=== PATIENT | male | born 1970 | race Caucasian/White ===

== ENCOUNTER → 2024-03-29 08:56 | Outpatient (BNVA) | payer OTHER, SELFPAY | PROVIDERS: Referring Provider Nurse Practitioner; Visit Provider Student in an Organized Health Care Education/Training Program | DX: K46.9 Unspecified abdominal hernia without obstruction or gangrene (principal) | CPT/HCPCS: 99204 ==

== ENCOUNTER → 2024-04-07 09:19 | Outpatient (BNVA) | payer OTHER, SELFPAY | PROVIDERS: Visit Provider Student in an Organized Health Care Education/Training Program | DX: K46.9 Unspecified abdominal hernia without obstruction or gangrene (principal) | CPT/HCPCS: 99214 ==

== ENCOUNTER → 2024-04-13 12:40 | Outpatient (BNVA) | payer OTHER, SELFPAY | PROVIDERS: Referring Provider Nurse Practitioner; Visit Provider Nurse Practitioner Family | DX: L57.0 Actinic keratosis (principal); L21.8 Other seborrheic dermatitis; L02.423 Furuncle of right upper limb; L02.424 Furuncle of left upper limb | CPT/HCPCS: 17000; 99204 ==

== ENCOUNTER 2024-04-19 06:50 | Day surgery (SDC) | payer OTHER, SELFPAY ==
[2024-04-19] VITALS (9 sets, daily range): BP systolic 115–164; BP diastolic 83–109; PULSE 55–119; RESP 18; TEMP 36.1–36.2; O2SAT 93–99; BMI 38.0
[2024-04-19] MEDS: sodium chloride 0.9% 1,000 ML 30 ML IV (08:20)
--- NOTE | 2024-04-19 08:45 | W.PM.OPSUD ---
Surgery/Procedure H&P Update DATE OF PROCEDURE: April 19, 2024 DATE H&P PERFORMED: 04/07/24 H&P UPDATE INFORMATION: I have reviewed H&P completed within last 30 days, I have examined patient prior to procedure and No changes to prior documentation PLANNED PROCEDURE: Operation Date: 04/19/24 08:25 Proposed Procedures p Umbilical Hernia Repair Open Umbilical Hernia Repair w/ Mesh [id number], k46.9(Not Applicable) - Pravin Herrera MD
[2024-04-19] MEDS: ceFAZolin 2,000 mg SDV 2000 MG IVP (09:00)
[2024-04-19] MEDS: lidocaine-epi 1% PF 1:200,000 30 mL SDV INJECTION (09:25)
--- NOTE | 2024-04-19 09:49 | W.PM.BPONFUL ---
Date of Procedure: 04/19/2024 Surgeon: Dr. Herrera Special Events Fundraiser(s): None Procedure(s) performed: Open umbilical hernia repair using dura mesh Findings of the procedure(s): 2 x 2 cm fascial defect. Hernia sac did not contain bowel. Estimated blood loss: 5 cc Specimen(s) removed: None Post-operative diagnosis: Umbilical hernia Pathology: None Implant(s): Duramesh #1 Anesthesia: General Anesthesia Complications: None Brief history/preop diagnosis: 53-year-old male who presented with an umbilical hernia. It was causing patient discomfort. Discussed risk and benefits of umbilical hernia repair and patient agreed to proceed. Full operative report: Consent was obtained for open umbilical hernia repair. Patient was taken to the operating room. He was placed supine. Preoperative Ancef was administered. SCDs were on and working. General anesthesia was induced. The abdomen was prepped and draped in the usual sterile fashion. A curvilinear incision at the umbilicus was carried out. Hernia sac was dissected bluntly and reduced into the abdomen abdomen. It did not contain bowel. Fascial edges were freshened. The fascial defect was 2 x 2 cm. Dura mesh #1 was used in an interrupted fashion to close the fascial defect. Adequate hemostasis was confirmed. A running 3-0 Vicryl was used in the deep dermal layer. Skin was closed using 4-0 Monocryl. Surgical glue was applied afterwards. Patient woke up from anesthesia without any complications and transferred to PACU. Condition: Stable Dispostion: Home
[2024-04-19] MEDS: fentaNYL 50 mcg/mL INJ 2mL IVP (10:00)
[2024-04-19] MEDS: metoprolol tartrate 1 mg/1 mL SDV 5 mL IVP (10:25)
--- NOTE | 2024-04-19 11:20 | ANE.PACU2 ---
Inpatient post-anesthesia follow up: Airway intact: Yes Vital signs: Temperature 97.2 F Pulse Rate 102 Respiratory Rate 18 Blood Pressure 133/91 Pulse Oximetry 93 Oxygen Delivery Me thod Room Air Oxygen Flow Rate 8 Fraction of Inspir ed Oxygen Hydration adequate: Yes Nausea and vomiting: No Pain level: 1 Mental status: Baseline
== END 2024-04-19 11:20 | disposition home or self-care (01) ==
PROVIDERS: Visit Provider Student in an Organized Health Care Education/Training Program
PROC: (CPT 49591; principal; 2024-04-19 08:15)
DX: K42.9 Umbilical hernia without obstruction or gangrene (principal); Z87.891 Personal history of nicotine dependence
CPT/HCPCS: 49591; C1713; J0690; J1100; J1170; J2250; J2405; J2704; J2710; J3010; J3490; J7030

== ENCOUNTER → 2024-05-02 08:58 | Outpatient (BNVA) | payer OTHER, SELFPAY | PROVIDERS: Visit Provider Student in an Organized Health Care Education/Training Program | DX: K46.9 Unspecified abdominal hernia without obstruction or gangrene (principal) | CPT/HCPCS: 99214 ==

== ENCOUNTER 2024-06-23 12:15 | Emergency (ER) | payer OTHER, SELFPAY ==
[2024-06-23 12:24] VITALS: BP 137/87; PULSE 77; RESP 16; TEMP 36.5; O2SAT 95; BMI 39.5
--- NOTE | 2024-06-23 13:46 | ECG_ITS ---
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 Measurements Intervals [place] Rate: 105 P: 70 DE: 134 QRS: 91 QRSD: 83 T: 60 QT: 324 QTc: 429 Interpretive Statements SINUS TACHYCARDIA BORDERLINE RIGHT AXIS DEVIATION [QRS AXIS > 90] POSSIBLE RIGHT VENTRICULAR CONDUCTION DELAY [RSR (QR) IN V1/V2] No previous ECG available for comparison Electronically Signed On 06-23-2024 21:55:59 PROP DRAWER by Markell Martin M.D. [id number]
[2024-06-23 15:31] LABS: Basophils % 0.4 %; Eosinophils % 0.2 %; Lymphocytes # 1.5 10^3/uL (0.8-4.8); Lymphocytes % 14.5 %; Mean Corpuscular HGB Conc 33.9 g/dL (30-55); Mean Corpuscular Hemoglobin 29.6 pg (27-33); Mean Corpuscular Volume 87.3 fl (82-101); Monocytes # 0.5 10^3/uL (0.2-0.9); Neutrophils # 8.14 10^3/uL (1.8-7.7); Neutrophils % 79.5 %; Nucleated Red Blood Cells % 0 %; Platelet Count 302 10^3/cmm (157-399); Red Blood Count 5.61 10^6/uL (3.85-5.65); Red Cell Distribution Width 11.9 % (12.1-15.1); White Blood Count 10.23 10^3/uL (3.29-11.43)
[2024-06-23 15:59] LABS: Alanine Aminotransferase 34 U/L (0-41); Albumin Level 4.8 g/dL (3.5-5.2); Alkaline Phosphatase 74 U/L (40-130); Anion Gap 20.4 (5-19); Aspartate Amino Transferase 34 U/L (0-40); Blood Urea Nitrogen 13 mg/dL (6-20); Calcium 10.2 mg/dL (8.5-10.5); Carbon Dioxide 22 mmol/L (22-29); Chloride 101 mmol/L (98-107); Creatinine Clr Calc Pharmacy 99.1289; Glomerular Filtration Rate 70.6 mL/min (90-130); Glucose 124 mg/dL (65-115); Lipase 35 U/L (13-60); Osmolality Calculated 290 mOsm/kg (285-295); Potassium 4.4 mmol/L (3.5-5.1); Sodium 139 mmol/L (136-145); Total Bilirubin 0.8 mg/dL (0.15-1.2); Total Protein 7.8 g/dL (6.6-8.7)
--- NOTE | 2024-06-23 18:35 | ED_ITS ---
HPI - Nausea/Vomiting/Diarrhea 2 General: Chief complaint: Nausea/Vomiting/Diarrhea Stated complaint: vomitting clear muscus Time Seen by Provider: 06/23/24 12:25 History of Present Illness: 53-year-old man who presents the emergen cy room with vomiting. He says about once a year he gets something like this. He says over the last week or so he has been having vomiting in the morning. He will have phlegm and throw up. Says though last day or so he has not been to keep anything down. He cannot keep down his antiemetic pills. No focal abdominal pain. No diarrhea. Related Data Home Medications Medication Instructions Recorded Confirmed aripiprazole 20 mg tablet (Abilify) 20 mg PO DAILY 03/29/24 05/02/24 atorvastatin 10 mg tablet 10 mg PO DAILY 03/29/24 05/02/24 baclofen 10 mg tablet 10 mg PO TID PRN Pain 03/29/24 05/02/24 gabapentin 600 mg tablet 600 mg PO BID 03/29/24 05/02/24 hydroxyzine HCl 50 mg tablet 50 mg PO TID PRN Anxiety 03/29/24 05/02/24 lisinopril 10 mg tablet 10 mg PO DAILY 03/29/24 05/02/24 melatonin 5 mg capsule 5 mg PO .1 HS 03/29/24 05/02/24 omeprazole 20 mg capsule,delayed 20 mg PO DAILY 03/29/24 05/02/24 release prazosin 5 mg capsule 5 mg PO DAILY 03/29/24 05/02/24 sildenafil 100 mg tablet 100 mg PO DAILY PRN Sexual Activity 03/29/24 05/02/24 tamsulosin 0.4 mg capsule 0.4 mg PO DAILY 03/29/24 05/02/24 Previous Rx's Medication Instructions Recorded ondansetron 8 mg disintegrating 8 mg PO Q6H #14 tabs 06/23/24 tablet promethazine 25 mg rectal 25 mg OR Q6H PRN nausea and 06/23/24 suppository vomiting #12 ea Allergies Allergy/AdvReac Type Severity Reaction Status Date / Time clonazepam Allergy ADR-Irritab Verified 06/23/24 12:33 le Opioids - Morphine Analogues Allergy ADR-Nausea Verified 06/23/24 12:33 Review of Systems 2 Narrative: Constitutional symptoms: Negative except as documented in HPI. Skin symptoms: Negative except as documented in HPI. Eye symptoms: Negative except as documented in HPI. ENMT symptoms: Negative except as documented in HPI. Respiratory symptoms: Negative except as documented in HPI. Cardiovascular symptoms: Negative except as documented in HPI. Gastrointestinal symptoms: Negative except as documented in HPI. Genitourinary symptoms: Negative except as documented in HPI. Musculoskeletal symptoms: Negative except as documented in HPI. Neurologic symptoms: Negative except as documented in HPI. Psychiatric symptoms: Negative except as documented in HPI. Endocrine symptoms: Negative except as documented in HPI. PFSH ED 2 PFSH: Surgical History (Updated 05/02/24 @ 10:32 by Pravin Herrera MD) History of hernia surgery 04/19/24 Open umbilical hernia repair using dura mesh- Dr Herrera Social History Smoking and tobacco/nicotine status: former use of tobacco/nicotine Alcohol intake: never Physical Exam 2 Narrative: EXAM NARRATIVE: General: Alert, no acute distress. Skin: Warm, dry. Head: Normocephalic, atraumatic. Neck: Supple, trachea midline. Eye: Extraocular movements are intact. Ears, nose, mouth and throat: mucosa moist. Cardiovascular: Regular, Normal peripheral perfusion. Respiratory: Lungs are clear to auscultation, respirations are non-labored, breath sounds are equal, Symmetrical chest wall expansion. Gastrointestinal: Soft, Nontender, Non distended Musculoskeletal: Normal ROM, no deformity. Neurological: Alert and oriented, No focal neurological deficit observed. Psychiatric: Cooperative, appropriate mood & affect. Course 2 Vital Signs: Vital signs: Vital Signs Temperature 97.7 F 06/23/24 12:24 Pulse Rate 94 06/23/24 19:15 Respiratory Rate 16 06/23/24 19:15 Blood Pressure 146/108 06/23/24 19:15 Pulse Oximetry 99 06/23/24 19:15 Oxygen Delivery Me thod Room Air 06/23/24 19:15 MDM - Nausea/Vomiting/Diarrhea Medical Decision Making Medical decision making: Differential diagnosis for this patient with nausea and vomiting including but not limited to and based on the above HPI, review of systems and physical exam: Urinary tract infection. Appendicitis. Cholecystis. colitis. small bowel obstruction. crohn's flare. pancreatitis. gastritis. peptic ulcer. cyclic vomiting. Viral illness. Influenza. COVID. - Workup - labwork and imaging ordered to evaluate, rule in and rule out above pathologies. Lab Review: Laboratory results were reviewed and interpreted by myself the emergency room physician. Lab work is unremarkable. No leukocytosis. No anemia. No renal failure. Lipase is normal. Liver enzymes are normal. I reviewed the patient's medical record. Reexamination: Patient is required 8 mg of Zofran and then required Compazine Benadryl and more Zofran. He is somewhat improved on discharge. Assessment and plan: Nausea and vomiting ?8 mg IV Zofran, some improvement. Then 10 mg Compazine, 50 mg Benadryl and another 8 mg of Zofran. - Discharged home - Discussed plan with patient. Answered any questions. - Evaluation and treatment of this problem were appropriate in the emergency setting. Lab Data 06/23/24 15:00 06/23/24 15:00 Laboratory Results WBC 10.23 10^3/uL (3.29-11.43) 06/23/24 15:00 RBC 5.61 10^6/uL (3.85-5.65) 06/23/24 15:00 Hgb 16.60 g/dL (11.27-16.99) 06/23/24 15:00 Hct 49.0 % (37-53) 06/23/24 15:00 MCV 87.3 fl (82-101) 06/23/24 15:00 MCH 29.6 pg (27-33) 06/23/24 15:00 MCHC 33.9 g/dL (30-55) 06/23/24 15:00 RDW 11.9 % (12.1-15.1) L 06/23/24 15:00 Plt Count 302 10^3/cmm (157-399) 06/23/24 15:00 MPV 11.0 fL (7.4-10.4) H 06/23/24 15:00 Neut % (Auto) 79.5 % 06/23/24 15:00 Lymph % (Auto) 14.5 % 06/23/24 15:00 [place] % (Auto) 5.0 % 06/23/24 15:00 Eos % (Auto) 0.2 % 06/23/24 15:00 Baso % (Auto) 0.4 % 06/23/24 15:00 Neut # (Auto) 8.14 10^3/uL (1.8-7.7) H 06/23/24 15:00 Lymph # (Auto) 1.5 10^3/uL (0.8-4.8) 06/23/24 15:00 [place] # (Auto) 0.5 10^3/uL (0.2-0.9) 06/23/24 15:00 Eos # (Auto) 0.0 10^3/uL (0.0-0.8) 06/23/24 15:00 Baso # (Auto) 0.0 10^3/uL (0.0-0.1) 06/23/24 15:00 Nucleated RBC % (auto) 0 % 06/23/24 15:00 Nucleated RBCs # 0.0 /100WBC 06/23/24 15:00 Sodium 139 mmol/L (136-145) 06/23/24 15:00 Potassium 4.4 mmol/L (3.5-5.1) 06/23/24 15:00 Chloride 101 mmol/L (98-107) 06/23/24 15:00 Carbon Dioxide 22 mmol/L (22-29) 06/23/24 15:00 Anion Gap 20.4 (5-19) H 06/23/24 15:00 BUN 13 mg/dL (6-20) 06/23/24 15:00 Creatinine 1.1 mg/dL (0.7-1.2) 06/23/24 15:00 GFR Calculation 70.6 mL/min (90-130) L 06/23/24 15:00 Glucose 124 mg/dL (65-115) H 06/23/24 15:00 Calculated Osmolality 290 mOsm/kg (285-295) 06/23/24 15:00 Calcium 10.2 mg/dL (8.5-10.5) 06/23/24 15:00 Total Bilirubin 0.8 mg/dL (0.15-1.2) 06/23/24 15:00 AST 34 U/L (0-40) 06/23/24 15:00 ALT 34 U/L (0-41) 06/23/24 15:00 Alkaline Phosphatase 74 U/L (40-130) 06/23/24 15:00 Total Protein 7.8 g/dL (6.6-8.7) 06/23/24 15:00 Albumin 4.8 g/dL (3.5-5.2) 06/23/24 15:00 Globulin 3.0 g/dL (1.3-4.6) 06/23/24 15:00 Lipase 35 U/L (13-60) 06/23/24 15:00 No radiology studies performed this visit Discharge Plan Discharge Patient Disposition: Home Clinical Impression: Gastroenteritis Condition: Stable Prescriptions: New promethazine 25 mg suppository 25 mg OR Q6H PRN (Reason: nausea and vomiting) Qty: 12 0RF ondansetron 8 mg tablet,disintegrating 8 mg PO Q6H Qty: 14 0RF Rx Instructions: Take 1/2-1 tab every 6 hours as needed for nausea and vomiting No Action aripiprazole [Abilify] 20 mg tablet 20 mg PO DAILY atorvastatin 10 mg tablet 10 mg PO DAILY gabapentin 600 mg tablet 600 mg PO BID baclofen 10 mg tablet 10 mg PO TID PRN (Reason: Pain) hydroxyzine HCl 50 mg tablet 50 mg PO TID PRN (Reason: Anxiety) lisinopril 10 mg tablet 10 mg PO DAILY melatonin 5 mg capsule 5 mg PO .1 HS omeprazole 20 mg capsule,delayed release(DR/EC) 20 mg PO DAILY prazosin 5 mg capsule 5 mg PO DAILY tamsulosin 0.4 mg capsule 0.4 mg PO DAILY sildenafil 100 mg tablet 100 mg PO DAILY PRN (Reason: Sexual Activity) Rx Instructions: administer 30 minutes to 4 hours before activity Discharge Orders: Discharge ED (Routine); Ordered 06/23/24 Ordered By: Deysi Stanley Discharge Diet: Advance as tolerated Discharge Activity: Increase activity as tolerated Patient Instructions: Acute Nausea and Vomiting (DC), Opioid Safety, Pain Management Activity Restrictions/Additional Instructions: Thank you for choosing [facility] for your healthcare needs today. Please realize this is an emergency room and that we are providing you with a medical screening exam and this may not be complete and all inclusive of all the testing and or work up that you may need to determine your ailment or severity of your illness. You have been screened and evaluated and felt safe for discharge. Health conditions do change or evolve sometimes and as such it is important that you follow up with your Primary Doctor to be re checked, 3-5 days is a general good time frame for follow up. You are always welcome to return to the ED for re assessment if your symptoms are worsening or you have new concerns Coding Level of Care Code ED Order Processing Manager for Leonid Alva
[2024-06-23] MEDS: ondansetron 2 mg/ML SDV 2 mL 8 MG IVP ×3 (19:08→20:53)
[2024-06-23 19:15] VITALS: BP 146/108; PULSE 94; RESP 16; O2SAT 99
[2024-06-23] MEDS: diphenhydrAMINE 50 mg/mL SDV 1mL IVP (20:13)
[2024-06-23 20:17] VITALS: BP 154/133; PULSE 92; RESP 16; O2SAT 97
[2024-06-23] MEDS: prochlorperazine 10 mg/2 mL Inj IVP (20:17)
[2024-06-23 20:54] VITALS: BP 199/136
[2024-06-23] MEDS: cloNIDine 0.1 mg Tablet PO (20:54)
--- NOTE | 2024-06-23 20:59 | PC.NURSE ---
Addendum entered by Jorgito Conn RN 06/23/24 21:09: PT DID VERBALIZE THAT HE WAS READY TO GO HOME AND DID NOT WANT TO STAY HERE. Original Note: PROVIDER MADE AWARE OF BP BEFORE PT LEFT. PT DID GET A CLONIDINE BEFORE D/C AND DID TAKE HOME ZOFRAN TO TAKE ORALLY PER DR BYRNES.
[2024-06-23 21:10] VITALS: BP 207/130; PULSE 82; RESP 22; O2SAT 97
== END 2024-06-23 21:11 | disposition home or self-care (01) ==
PROVIDERS: Emergency Medicine; Emergency Provider Emergency Medicine
DX: K52.9 Noninfective gastroenteritis and colitis, unspecified (principal); Z87.891 Personal history of nicotine dependence
CPT/HCPCS: 36415; 80053; 83690; 85025; 93005; 96374; 96375; 96376; 99284; J0780; J1200; J2405

== ENCOUNTER 2024-08-02 15:33 | Emergency (ER) | payer OTHER, SELFPAY ==
[2024-08-02] VITALS (7 sets, daily range): BP systolic 116–176; BP diastolic 70–97; PULSE 56–87; RESP 17–18; TEMP 36.8; O2SAT 93–100; BMI 21.2
--- NOTE | 2024-08-02 15:43 | XR_ITS ---
WS: [id number] Portable AP upright chest, 08/02/2024 Clinical Data: htn Comparison: None. Findings: No nodules, masses or effusions are seen. The heart is normal. The pulmonary vascularity is not increased. No pneumonia or pneumothorax is seen. XR/XR chest 1V portable [id number] Impression: Negative chest.
--- NOTE | 2024-08-02 15:44 | ECG_ITS ---
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 Measurements Intervals [place] Rate: 75 P: 59 [place]: 139 QRS: 65 QRSD: 86 T: 40 QT: 376 QTc: 420 Interpretive Statements SINUS RHYTHM WITH MARKED SINUS ARRHYTHMIA NONSPECIFIC T-WAVE ABNORMALITY Compared to ECG 06/23/2024 13:46:20 T-wave abnormality now present Sinus tachycardia no longer present Electronically Signed On 08-05-2024 23:13:10 BRINE MIXER OPERATOR by Markell Martin M.D. [id number]
--- NOTE | 2024-08-02 18:17 | ECG_ITS ---
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 Measurements Intervals [place] Rate: 73 P: 58 HI: 133 QRS: 64 QRSD: 86 T: 38 QT: 383 QTc: 422 Interpretive Statements SINUS RHYTHM WITH OCCASIONAL ECTOPIC PREMATURE COMPLEXES POSSIBLE INFERIOR MYOCARDIAL INFARCTION , PROBABLY OLD [30 ms Q WAVE IN II/aVF] Compared to ECG 08/02/2024 15:46:09 Myocardial infarct finding now present Sinus arrhythmia no longer present T-wave abnormality no longer present Electronically Signed On 08-05-2024 23:11:46 THROW OUT CLERK by Markell Martin M.D. [id number]
--- NOTE | 2024-08-02 18:21 | W.ED.CHESTPA ---
HPI - Chest Pain General: Chief Complaint: Chest Pain Stated Complaint: high BP/high heart rate Time Seen by Provider: 08/02/24 18:07 Source: patient Mode of arrival: ambulatory Limitations: no limitations History of Present Illness: 53-year-old male states he is recently diagnosed with A-fib a few weeks ago states has been on Cardizem he states he feels like he is having reaction to it he states that his heart rates felt irregular and he feels like his heart is beating hard he states been having some pain he tells me his pain currently is a 2 out of 10 is not severe is also had some right upper quadrant pain he had vomiting last night he denies any fevers or shortness of breath. Related Data Home Medications Medication Instructions Recorded Confirmed aripiprazole 20 mg tablet (Abilify) 20 mg PO DAILY 03/29/24 05/02/24 atorvastatin 10 mg tablet 10 mg PO DAILY 03/29/24 05/02/24 baclofen 10 mg tablet 10 mg PO TID PRN Pain 03/29/24 05/02/24 gabapentin 600 mg tablet 600 mg PO BID 03/29/24 05/02/24 hydroxyzine HCl 50 mg tablet 50 mg PO TID PRN Anxiety 03/29/24 05/02/24 lisinopril 10 mg tablet 10 mg PO DAILY 03/29/24 05/02/24 melatonin 5 mg capsule 5 mg PO .1 HS 03/29/24 05/02/24 omeprazole 20 mg capsule,delayed 20 mg PO DAILY 03/29/24 05/02/24 release prazosin 5 mg capsule 5 mg PO DAILY 03/29/24 05/02/24 sildenafil 100 mg tablet 100 mg PO DAILY PRN Sexual Activity 03/29/24 05/02/24 tamsulosin 0.4 mg capsule 0.4 mg PO DAILY 03/29/24 05/02/24 Previous Rx's Medication Instructions Recorded ondansetron 8 mg disintegrating 8 mg PO Q6H #14 tabs 06/23/24 tablet promethazine 25 mg rectal 25 mg MN Q6H PRN nausea and 06/23/24 suppository vomiting #12 ea Allergies Allergy/AdvReac Type Severity Reaction Status Date / Time clonazepam Allergy ADR-Irritab Verified 06/23/24 12:33 le Opioids - Morphine Analogues Allergy ADR-Nausea Verified 06/23/24 12:33 PFSH ED PFS: Surgical History (Updated 05/02/24 @ 10:32 by Pravin Herrera MD) History of hernia surgery 04/19/24 Open umbilical hernia repair using dura mesh- Dr Herrera Social History Smoking and tobacco/nicotine status: former use of tobacco/nicotine Alcohol intake: never Physical Exam Const: COMMON NORMALS: no acute distress, patient oriented x3 and healthy appearing HENMT: COMMON NORMALS: normocephalic and atraumatic HEAD & SCALP: normocephalic and atraumatic Neck/C-Spine: COMMON NORMALS: full ROM and supple Chest: COMMONS NORMALS: normal inspection of the chest and normal palpation of entire chest wall Resp: COMMON NORMALS: normal respiratory effort, No retractions, No use of accessory muscles and clear to auscultation bilaterally AUSCULTATION: clear to auscultation bilaterally Cardio: COMMON NORMALS: regular rate, regular rhythm and No murmurs present (Cardio) RATE: regular rate RHYTHM: regular rhythm GI: COMMON NORMALS: Normal to inspection, nondistended, normoactive bowel sounds present, Soft to palpation and no masses PALPATION: Yes Soft to palpation and Yes Tenderness to palpation present (GI) Details: RUQ Extremity: COMMON NORMALS: normal to inspection and full ROM Neuro: COMMON NORMALS: patient oriented x3, moves all extremities and no focal motor deficits Psych: COMMON NORMALS: mental status grossly normal, Normal thought process present and cooperative THOUGHT PROCESS: Normal thought process present Skin: COMMON NORMALS: no rashes or lesions noted and no wounds GENERAL SKIN EXAM: no rashes or lesions noted Course Vital Signs: Vital signs: Vital Signs Temperature 98.2 F 08/02/24 15:45 Pulse Rate 58 L 08/02/24 21:19 Respiratory Rate 18 08/02/24 20:51 Blood Pressure 125/84 08/02/24 21:19 Pulse Oximetry 99 08/02/24 21:19 Oxygen Delivery Me thod Room Air 08/02/24 20:51 MDM - Chest Pain Medical Decision Making Patient presents here with chest pain atypical in nature initial repeat troponins are negative he has no signs of ACS no signs of pulmonary embolism also having some abdominal pain which is improved as well no signs of acute surgical abdomen blood work is normal he is follow-up with PCP and return if worsening. Medical Records I reviewed the patient's medical records. Lab Data I reviewed the patient's lab results. 08/02/24 18:20 08/02/24 18:20 Radiology Impressions Chest X-Ray 08/02/24 15:43 Impression: Negative chest. Laboratory Results WBC 9.73 10^3/uL (3.29-11.43) 08/02/24 18:20 RBC 5.07 10^6/uL (3.85-5.65) 08/02/24 18:20 Hgb 15.20 g/dL (11.27-16.99) 08/02/24 18:20 Hct 44.6 % (37-53) 08/02/24 18:20 MCV 88.0 fl (82-101) 08/02/24 18:20 MCH 30.0 pg (27-33) 08/02/24 18:20 MCHC 34.1 g/dL (30-55) 08/02/24 18:20 RDW 13.1 % (12.1-15.1) 08/02/24 18:20 Plt Count 324 10^3/cmm (157-399) 08/02/24 18:20 MPV 11.3 fL (7.4-10.4) H 08/02/24 18:20 Neut % (Auto) 82.0 % 08/02/24 18:20 Lymph % (Auto) 12.7 % 08/02/24 18:20 [place] % (Auto) 4.7 % 08/02/24 18:20 Eos % (Auto) 0.0 % 08/02/24 18:20 Baso % (Auto) 0.3 % 08/02/24 18:20 Neut # (Auto) 7.97 10^3/uL (1.8-7.7) H 08/02/24 18:20 Lymph # (Auto) 1.2 10^3/uL (0.8-4.8) 08/02/24 18:20 [place] # (Auto) 0.5 10^3/uL (0.2-0.9) 08/02/24 18:20 Eos # (Auto) 0.0 10^3/uL (0.0-0.8) 08/02/24 18:20 Baso # (Auto) 0.0 10^3/uL (0.0-0.1) 08/02/24 18:20 Nucleated RBC % (auto) 0 % 08/02/24 18:20 Nucleated RBCs # 0.0 /100WBC 08/02/24 18:20 Sodium 140 mmol/L (136-145) 08/02/24 18:20 Potassium 4.1 mmol/L (3.5-5.1) 08/02/24 18:20 Chloride 103 mmol/L (98-107) 08/02/24 18:20 Carbon Dioxide 21 mmol/L (22-29) L 08/02/24 18:20 Anion Gap 20.1 (5-19) H 08/02/24 18:20 BUN 10 mg/dL (6-20) 08/02/24 18:20 Creatinine 0.9 mg/dL (0.7-1.2) 08/02/24 18:20 GFR Calculation 89.0 mL/min (90-130) L 08/02/24 18:20 Glucose 121 mg/dL (65-115) H 08/02/24 18:20 Calculated Osmolality 290 mOsm/kg (285-295) 08/02/24 18:20 Calcium 10.2 mg/dL (8.5-10.5) 08/02/24 18:20 Total Bilirubin 0.6 mg/dL (0.15-1.2) 08/02/24 18:20 AST 28 U/L (0-40) 08/02/24 18:20 ALT 30 U/L (0-41) 08/02/24 18:20 Alkaline Phosphatase 70 U/L (40-130) 08/02/24 18:20 Troponin T Baseline 23 ng/L (0-15) H 08/02/24 18:20 Troponin T 120 Minute 19.85 ng/L (0-15) H 08/02/24 20:24 Delta Troponin T -3.15 ABS# (0-10) L 08/02/24 20:24 Total Protein 7.8 g/dL (6.6-8.7) 08/02/24 18:20 Albumin 5.1 g/dL (3.5-5.2) 08/02/24 18:20 Globulin 2.7 g/dL (1.3-4.6) 08/02/24 18:20 Lipase 38 U/L (13-60) 08/02/24 18:20 No radiology studies performed this visit EKG Data EKG 1: I personally reviewed and interpreted this EKG as follows: EKG interpretation date: 08/02/24 EKG interpretation time: 18:17 Interpretation: nsr hr [address] elevation qrs 86 qtc 408 Discharge Plan Discharge Patient Disposition: Home Clinical Impression: Chest pain Condition: Stable Prescriptions: No Action aripiprazole [Abilify] 20 mg tablet 20 mg PO DAILY atorvastatin 10 mg tablet 10 mg PO DAILY gabapentin 600 mg tablet 600 mg PO BID baclofen 10 mg tablet 10 mg PO TID PRN (Reason: Pain) hydroxyzine HCl 50 mg tablet 50 mg PO TID PRN (Reason: Anxiety) lisinopril 10 mg tablet 10 mg PO DAILY melatonin 5 mg capsule 5 mg PO .1 HS omeprazole 20 mg capsule,delayed release(DR/EC) 20 mg PO DAILY prazosin 5 mg capsule 5 mg PO DAILY tamsulosin 0.4 mg capsule 0.4 mg PO DAILY sildenafil 100 mg tablet 100 mg PO DAILY PRN (Reason: Sexual Activity) Rx Instructions: administer 30 minutes to 4 hours before activity promethazine 25 mg suppository 25 mg MN Q6H PRN (Reason: nausea and vomiting) Qty: 12 0RF ondansetron 8 mg tablet,disintegrating 8 mg PO Q6H Qty: 14 0RF Rx Instructions: Take 1/2-1 tab every 6 hours as needed for nausea and vomiting Discharge Orders: Discharge ED (Routine); Ordered 08/02/24 Ordered By: Jemima Morin Discharge Diet: Advance as tolerated Discharge Activity: Resume usual activity Patient Instructions: Chest Pain (ED) Coding Level of Care Code ED Master Fire Control Technician for Leonid Alva
[2024-08-02 18:33] LABS: Basophils % 0.3 %; Hematocrit 44.6 % (37-53); Lymphocytes # 1.2 10^3/uL (0.8-4.8); Lymphocytes % 12.7 %; Mean Corpuscular HGB Conc 34.1 g/dL (30-55); Mean Platelet Volume 11.3 fL (7.4-10.4); Monocytes # 0.5 10^3/uL (0.2-0.9); Monocytes % 4.7 %; Neutrophils # 7.97 10^3/uL (1.8-7.7); Nucleated Red Blood Cells % 0 %; Platelet Count 324 10^3/cmm (157-399); Red Blood Count 5.07 10^6/uL (3.85-5.65); Red Cell Distribution Width 13.1 % (12.1-15.1); White Blood Count 9.73 10^3/uL (3.29-11.43)
[2024-08-02 18:50] LABS: Troponin(5th) Baseline 23 ng/L (0-15)
[2024-08-02] MEDS: ondansetron 2 mg/ML SDV 2 mL 4 MG IVP (18:53)
[2024-08-02] MEDS: morphine 4 mg/mL SDV 1 mL IVP (18:53)
[2024-08-02 19:20] LABS: Alanine Aminotransferase 30 U/L (0-41); Albumin Level 5.1 g/dL (3.5-5.2); Alkaline Phosphatase 70 U/L (40-130); Aspartate Amino Transferase 28 U/L (0-40); Blood Urea Nitrogen 10 mg/dL (6-20); Calcium 10.2 mg/dL (8.5-10.5); Carbon Dioxide 21 mmol/L (22-29); Chloride 103 mmol/L (98-107); Creatinine Clr Calc Pharmacy 91.2541; Globulin 2.7 g/dL (1.3-4.6); Glucose 121 mg/dL (65-115); Lipase 38 U/L (13-60); Osmolality Calculated 290 mOsm/kg (285-295); Sodium 140 mmol/L (136-145); Total Bilirubin 0.6 mg/dL (0.15-1.2); Total Protein 7.8 g/dL (6.6-8.7)
[2024-08-02 19:23] LABS: Anion Gap 20.1 (5-19); Potassium 4.1 mmol/L (3.5-5.1)
--- NOTE | 2024-08-02 20:09 | ECG_ITS ---
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 Measurements Intervals [place] Rate: 61 P: 46 RI: 128 QRS: 52 QRSD: 86 T: 36 QT: 403 QTc: 407 Interpretive Statements SINUS RHYTHM WITH MARKED SINUS ARRHYTHMIA Compared to ECG 08/02/2024 18:17:42 Myocardial infarct finding no longer present Electronically Signed On 08-05-2024 23:31:44 SCREENING TECHNICIAN by Markell Martin M.D. [id number]
[2024-08-02 20:59] LABS: Troponin 5 2HR 19.85 ng/L (0-15)
[2024-08-02 21:03] LABS: Troponin 5 2HR Delta -3.15 ABS# (0-10)
== END 2024-08-02 21:21 | disposition home or self-care (01) ==
PROVIDERS: Emergency Provider Emergency Medicine
DX: R07.9 Chest pain, unspecified (principal); Z87.891 Personal history of nicotine dependence
CPT/HCPCS: 36415; 71045; 80053; 83690; 84484; 85025; 93005; 96374; 96375; 99285; J2270; J2405

== ENCOUNTER 2024-08-05 07:27 | Inpatient (IN) | payer OTHER, SELFPAY ==
[2024-08-05 07:34] VITALS: BP 212/116; PULSE 92; RESP 17; TEMP 36.9; O2SAT 98; BMI 21.2
--- NOTE | 2024-08-05 07:36 | ECG_ITS ---
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 Measurements Intervals [place] Rate: 95 P: 111 MD: 132 QRS: 139 QRSD: 101 T: 111 QT: 357 QTc: 451 Interpretive Statements SINUS RHYTHM WITH OCCASIONAL ECTOPIC PREMATURE COMPLEXES ARM LEADS REVERSED [INVERTED P AND QRS IN I] Compared to ECG 08/02/2024 20:22:56 Sinus arrhythmia no longer present Electronically Signed On 08-05-2024 23:04:50 EPIC PRELUDE ANALYST by Markell Martin M.D. [id number]
[2024-08-05 07:50] LABS: Basophils # 0.1 10^3/uL (0.0-0.1); Basophils % 0.8 %; Eosinophils # 0.1 10^3/uL (0.0-0.8); Eosinophils % 0.6 %; Hematocrit 43.8 % (37-53); Lymphocytes # 1.7 10^3/uL (0.8-4.8); Lymphocytes % 20.9 %; Mean Corpuscular HGB Conc 34.2 g/dL (30-55); Mean Corpuscular Hemoglobin 29.9 pg (27-33); Mean Corpuscular Volume 87.3 fl (82-101); Mean Platelet Volume 11.2 fL (7.4-10.4); Monocytes # 0.7 10^3/uL (0.2-0.9); Monocytes % 8.8 %; Neutrophils # 5.46 10^3/uL (1.8-7.7); Neutrophils % 68.6 %; Nucleated Red Blood Cells % 0 %; Platelet Count 292 10^3/cmm (157-399); Red Blood Count 5.02 10^6/uL (3.85-5.65); Red Cell Distribution Width 12.4 % (12.1-15.1); White Blood Count 7.95 10^3/uL (3.29-11.43)
--- NOTE | 2024-08-05 07:50 | CTR_ITS ---
PROCEDURE INFORMATION: Exam: CT Head Without Contrast Exam date and time: 08/05/2024 8:11 AM Age: 53 years old Clinical indication: Other: Vomiting TECHNIQUE: Imaging protocol: Computed tomography of the head without contrast. Radiation optimization: All CT scans at this facility use at least one of these dose optimization techniques: automated exposure control; mA and/or kV adjustment per patient size (includes targeted exams where dose is matched to clinical indication); or iterative reconstruction. COMPARISON: No relevant prior studies available. RADIATION DOSE METRICS: Total DLP (mGy-cm): 1253.03 FINDINGS: Brain: Normal. No hemorrhage. Unremarkable white matter. No mass effect. Cerebral ventricles: No ventriculomegaly. Paranasal sinuses: Visualized sinuses are unremarkable. No fluid levels. Mastoid air cells: Visualized mastoid air cells are well aerated. Bones: Unremarkable. No acute fracture. Soft tissues: Unremarkable. Other findings: Intracranial atherosclerotic calcifications. CT/CT head wo con* [id number] IMPRESSION: No acute intracranial abnormality.
--- NOTE | 2024-08-05 07:50 | CTR_ITS ---
PROCEDURE INFORMATION: Exam: CT Abdomen Without Contrast Exam date and time: 08/05/2024 8:13 AM Age: 53 years old Clinical indication: Vomiting TECHNIQUE: Imaging protocol: Computed tomography of the abdomen without contrast. Radiation optimization: All CT scans at this facility use at least one of these dose optimization techniques: automated exposure control; mA and/or kV adjustment per patient size (includes targeted exams where dose is matched to clinical indication); or iterative reconstruction. COMPARISON: CT abdomen pelvis con [id number] 03/09/2024 11:27 AM RADIATION DOSE METRICS: Total DLP (mGy-cm): 696.03 FINDINGS: Heart: Mitral valve calcifications. Coronary arteries: Partially visualized coronary artery calcification of the RCA. Diaphragm: Hiatal hernia. Liver: Focal fatty infiltration at the falciform ligament. Gallbladder and biliary ducts: Normal. No calcified stones. No ductal dilation. Pancreas: Normal. No ductal dilation. Spleen: Normal. No splenomegaly. Adrenal glands: Thickening of the left adrenal gland. Kidneys: Bilateral perinephric fat stranding. Stomach and bowel: Colonic diverticulosis. Appendix: Normal appendix. Intraperitoneal space: Unremarkable. No free air. No significant fluid collection. Vasculature: Scattered atherosclerotic calcifications. No abdominal aortic aneurysm. Lymph nodes: Unremarkable. No enlarged lymph nodes. Bones/joints: Degenerative change. No acute fracture. No dislocation. Soft tissues: Unremarkable. CT/CT abdomen [facility] [id number] IMPRESSION: No acute abdominal abnormality.
--- NOTE | 2024-08-05 07:56 | W.ED.NAVMDI ---
Documented by User: Joann Escobar, [facility] 08/05/24 12:42 HPI - Nausea/Vomiting/Diarrhea General: Chief complaint: Nausea/Vomiting/Diarrhea Stated complaint: vomitting Time Seen by Provider: 08/05/24 07:32 History of Present Illness: Patient with past medical history of hypertension, hyperlipidemia, former tobacco use presenting today for 5 days of nausea and nonbloody vomiting and epigastric pain radiating to the right upper quadrant. He has not been able to take any of his medication for the last 3 days. His last known well was 5 days ago. Denies headache, blurry vision, gait issues, diarrhea. Associated nausea: Yes Associated symtoms: Reports chest pain, malaise and nausea; Denies change in vision, dizziness, headache(s) or palpitations Related Data Home Medications ?Medication ?Instructions ?Recorded ?Confirmed aripiprazole 20 mg tablet (Abilify) 20 mg PO DAILY 03/29/24 08/05/24 atorvastatin 10 mg tablet 10 mg PO DAILY 03/29/24 08/05/24 baclofen 10 mg tablet 10 mg PO TID PRN Pain 03/29/24 08/05/24 gabapentin 600 mg tablet 600 mg PO BID 03/29/24 08/05/24 hydroxyzine HCl 50 mg tablet 50 mg PO TID PRN Anxiety 03/29/24 08/05/24 lisinopril 10 mg tablet 10 mg PO DAILY 03/29/24 08/05/24 melatonin 5 mg capsule 5 mg PO BEDTIME PRN Sleep 03/29/24 08/05/24 prazosin 5 mg capsule 5 mg PO DAILY 03/29/24 08/05/24 sildenafil 100 mg tablet 100 mg PO DAILY PRN Sexual Activity 03/29/24 08/05/24 tamsulosin 0.4 mg capsule 0.4 mg PO DAILY 03/29/24 08/05/24 albuterol sulfate 90 mcg/actuation 2 puff inhalation Q4H PRN Wheezing 08/05/24 08/05/24 aerosol inhaler diltiazem HCl 180 mg 360 mg PO DAILY 08/05/24 08/05/24 capsule,extended release 24 hr omeprazole 40 mg capsule,delayed 40 mg PO QAM 08/05/24 08/05/24 release Previous Rx's ?Medication ?Instructions ?Recorded ondansetron 8 mg disintegrating 8 mg PO Q6H #14 tabs 06/23/24 tablet promethazine 25 mg rectal 25 mg [place] Q6H PRN nausea and 06/23/24 suppository vomiting #12 ea metoprolol succinate 25 mg 25 mg PO Q12H 30 days #60 tabs 08/10/24 tablet,extended release 24 hr Allergies Allergy/AdvReac Type Severity Reaction Status Date / Time clonazepam Allergy ADR-Irritab Verified 06/23/24 12:33 le Opioids - Morphine Analogues Allergy ADR-Nausea Verified 06/23/24 12:33 Review of Systems Const: Reports: malaise; Denies: fever(s) or chills Eyes: Denies: change in vision or blurry vision Card: Reports: chest pain and irregular heart rhythm; Denies: palpitations, dyspnea on exertion or orthopnea Resp: Denies: dyspnea GI: Reports: abdominal pain, nausea and vomiting; Denies: hematemesis Skin/Breast: Denies: rash Neuro: Denies: headache(s) or dizziness PFS ED PFSH: Medical History (Updated 08/16/24 @ 11:54 by Car Palma DO) Marijuana use Biliary dyskinesia GERD (gastroesophageal reflux disease) Hypertensive urgency A-fib BPH (benign prostatic hyperplasia) Hypertension Hyperlipidemia Surgical History (Updated 08/05/24 @ 17:21 by Jef Ngo MD) History of surgery on arm right arm -bicep Hx of colonoscopy 3 years ago- [place] History of hernia surgery 04/19/24 Open umbilical hernia repair using dura mesh- Dr Herrera Social History Smoking and tobacco/nicotine status: former use of tobacco/nicotine Alcohol intake: never Physical Exam Const: COMMON NORMALS: no acute distress and patient oriented x3 GENERAL APPEARANCE: cooperative and comfortable HENMT: COMMON NORMALS: normocephalic HEAD & SCALP: normocephalic Eye: COMMON NORMALS: EOMs intact bilaterally and conjunctivae normal CONJUNCTIVA: Yes conjunctivae normal Neck/C-Spine: COMMON NORMALS: no meningeal signs Resp: COMMON NORMALS: normal respiratory effort EFFORT & INSPECTION: Yes symmetric chest movement and No tachypneic Cardio: COMMON NORMALS: regular rate and No murmurs present (Cardio); negative for regular rhythm RATE: regular rate RHYTHM: abnormal rhythm GI: COMMON NORMALS: Soft to palpation PALPATION: Yes Soft to palpation and Yes Tenderness to palpation present (GI) (epigastric tenderness ) Extremity: COMMON NORMALS: normal to inspection Neuro: COMMON NORMALS: patient oriented x3 and CN's II-XII intact bilaterally MENINGEAL SIGNS: Yes no meningeal signs MOTOR EXAM: 5/5 motor strength present throughout and Pronator motor function not present Course Vital Signs: Vital signs: Vital Signs Temperature 98.2 F 08/10/24 13:32 Pulse Rate 71 08/10/24 13:32 Respiratory Rate 17 08/10/24 13:32 Blood Pressure 130/83 08/10/24 13:32 Pulse Oximetry 97 08/10/24 13:32 Oxygen Delivery Me thod Room Air 08/10/24 12:00 Oxygen Flow Rate 2 08/09/24 17:40 MDM - Nausea/Vomiting/Diarrhea Medical Decision Making Patient with past medical history of hypertension, hyperlipidemia, former tobacco use, and A-fib not on anticoagulation presenting today for 5 days of nonbloody vomiting and diffuse epigastric pain. Vitals significant for hypertension up to 212/116 (did not take home meds this morning), no tachycardia, otherwise unremarkable. Labs with no leukocytosis, no electrolyte abnormalities, LFTs and lipase were normal. Troponins mildly elevated but stable on 2-hour repeat, EKG unremarkable. Urinalysis unremarkable except for hyaline casts present, and ketones negative. He was given 1 L NS, Toradol 30 mg, pantoprazole 40 IV, Carafate, Haldol 5 mg x 2 doses, Ativan 2 mg x 2 doses, Zofran 8 mg. Given intractable vomiting patient discussed with on-call hospitalist for admission. Urine drug screen pending. Lab Data 08/10/24 04:53 08/10/24 04:[address] 08/05/24 07:50 IMPRESSION: No acute abdominal abnormality. Head CT 08/05/24 07:50 IMPRESSION: No acute intracranial abnormality. Head/Neck CTA 08/05/24 08:52 IMPRESSION: No large vessel stenosis or occlusion. IMPRESSION: No stenosis, dissection or occlusion. REFERENCES: NASCET CRITERIA. The degree of stenosis in the cervical segment of the internal carotid artery is based on NASCET criteria. Normal is no stenosis. Mild is less than 50% stenosis. Moderate is 50-69% stenosis. Severe is 70% to 99% stenosis. Total occlusion is no detectable patent lumen. Gallbladder Ultrasound 08/08/24 08:40 IMPRESSION: 1. No cholelithiasis or sonographic evidence of acute cholecystitis. Hepatobiliary Scan Nuclear Medicine 08/08/24 11:58 IMPRESSION: 1. Gallbladder fills normally with radionuclide but does not contract. 2. There is no gallbladder contraction. No significant amount of radionuclide identified in the small bowel at 60 minutes. Consider gallbladder dyskinesia and common bile duct stone. 3. No recent RIGHT upper quadrant ultrasound has been performed. Consider evaluation of the gallbladder and common bile duct by RIGHT upper quadrant ultrasound. Laboratory Results WBC 7.95 10^3/uL (3.29-11.43) 08/05/24 07:45 RBC 5.02 10^6/uL (3.85-5.65) 08/05/24 07:45 Hgb 15.00 g/dL (11.27-16.99) 08/05/24 07:45 Hct 43.8 % (37-53) 08/05/24 07:45 MCV 87.3 fl (82-101) 08/05/24 07:45 MCH 29.9 pg (27-33) 08/05/24 07:45 MCHC 34.2 g/dL (30-55) 08/05/24 07:45 RDW 12.4 % (12.1-15.1) 08/05/24 07:45 Plt Count 292 10^3/cmm (157-399) 08/05/24 07:45 MPV 11.2 fL (7.4-10.4) H 08/05/24 07:45 Neut % (Auto) 68.6 % 08/05/24 07:45 Lymph % (Auto) 20.9 % 08/05/24 07:45 [place] % (Auto) 8.8 % 08/05/24 07:45 Eos % (Auto) 0.6 % 08/05/24 07:45 Baso % (Auto) 0.8 % 08/05/24 07:45 Neut # (Auto) 5.46 10^3/uL (1.8-7.7) 08/05/24 07:45 Lymph # (Auto) 1.7 10^3/uL (0.8-4.8) 08/05/24 07:45 [place] # (Auto) 0.7 10^3/uL (0.2-0.9) 08/05/24 07:45 Eos # (Auto) 0.1 10^3/uL (0.0-0.8) 08/05/24 07:45 Baso # (Auto) 0.1 10^3/uL (0.0-0.1) 08/05/24 07:45 Nucleated RBC % (auto) 0 % 08/05/24 07:45 Nucleated RBCs # 0.0 /100WBC 08/05/24 07:45 D-Dimer 0.42 ug/mLFEU (0-0.59) 08/05/24 07:45 Sodium 139 mmol/L (136-145) 08/05/24 07:45 Potassium 3.5 mmol/L (3.5-5.1) 08/05/24 07:45 Chloride 101 mmol/L (98-107) 08/05/24 07:45 Carbon Dioxide 25 mmol/L (22-29) 08/05/24 07:45 Anion Gap 16.5 (5-19) 08/05/24 07:45 BUN 9 mg/dL (6-20) 08/05/24 07:45 Creatinine 1.1 mg/dL (0.7-1.2) 08/05/24 07:45 GFR Calculation 70.6 mL/min (90-130) L 08/05/24 07:45 Glucose 114 mg/dL (65-115) 08/05/24 07:45 POC Glucose 115 mg/dL (70-110) H 08/05/24 09:14 Estimat Average Glucose 114 08/05/24 07:45 Hemoglobin A1c 5.6 % (4.0-6.0) 08/05/24 07:45 Calculated Osmolality 288 mOsm/kg (285-295) 08/05/24 07:45 Lactic Acid 1.0 mmol/L (0.5-2.2) 08/05/24 14:05 Calcium 9.6 mg/dL (8.5-10.5) 08/05/24 07:45 Magnesium 2.0 mg/dL (1.7-2.3) 08/05/24 07:45 Iron 79 ug/dL (59-158) 08/05/24 09:41 TIBC 295 mcg/dl 08/05/24 09:41 % Saturation 26.7 % (20-50) 08/05/24 09:41 Unsat Iron Binding 216 ug/dL (112-347) 08/05/24 09:41 Total Bilirubin 0.8 mg/dL (0.15-1.2) 08/05/24 07:45 AST 29 U/L (0-40) 08/05/24 07:45 ALT 37 U/L (0-41) 08/05/24 07:45 Alkaline Phosphatase 65 U/L (40-130) 08/05/24 07:45 Troponin T Baseline 26 ng/L (0-15) H 08/05/24 07:45 Troponin T 120 Minute 22.69 ng/L (0-15) H 08/05/24 09:41 Delta Troponin T -3.31 ABS# (0-10) L 08/05/24 09:41 Troponin T Hi Sens 6Hr 20.43 ng/L (0-15) H 08/05/24 14:05 Troponin T Hi Sens 6Hr Delta -5.57 ng/L (0-12) L 08/05/24 14:05 Total Protein 7.3 g/dL (6.6-8.7) 08/05/24 07:45 Albumin 4.6 g/dL (3.5-5.2) 08/05/24 07:45 Globulin 2.7 g/dL (1.3-4.6) 08/05/24 07:45 Lipase 52 U/L (13-60) 08/05/24 07:45 Vitamin B12 1094 pg/mL (232-1245) 08/05/24 09:41 Procalcitonin 0.04 ng/mL (0-0.5) 08/05/24 09:41 TSH 1.10 uIU/mL (0.27-4.20) 08/05/24 09:41 Urine Color Yellow (Yellow) 08/05/24 12:18 Urine Appearance Clear (CLEAR) 08/05/24 12:18 Urine pH 8.5 (5-7) A 08/05/24 12:18 Ur Specific Carrier 1.067 (1.005-1.030) H 08/05/24 12:18 Urine Protein Trace (Negative) A 08/05/24 12:18 Urine Glucose (UA) Negative (Normal) 08/05/24 12:18 Urine Ketones Negative (Negative) 08/05/24 12:18 Urine Blood Negative (Negative) 08/05/24 12:18 Urine Nitrate Negative (Negative) 08/05/24 12:18 Urine Bilirubin Negative (Negative) 08/05/24 12:18 Urine Urobilinogen 1.0 mg/dL (Negative) 08/05/24 12:18 Ur Leukocyte Esterase Negative (Negative) 08/05/24 12:18 Urine RBC 0-2 /hpf (0-2) 08/05/24 12:18 Urine WBC 0-5 /hpf (0-5) 08/05/24 12:18 Ur Squamous Epith Cells 0-5 /hpf (0-5) 08/05/24 12:18 Amorphous Sediment Not Reportable 08/05/24 12:18 Urine Bacteria None seen /hpf (NONE) 08/05/24 12:18 Hyaline Casts 0-4 /lpf H 08/05/24 12:18 Urine Opiates Screen Negative ng/mL (Negative) 08/05/24 12:18 Ur Barbiturates Screen Negative ng/mL (Negative) 08/05/24 12:18 Ur Phencyclidine Scrn Negative ng/mL (Negative) 08/05/24 12:18 Ur Amphetamines Screen Negative ng/mL (Negative) 08/05/24 12:18 U Benzodiazepines Scrn Positive ng/mL (Negative) H 08/05/24 12:18 Urine Cocaine Screen Negative ng/mL (Negative) 08/05/24 12:18 U Marijuana (THC) Screen Positive ng/mL (Negative) H 08/05/24 12:18 Serum Ketones Negative (Negative) 08/05/24 07:45 Discharge Plan Discharge Patient Disposition: Admitted As Inpatient Admit Provider: Jef Ngo Clinical Impression: Gastroenteritis, Intractable nausea and vomiting, Abdominal pain, Chest pain Condition: Stable Discharge Diet: Advance as tolerated and GI Soft Discharge Activity: Resume usual activity and Increase activity as tolerated Coding Level of Care Code ED Cosmetic Surgeon for Chg Fwd Documented by User: Car Palma DO 08/16/24 11:54 HPI - Nausea/Vomiting/Diarrhea General: Chief complaint: Nausea/Vomiting/Diarrhea Stated complaint: vomitting Time Seen by Provider: 08/05/24 07:32 Related Data Home Medications ?Medication ?Instructions ?Recorded ?Confirmed aripiprazole 20 mg tablet (Abilify) 20 mg PO DAILY 03/29/24 08/05/24 atorvastatin 10 mg tablet 10 mg PO DAILY 03/29/24 08/05/24 baclofen 10 mg tablet 10 mg PO TID PRN Pain 03/29/24 08/05/24 gabapentin 600 mg tablet 600 mg PO BID 03/29/24 08/05/24 hydroxyzine HCl 50 mg tablet 50 mg PO TID PRN Anxiety 03/29/24 08/05/24 lisinopril 10 mg tablet 10 mg PO DAILY 03/29/24 08/05/24 melatonin 5 mg capsule 5 mg PO BEDTIME PRN Sleep 03/29/24 08/05/24 prazosin 5 mg capsule 5 mg PO DAILY 03/29/24 08/05/24 sildenafil 100 mg tablet 100 mg PO DAILY PRN Sexual Activity 03/29/24 08/05/24 tamsulosin 0.4 mg capsule 0.4 mg PO DAILY 03/29/24 08/05/24 albuterol sulfate 90 mcg/actuation 2 puff inhalation Q4H PRN Wheezing 08/05/24 08/05/24 aerosol inhaler diltiazem HCl 180 mg 360 mg PO DAILY 08/05/24 08/05/24 capsule,extended release 24 hr omeprazole 40 mg capsule,delayed 40 mg PO QAM 08/05/24 08/05/24 release Previous Rx's ?Medication ?Instructions ?Recorded ondansetron 8 mg disintegrating 8 mg PO Q6H #14 tabs 06/23/24 tablet promethazine 25 mg rectal 25 mg [place] Q6H PRN nausea and 06/23/24 suppository vomiting #12 ea metoprolol succinate 25 mg 25 mg PO Q12H 30 days #60 tabs 08/10/24 tablet,extended release 24 hr Allergies Allergy/AdvReac Type Severity Reaction Status Date / Time clonazepam Allergy ADR-Irritab Verified 06/23/24 12:33 le Opioids - Morphine Analogues Allergy ADR-Nausea Verified 06/23/24 12:33 [facility] ED PFSH: Medical History (Updated 08/16/24 @ 11:54 by Car Palma DO) Marijuana use Biliary dyskinesia GERD (gastroesophageal reflux disease) Hypertensive urgency A-fib BPH (benign prostatic hyperplasia) Hypertension Hyperlipidemia Surgical History (Updated 08/05/24 @ 17:21 by Jef Ngo MD) History of surgery on arm right arm -bicep Hx of colonoscopy 3 years ago- [place] History of hernia surgery 04/19/24 Open umbilical hernia repair using dura mesh- Dr Herrera Social History Smoking and tobacco/nicotine status: former use of tobacco/nicotine Alcohol intake: never Course Vital Signs: Vital signs: Vital Signs Temperature 98.2 F 08/10/24 13:32 Pulse Rate 71 08/10/24 13:32 Respiratory Rate 17 08/10/24 13:32 Blood Pressure 130/83 08/10/24 13:32 Pulse Oximetry 97 08/10/24 13:32 Oxygen Delivery Me thod Room Air 08/10/24 12:00 Oxygen Flow Rate 2 08/09/24 17:40 MDM - Nausea/Vomiting/Diarrhea Medical Decision Making Patient with past medical history of hypertension, hyperlipidemia, former tobacco use, and A-fib not on anticoagulation presenting today for 5 days of nonbloody vomiting and diffuse epigastric pain. Vitals significant for hypertension up to 212/116 (did not take home meds this morning), no tachycardia, otherwise unremarkable. Labs with no leukocytosis, no electrolyte abnormalities, LFTs and lipase were normal. Troponins mildly elevated but stable on 2-hour repeat, EKG unremarkable. Urinalysis unremarkable except for hyaline casts present, and ketones negative. He was given 1 L NS, Toradol 30 mg, pantoprazole 40 IV, Carafate, Haldol 5 mg x 2 doses, Ativan 2 mg x 2 doses, Zofran 8 mg. Given intractable vomiting patient discussed with on-call hospitalist for admission. Urine drug screen pending. Patient seen and evaluated in conjunction with Dr. Escobar. Agree with history assessment and plan. Medical Records I reviewed the patient's medical records. Lab Data I reviewed the patient's lab results. 08/10/24 04:53 08/10/24 04:[address] 08/05/24 07:50 IMPRESSION: No acute abdominal abnormality. Head CT 08/05/24 07:50 IMPRESSION: No acute intracranial abnormality. Head/Neck CTA 08/05/24 08:52 IMPRESSION: No large vessel stenosis or occlusion. IMPRESSION: No stenosis, dissection or occlusion. REFERENCES: NASCET CRITERIA. The degree of stenosis in the cervical segment of the internal carotid artery is based on NASCET criteria. Normal is no stenosis. Mild is less than 50% stenosis. Moderate is 50-69% stenosis. Severe is 70% to 99% stenosis. Total occlusion is no detectable patent lumen. Gallbladder Ultrasound 08/08/24 08:40 IMPRESSION: 1. No cholelithiasis or sonographic evidence of acute cholecystitis. Hepatobiliary Scan Nuclear Medicine 08/08/24 11:58 IMPRESSION: 1. Gallbladder fills normally with radionuclide but does not contract. 2. There is no gallbladder contraction. No significant amount of radionuclide identified in the small bowel at 60 minutes. Consider gallbladder dyskinesia and common bile duct stone. 3. No recent RIGHT upper quadrant ultrasound has been performed. Consider evaluation of the gallbladder and common bile duct by RIGHT upper quadrant ultrasound. Laboratory Results WBC 7.95 10^3/uL (3.29-11.43) 08/05/24 07:45 RBC 5.02 10^6/uL (3.85-5.65) 08/05/24 07:45 Hgb 15.00 g/dL (11.27-16.99) 08/05/24 07:45 Hct 43.8 % (37-53) 08/05/24 07:45 MCV 87.3 fl (82-101) 08/05/24 07:45 MCH 29.9 pg (27-33) 08/05/24 07:45 MCHC 34.2 g/dL (30-55) 08/05/24 07:45 RDW 12.4 % (12.1-15.1) 08/05/24 07:45 Plt Count 292 10^3/cmm (157-399) 08/05/24 07:45 MPV 11.2 fL (7.4-10.4) H 08/05/24 07:45 Neut % (Auto) 68.6 % 08/05/24 07:45 Lymph % (Auto) 20.9 % 08/05/24 07:45 [place] % (Auto) 8.8 % 08/05/24 07:45 Eos % (Auto) 0.6 % 08/05/24 07:45 Baso % (Auto) 0.8 % 08/05/24 07:45 Neut # (Auto) 5.46 10^3/uL (1.8-7.7) 08/05/24 07:45 Lymph # (Auto) 1.7 10^3/uL (0.8-4.8) 08/05/24 07:45 [place] # (Auto) 0.7 10^3/uL (0.2-0.9) 08/05/24 07:45 Eos # (Auto) 0.1 10^3/uL (0.0-0.8) 08/05/24 07:45 Baso # (Auto) 0.1 10^3/uL (0.0-0.1) 08/05/24 07:45 Nucleated RBC % (auto) 0 % 08/05/24 07:45 Nucleated RBCs # 0.0 /100WBC 08/05/24 07:45 D-Dimer 0.42 ug/mLFEU (0-0.59) 08/05/24 07:45 Sodium 139 mmol/L (136-145) 08/05/24 07:45 Potassium 3.5 mmol/L (3.5-5.1) 08/05/24 07:45 Chloride 101 mmol/L (98-107) 08/05/24 07:45 Carbon Dioxide 25 mmol/L (22-29) 08/05/24 07:45 Anion Gap 16.5 (5-19) 08/05/24 07:45 BUN 9 mg/dL (6-20) 08/05/24 07:45 Creatinine 1.1 mg/dL (0.7-1.2) 08/05/24 07:45 GFR Calculation 70.6 mL/min (90-130) L 08/05/24 07:45 Glucose 114 mg/dL (65-115) 08/05/24 07:45 POC Glucose 115 mg/dL (70-110) H 08/05/24 09:14 Estimat Average Glucose 114 08/05/24 07:45 Hemoglobin A1c 5.6 % (4.0-6.0) 08/05/24 07:45 Calculated Osmolality 288 mOsm/kg (285-295) 08/05/24 07:45 Lactic Acid 1.0 mmol/L (0.5-2.2) 08/05/24 14:05 Calcium 9.6 mg/dL (8.5-10.5) 08/05/24 07:45 Magnesium 2.0 mg/dL (1.7-2.3) 08/05/24 07:45 Iron 79 ug/dL (59-158) 08/05/24 09:41 TIBC 295 mcg/dl 08/05/24 09:41 % Saturation 26.7 % (20-50) 08/05/24 09:41 Unsat Iron Binding 216 ug/dL (112-347) 08/05/24 09:41 Total Bilirubin 0.8 mg/dL (0.15-1.2) 08/05/24 07:45 AST 29 U/L (0-40) 08/05/24 07:45 ALT 37 U/L (0-41) 08/05/24 07:45 Alkaline Phosphatase 65 U/L (40-130) 08/05/24 07:45 Troponin T Baseline 26 ng/L (0-15) H 08/05/24 07:45 Troponin T 120 Minute 22.69 ng/L (0-15) H 08/05/24 09:41 Delta Troponin T -3.31 ABS# (0-10) L 08/05/24 09:41 Troponin T Hi Sens 6Hr 20.43 ng/L (0-15) H 08/05/24 14:05 Troponin T Hi Sens 6Hr Delta -5.57 ng/L (0-12) L 08/05/24 14:05 Total Protein 7.3 g/dL (6.6-8.7) 08/05/24 07:45 Albumin 4.6 g/dL (3.5-5.2) 08/05/24 07:45 Globulin 2.7 g/dL (1.3-4.6) 08/05/24 07:45 Lipase 52 U/L (13-60) 08/05/24 07:45 Vitamin B12 1094 pg/mL (232-1245) 08/05/24 09:41 Procalcitonin 0.04 ng/mL (0-0.5) 08/05/24 09:41 TSH 1.10 uIU/mL (0.27-4.20) 08/05/24 09:41 Urine Color Yellow (Yellow) 08/05/24 12:18 Urine Appearance Clear (CLEAR) 08/05/24 12:18 Urine pH 8.5 (5-7) A 08/05/24 12:18 Ur Specific Carrier 1.067 (1.005-1.030) H 08/05/24 12:18 Urine Protein Trace (Negative) A 08/05/24 12:18 Urine Glucose (UA) Negative (Normal) 08/05/24 12:18 Urine Ketones Negative (Negative) 08/05/24 12:18 Urine Blood Negative (Negative) 08/05/24 12:18 Urine Nitrate Negative (Negative) 08/05/24 12:18 Urine Bilirubin Negative (Negative) 08/05/24 12:18 Urine Urobilinogen 1.0 mg/dL (Negative) 08/05/24 12:18 Ur Leukocyte Esterase Negative (Negative) 08/05/24 12:18 Urine RBC 0-2 /hpf (0-2) 08/05/24 12:18 Urine WBC 0-5 /hpf (0-5) 08/05/24 12:18 Ur Squamous Epith Cells 0-5 /hpf (0-5) 08/05/24 12:18 Amorphous Sediment Not Reportable 08/05/24 12:18 Urine Bacteria None seen /hpf (NONE) 08/05/24 12:18 Hyaline Casts 0-4 /lpf H 08/05/24 12:18 Urine Opiates Screen Negative ng/mL (Negative) 08/05/24 12:18 Ur Barbiturates Screen Negative ng/mL (Negative) 08/05/24 12:18 Ur Phencyclidine Scrn Negative ng/mL (Negative) 08/05/24 12:18 Ur Amphetamines Screen Negative ng/mL (Negative) 08/05/24 12:18 U Benzodiazepines Scrn Positive ng/mL (Negative) H 08/05/24 12:18 Urine Cocaine Screen Negative ng/mL (Negative) 08/05/24 12:18 U Marijuana (THC) Screen Positive ng/mL (Negative) H 08/05/24 12:18 Serum Ketones Negative (Negative) 08/05/24 07:45 All radiology interpretation(s) finalized by discharge Discharge Plan Discharge Patient Disposition: Admitted As Inpatient Admit Provider: Jef Ngo Clinical Impression: Gastroenteritis, Intractable nausea and vomiting, Abdominal pain, Chest pain Condition: Stable Discharge Diet: Advance as tolerated and GI Soft Discharge Activity: Resume usual activity and Increase activity as tolerated Coding Level of Care Code ED Cosmetic Surgeon for Leonid Alva
[2024-08-05] MEDS: hyDRALAzine 20 mg/mL INJ 1 mL 10 MG IVP (07:58)
[2024-08-05] MEDS: labetalol 5 mg/mL SDV 20mL 10 MG IVP (07:58)
[2024-08-05 08:09] LABS: Alanine Aminotransferase 37 U/L (0-41); Albumin Level 4.6 g/dL (3.5-5.2); Alkaline Phosphatase 65 U/L (40-130); Anion Gap 16.5 (5-19); Aspartate Amino Transferase 29 U/L (0-40); Blood Urea Nitrogen 9 mg/dL (6-20); Calcium 9.6 mg/dL (8.5-10.5); Carbon Dioxide 25 mmol/L (22-29); Chloride 101 mmol/L (98-107); Creatinine Clr Calc Pharmacy 74.6625; Globulin 2.7 g/dL (1.3-4.6); Glomerular Filtration Rate 70.6 mL/min (90-130); Glucose 114 mg/dL (65-115); Lipase 52 U/L (13-60); Osmolality Calculated 288 mOsm/kg (285-295); Potassium 3.5 mmol/L (3.5-5.1); Sodium 139 mmol/L (136-145); Total Bilirubin 0.8 mg/dL (0.15-1.2); Total Protein 7.3 g/dL (6.6-8.7)
[2024-08-05 08:14] LABS: Troponin(5th) Baseline 26 ng/L (0-15)
--- NOTE | 2024-08-05 08:52 | CTR_ITS ---
PROCEDURE INFORMATION: Exam: CTA Head With Contrast, Arteriography Exam date and time: 08/05/2024 9:52 AM Age: 53 years old Clinical indication: Other: Vomiting; Additional info: Severe vomiting, HX of afib not anticoag TECHNIQUE: Imaging protocol: Computed tomographic angiography of the head with contrast. Exam focused on the arteries. 3D rendering (Not supervised by radiologist): MIP and/or 3D reconstructed images were created by the technologist. Radiation optimization: All CT scans at this facility use at least one of these dose optimization techniques: automated exposure control; mA and/or kV adjustment per patient size (includes targeted exams where dose is matched to clinical indication); or iterative reconstruction. Contrast material: OMNIPAQUE 350; Contrast volume: 100 ml; Contrast route: INTRAVENOUS (IV); COMPARISON: CT head wo con* [id number] 08/05/2024 8:11 AM RADIATION DOSE METRICS: Total DLP (mGy-cm): 537.57 FINDINGS: ANTERIOR CIRCULATION: Right internal carotid artery: Intracranial segment is patent with no significant stenosis. No aneurysm. Right middle cerebral artery: No occlusion or significant stenosis. No aneurysm. Right anterior cerebral artery: No occlusion or significant stenosis. No aneurysm. Left internal carotid artery: Intracranial segment is patent with no significant stenosis. No aneurysm. Left middle cerebral artery: No occlusion or significant stenosis. No aneurysm. Left anterior cerebral artery: No occlusion or significant stenosis. No aneurysm. POSTERIOR CIRCULATION: Right vertebral artery: No occlusion or significant stenosis. No aneurysm. Left vertebral artery: No occlusion or significant stenosis. No aneurysm. Basilar artery: No occlusion or significant stenosis. No aneurysm. Right posterior cerebral artery: No occlusion or significant stenosis. No aneurysm. Left posterior cerebral artery: No occlusion or significant stenosis. No aneurysm. Left PCOM. Brain: No definite mass, mass effect, or midline shift. Cerebral ventricles: No ventriculomegaly. Paranasal sinuses: Left maxillary mucous retention cyst. Bones/joints: Unremarkable. No acute fracture. Soft tissues: Unremarkable. PROCEDURE INFORMATION: Exam: CTA Neck With Contrast Exam date and time: 08/05/2024 9:52 AM Age: 53 years old Clinical indication: Other: Vomiting; Additional info: Severe vomiting, HX of afib not anticoag TECHNIQUE: Imaging protocol: Computed tomographic angiography of the neck with contrast. Exam focused on the cervical segments of the vasculature. 3D rendering (Not supervised by radiologist): MIP and/or 3D reconstructed images were created by the technologist. Radiation optimization: All CT scans at this facility use at least one of these dose optimization techniques: automated exposure control; mA and/or kV adjustment per patient size (includes targeted exams where dose is matched to clinical indication); or iterative reconstruction. Contrast material: OMNIPAQUE 350; Contrast volume: 100 ml; Contrast route: INTRAVENOUS (IV); COMPARISON: CT head wo con* [id number] 08/05/2024 8:11 AM RADIATION DOSE METRICS: Total DLP (mGy-cm): 537.57 FINDINGS: Right common carotid artery: No stenosis. No dissection or occlusion. Right internal carotid artery: No stenosis of the extracranial segment. No dissection or occlusion. Right external carotid artery: No occlusion or stenosis of the origin. Left common carotid artery: No stenosis. No dissection or occlusion. Left internal carotid artery: No stenosis of the extracranial segment. No dissection or occlusion. Left external carotid artery: No occlusion or stenosis of the origin. Right vertebral artery: No stenosis. No dissection or occlusion. Left vertebral artery: No stenosis. No dissection or occlusion. Soft tissues: Normal. No significant soft tissue swelling. Bones/joints: No acute fracture. Lungs: Bilateral lung apices are grossly unremarkable. CT/CT angio headneck* [id number] IMPRESSION: No large vessel stenosis or occlusion. IMPRESSION: No stenosis, dissection or occlusion. REFERENCES: NASCET CRITERIA. The degree of stenosis in the cervical segment of the internal carotid artery is based on NASCET criteria. Normal is no stenosis. Mild is less than 50% stenosis. Moderate is 50-69% stenosis. Severe is 70% to 99% stenosis. Total occlusion is no detectable patent lumen.
[2024-08-05] MEDS: ondansetron 2 mg/ML SDV 2 mL 8 MG IVP (08:55)
[2024-08-05] MEDS: sucralfate 1 gm Tablet PO (09:06)
[2024-08-05] MEDS: pantoprazole 40 mg SDV IVP ×2 (09:06→17:01)
[2024-08-05 09:16] LABS: Glucose Point of Care 115 mg/dL (70-110)
[2024-08-05] MEDS: LORazepam 2 mg/mL INJ 1 mL IVP (09:41)
[2024-08-05] MEDS: haloperidol inj 5 mg/mL INJ 1 mL IVP ×2 (09:41→11:47)
[2024-08-05] MEDS: ketorolac 30 mg/mL INJ IVP (09:41)
[2024-08-05 09:45] VITALS: BP 161/89; PULSE 87; O2SAT 98
[2024-08-05] MEDS: iohexol 350 mg/mL 500 mL Btl (per mL) IV (09:58)
[2024-08-05 10:01] LABS: Troponin 5 2HR 22.69 ng/L (0-15)
[2024-08-05 10:02] LABS: Troponin 5 2HR Delta -3.31 ABS# (0-10)
--- NOTE | 2024-08-05 10:36 | PC.PHAR ---
Pt is [facility]. Pt does know his medications. Pt states is out of all of his nausea meds.
--- NOTE | 2024-08-05 10:49 | ECG_ITS ---
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 Measurements Intervals [place] Rate: 97 P: 63 AK: 133 QRS: 59 QRSD: 89 T: 72 QT: 357 QTc: 455 Interpretive Statements SINUS RHYTHM WITH FREQUENT SUPRAVENTRICULAR PREMATURE COMPLEXES POSSIBLE INFERIOR MYOCARDIAL INFARCTION , PROBABLY OLD [30 ms Q WAVE IN II/aVF] Compared to ECG 08/05/2024 07:46:23 Myocardial infarct finding now present Electronically Signed On 08-05-2024 23:22:40 MANAGER CLEANING by Markell Martin M.D. [id number]
[2024-08-05 11:15] LABS: Ketone (Acetest) Serum Negative (Negative)
[2024-08-05] MEDS: sodium chloride 0.9% 1,000 ML 999 ML IV (11:47)
[2024-08-05 12:09] VITALS: BP 161/91; PULSE 95; RESP 18; O2SAT 96
--- NOTE | 2024-08-05 12:21 | PC.NURSE ---
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
[2024-08-05 12:29] LABS: Bilirubin Urine Negative (Negative); Blood Urine Negative (Negative); Glucose Urine UA Negative (Normal); Ketones Urine Negative (Negative); Leukocyte Esterase Urine Negative (Negative); Nitrate Urine Negative (Negative); Protein Urine Trace (Negative); Urine Appearance Clear (CLEAR); Urine Color Yellow (Yellow); pH Urine 8.5 (5-7)
[2024-08-05 12:31] LABS: Add Urine Microscopic? YES; Bacteria Urine None Seen /hpf; Hyaline Casts Urine 0-4 /lpf; RBC Urine 0-2 /hpf (0-2); Squamous Epithelial Cell Urine 0-5 /hpf (0-5); WBC Urine 0-5 /hpf (0-5)
[2024-08-05 12:33] LABS: Specific Gravity, Urine 1.067 (1.005-1.030)
[2024-08-05 12:36] LABS: Amphetamines Screen Urine Negative (Negative); Barbiturates Screen Urine Negative (Negative); Benzodiazepines Screen Urine Positive (Negative); Cocaine Screen Urine Negative (Negative); Opiate Screen Urine Negative (Negative); PCP Screen Urine Negative (Negative); THC Screen Urine Positive (Negative)
--- NOTE | 2024-08-05 12:49 | PM.HP ---
Providers/Chief Complaint Chief Complaint: vomitting History of Present Illness Carlos Alberto Uriarte is a 53 year old male with past medical history of hypertension, recent history of atrial fibrillation, BPH presents to the ER today because of persistent nausea and vomiting since Wednesday. Today is Wednesday. Patient states he has been extremely poor and limited. He has not been able to take his oral medications for the last 48 hours. In the ER he has required multiple medications including Haldol and Ativan for nausea and vomiting. On examination patient looks mildly distressed because of nausea but no vomiting. States he has been having occasional epigastric pain. Denies any diarrhea, headache, dizziness. Review of Systems General: Reports: 10 or more systems reviewed and unremarkable except in HPI and below Const: Denies: fever(s), chills, body aches, change in appetite, change in weight, malaise, night sweats, diaphoresis, change in sleep pattern, daytime sleepiness or snoring Eyes: Denies: change in vision, blurry vision, photophobia, eye discomfort or eye discharge ENMT: Denies: throat pain, enlarged tonsils, hoarseness, mouth pain, oral sores, dry mouth, tinnitus, nasal congestion or post nasal drip Card: Denies: chest pain, palpitations, irregular heart rhythm, edema, swelling of feet/ankles, lightheadedness, syncope, pre-syncope, dyspnea on exertion, orthopnea, leg pain with exertion or acrocyanosis Resp: Denies: dyspnea, productive cough, non-productive cough, wheezing, stridor, pain on inspiration, change in phlegm color, hemoptysis or chest congestion GI: Denies: abdominal pain, nausea, vomiting, hematemesis, coffee ground emesis, dysphagia, heartburn, diarrhea, constipation, bloating, GI cramping, change in bowel habits, pain on defecation, hematochezia or melena : Denies: flank pain, difficulty urinating, dysuria, urinary frequency, urinary urgency, urinary hesitancy, urinary dribbling, difficulty starting urination, change in urine stream, nocturia or hematuria Musc: Denies: neck pain, back pain, extremity pain, joint pain, joint swelling, joint redness, joint stiffness or limited range of motion Neuro: Denies: headache(s), numbness in extremities, weakness in extremities, sensory changes, lack of coordination, difficulty walking, frequent falls, dizziness, vertigo, confusion, Slurred speech present, difficulty communicating thoughts or seizure-like activity Psych: Denies: anxiety, depression, mood swings, panic attacks, hopelessness or irritability Endo: Denies: polyuria, polydipsia, tired all the time, cold intolerance, excessive sweating, flushing or heat intolerance Kevin/Lymph: Denies: easy bruising or easy bleeding All/Imm: Denies: tongue swelling, facial swelling or acute wheezing Medications/Allergies Home Medications Medication Instructions Recorded Confirmed Last Taken Type aripiprazole 20 mg tablet (Abilify) 20 mg PO DAILY 03/29/24 08/05/24 08/02/24 History atorvastatin 10 mg tablet 10 mg PO DAILY 03/29/24 08/05/24 08/02/24 History baclofen 10 mg tablet 10 mg PO TID PRN Pain 03/29/24 08/05/24 Unknown History gabapentin 600 mg tablet 600 mg PO BID 03/29/24 08/05/24 08/02/24 History hydroxyzine HCl 50 mg tablet 50 mg PO TID PRN Anxiety 03/29/24 08/05/24 08/02/24 History lisinopril 10 mg tablet 10 mg PO DAILY 03/29/24 08/05/24 08/02/24 History melatonin 5 mg capsule 5 mg PO BEDTIME PRN Sleep 03/29/24 08/05/24 08/02/24 History prazosin 5 mg capsule 5 mg PO DAILY 03/29/24 08/05/24 08/02/24 History sildenafil 100 mg tablet 100 mg PO DAILY PRN Sexual Activity 03/29/24 08/05/24 04/18/24 10:00 History tamsulosin 0.4 mg capsule 0.4 mg PO DAILY 03/29/24 08/05/24 08/02/24 History ondansetron 8 mg disintegrating 8 mg PO Q6H #14 tabs 06/23/24 08/05/24 Unknown Rx tablet promethazine 25 mg rectal 25 mg [place] Q6H PRN nausea and 06/23/24 08/05/24 Unknown Rx suppository vomiting #12 ea albuterol sulfate 90 mcg/actuation 2 puff inhalation Q4H PRN Wheezing 08/05/24 08/05/24 Unknown History aerosol inhaler diltiazem HCl 180 mg 360 mg PO DAILY 08/05/24 08/05/24 08/02/24 History capsule,extended release 24 hr omeprazole 40 mg capsule,delayed 40 mg PO QAM 08/05/24 08/05/24 08/02/24 History release Allergies Allergy/AdvReac Type Severity Reaction Status Date / Time clonazepam Allergy ADR-Irritab Verified 06/23/24 12:33 le Opioids - Morphine Analogues Allergy ADR-Nausea Verified 06/23/24 12:33 PFSH Acute PFSH: Medical History (Updated 08/05/24 @ 17:21 by Jef Ngo MD) A-fib BPH (benign prostatic hyperplasia) Hypertension Hyperlipidemia Surgical History (Updated 08/05/24 @ 17:21 by Jef Ngo MD) History of surgery on arm right arm -bicep Hx of colonoscopy 3 years ago- [place] History of hernia surgery 04/19/24 Open umbilical hernia repair using dura mesh- Dr Herrera Social History Smoking and tobacco/nicotine status: former use of tobacco/nicotine Alcohol intake: never Vitals/I&O/Wt Last Vital Signs Temp 98.5 F 08/05/24 07:34 Pulse 95 08/05/24 12:09 Resp 18 08/05/24 12:09 BP 161/91 08/05/24 12:09 Pulse Ox 96 08/05/24 12:09 O2 Del Method Room Air 08/05/24 07:34 Weight last 48 hrs Weight 63.503 kg Data 08/05/24 07:45 08/05/24 07:45 A&P Assessment and plan (1) Nausea and vomiting: Unable to keep medications down. Poor oral intake. CT abdomen pelvis done in the ER Negative for acute pathology. No pancreatitis. No concerns for gallbladder stones. No concerns for small bowel obstruction. CTA head and neck done negative for acute abnormality. Start on IV fluids with D5 NS at 75 cc/h. Protonix twice daily, Zofran and promethazine as needed. Check stool studies. Clear liquid diet. Will encourage patient for multiple small meals if possible. (2) Hypertensive urgency: Most likely in setting of not to take his oral medications. Received hydralazine in ER. Restart oral lisinopril 10 mg daily as possible. Change Cardizem to 90 mg Q6 hourly. IV hydralazine 10 mg every 4 hours as needed for systolic blood pressure more than 160 mmHg as needed. Goal blood pressure less than 140/90 mmHg. (3) A-fib: Currently rate controlled. 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 (4) Hypertension: (5) Hyperlipidemia: Plan Full code Clear liquid diet Protonix OPD prophylaxis Low concerns for VTE. Attestations Medical Necessity Statement*: Admission under observation for management of extensive nausea and vomiting, poor oral intake, unable to take oral medications leading to hypertensive urgency Diagnoses Nausea and vomiting R11.2 Hypertensive urgency I16.0 A-fib I48.91 Hypertension I10 Hyperlipidemia E78.5
[2024-08-05 13:05] LABS: D Dimer 0.42 ug/mLFEU (0-0.59)
[2024-08-05 13:16] LABS: Procalcitonin 0.04 ng/mL (0-0.5)
--- NOTE | 2024-08-05 13:49 | ECG_ITS ---
[employer] 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 Measurements Intervals [place] Rate: 91 P: 70 CA: 132 QRS: 67 QRSD: 85 T: 62 QT: 366 QTc: 451 Interpretive Statements SINUS RHYTHM WITH OCCASIONAL ECTOPIC PREMATURE COMPLEXES NONSPECIFIC T-WAVE ABNORMALITY Compared to ECG 08/05/2024 10:49:42 T-wave abnormality now present Myocardial infarct finding no longer present Electronically Signed On 08-05-2024 23:21:37 CAN INTAKE WORKER by Markell Martin M.D. [id number]
[2024-08-05 14:34] LABS: Troponin 5 6HR 20.43 ng/L (0-15)
[2024-08-05 14:35] LABS: Troponin 5 6HR Delta -5.57 ng/L (0-12)
[2024-08-05 14:40] VITALS: BP 171/100; PULSE 82; RESP 27; O2SAT 97
[2024-08-05 16:05] VITALS: BP 152/90; PULSE 90; RESP 15; TEMP 36.9; O2SAT 97
[2024-08-05 16:38] LABS: Estmated Average Glucose 114; Hemoglobin A1C 5.6 % (4.0-6.0)
[2024-08-05 16:44] VITALS: BMI 36.5
[2024-08-05 16:46] LABS: Iron 79 ug/dL (59-158); Percent Saturation 26.7 % (20-50); Total Iron Binding Capacity 295 mcg/dl; Unsaturated Iron Binding 216 ug/dL (112-347); Vitamin B12 1094 pg/mL (232-1245)
[2024-08-05 16:56] LABS: Glucose Point of Care 103 mg/dL (70-110)
[2024-08-05] MEDS: dextrose 5%-sod chloride 0.9% 1,000 ML 75 ML IV (17:01)
[2024-08-05 19:56] VITALS: BP 122/80; PULSE 85; RESP 17; TEMP 37.2; O2SAT 96
[2024-08-05] MEDS: dilTIAZem 60 mg Tablet 90 MG PO (22:27)
[2024-08-06] VITALS (9 sets, daily range): BP systolic 105–173; BP diastolic 61–93; PULSE 50–84; RESP 16–19; TEMP 36.4–36.8; O2SAT 95–97
[2024-08-06] MEDS: pantoprazole 40 mg SDV IVP ×2 (04:16→18:26)
[2024-08-06] MEDS: dilTIAZem 60 mg Tablet 90 MG PO ×4 (04:16→23:13)
[2024-08-06 04:39] LABS: Basophils # 0.1 10^3/uL (0.0-0.1); Basophils % 0.7 %; Eosinophils # 0.1 10^3/uL (0.0-0.8); Eosinophils % 0.8 %; Hematocrit 41.8 % (37-53); Lymphocytes # 2.1 10^3/uL (0.8-4.8); Mean Corpuscular HGB Conc 32.8 g/dL (30-55); Mean Corpuscular Hemoglobin 29.8 pg (27-33); Mean Corpuscular Volume 90.9 fl (82-101); Mean Platelet Volume 11.8 fL (7.4-10.4); Monocytes # 0.8 10^3/uL (0.2-0.9); Monocytes % 9.2 %; Neutrophils # 5.69 10^3/uL (1.8-7.7); Neutrophils % 64.8 %; Nucleated Red Blood Cells % 0 %; Platelet Count 271 10^3/cmm (157-399); Red Cell Distribution Width 12.5 % (12.1-15.1); White Blood Count 8.78 10^3/uL (3.29-11.43)
[2024-08-06 05:15] LABS: Alanine Aminotransferase 27 U/L (0-41); Albumin Level 3.8 g/dL (3.5-5.2); Alkaline Phosphatase 53 U/L (40-130); Anion Gap 15.4 (5-19); Aspartate Amino Transferase 18 U/L (0-40); Blood Urea Nitrogen 9 mg/dL (6-20); Calcium 8.9 mg/dL (8.5-10.5); Carbon Dioxide 22 mmol/L (22-29); Chloride 106 mmol/L (98-107); Creatinine Clr Calc Pharmacy 114.7034; Globulin 2.3 g/dL (1.3-4.6); Glucose 97 mg/dL (65-115); Magnesium 2.3 mg/dL (1.7-2.3); Osmolality Calculated 289 mOsm/kg (285-295); Phosphorus 3.8 mg/dL (2.5-4.5); Potassium 3.4 mmol/L (3.5-5.1); Sodium 140 mmol/L (136-145); Total Bilirubin 0.7 mg/dL (0.15-1.2); Total Protein 6.1 g/dL (6.6-8.7)
[2024-08-06 05:16] LABS: Chol HDL Ratio 4.61 mg/dL (1.0-5.00); Cholesterol 166 mg/dL (0-200); HDL Cholesterol 36 mg/dL (60-100); LDL Cholesterol Calculated 103 mg/dL (50-129); LDL HDL Ratio 2.86 RATIO (0.00-3.22); Procalcitonin 0.05 ng/mL (0-0.5); Triglycerides 137 mg/dL (0-150)
[2024-08-06 05:24] LABS: Folate Level 9.4 ng/mL (4.5-32.2)
[2024-08-06] MEDS: dextrose 5%-sod chloride 0.9% 1,000 ML 75 ML IV ×2 (06:02→18:26)
[2024-08-06] MEDS: ondansetron 2 mg/ML SDV 2 mL 4 MG IVP ×3 (09:11→23:16)
[2024-08-06] MEDS: ketorolac 30 mg/mL INJ IVP (09:11)
[2024-08-06] MEDS: baclofen 10 mg Tablet PO ×2 (09:16→18:26)
[2024-08-06] MEDS: tamsulosin 0.4 mg Capsule PO (09:16)
[2024-08-06] MEDS: lisinopril 10 mg Tablet PO (09:16)
[2024-08-06] MEDS: gabapentin 300 mg Capsule 600 MG PO ×2 (09:17→18:26)
[2024-08-06] MEDS: prazosin 5 mg Capsule PO (09:17)
[2024-08-06] MEDS: promethazine 25 mg/mL SDV 1 mL 12.5 MG IM (12:05)
--- NOTE | 2024-08-06 14:25 | P.PN_ITS ---
Subjective 2 Subjective: No acute events overnight. Able to tolerate liquids now. Still not able to tolerate broth. Complaining of nausea. Complaining of epigastric pain. Denies any headache or dizziness. Blood pressure is better controlled. Vitals/I&O/Wt Last Vital Signs Temp 97.8 F 08/06/24 12:00 Pulse 72 08/06/24 12:00 Resp 17 08/06/24 12:00 BP 173/93 08/06/24 12:00 Pulse Ox 95 08/06/24 12:00 O2 Del Method Room Air 08/06/24 12:00 08/05/24 08/06/24 08/06/24 22:59 06:59 14:59 Intake Total 1000 / 1000 1096.25 / 2096.25 480 / 480 Balance 1000 / 1000 1096.25 / 2095. 480 / 480 Weight last 48 hrs Weight 106.186 kg Weight 108.998 kg Weight 63.503 kg Physical Exam 2 Narrative: General: No acute distress, AO x3 HEENT: PERRLA, pupils bilaterally equal and reactive Chest: Normal vesicular breath sounds, no added sounds, equal good air entry bilaterally CVS: S1-S2 regular, no murmurs, no tachycardia, no gallops, no rubs Abdomen: Soft, nontender, no organomegaly, bowel sounds present Neuro: No focal deficits, no facial deformity, AO x3, power 5/5 in all limbs Data 08/06/24 02:38 08/06/24 02:38 Micro: Microbiology 08/05/24 12:48 Bacterial Antigens - Final Urine Kidney A&P Assessment and plan (1) Nausea and vomiting: Doing slightly better today. Still having nausea and vomiting with broth. Able to take oral medications today. CT abdomen pelvis done in the ER Negative for acute pathology. No pancreatitis. No concerns for gallbladder stones. No concerns for small bowel obstruction. CTA head and neck done negative for acute abnormality. Urine drug screen positive for marijuana. High concerns for nausea and vomiting in setting of marijuana. Continue with IV fluids with D5 NS at 75 cc/h. Protonix twice daily, Zofran and promethazine as needed. Check stool studies. Clear liquid diet. Counseled and encouraged patient for multiple small meals if possible. (2) Hypertensive urgency: Most likely in setting of not to take his oral medications. Received hydralazine in ER. Continue with oral lisinopril 10 mg daily as possible, Cardizem to 90 mg Q6 hourly. Uptitrate as for goal blood pressures of less than 140/90 mmHg. IV hydralazine 10 mg every 4 hours as needed for systolic blood pressure more than 160 mmHg as needed. (3) A-fib: Currently rate controlled. 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 (4) Hypertension: (5) Hyperlipidemia: Plan Full code Clear liquid diet Protonix OPD prophylaxis Low concerns for VTE. Attestations 2 Medical Necessity Statement*: Requires further hospitalization for management of nausea and vomiting most likely in setting of marijuana, uncontrolled hypertension in a patient who is not able to keep his oral medications down. Diagnoses Nausea and vomiting R11.2 Hypertensive urgency I16.0 A-fib I48.91 Hypertension I10 Hyperlipidemia E78.5
[2024-08-06] MEDS: morphine 4 mg/mL SDV 1 mL 1 MG IVP ×2 (15:54→23:16)
[2024-08-06] MEDS: docusate sodium 100 mg Capsule PO (18:26)
[2024-08-07] VITALS (8 sets, daily range): BP systolic 114–180; BP diastolic 71–97; PULSE 58–86; RESP 17–18; TEMP 36.6–36.9; O2SAT 94–97
[2024-08-07] MEDS: promethazine 25 mg/mL SDV 1 mL 12.5 MG IM (02:38)
[2024-08-07] MEDS: hyDRALAzine 20 mg/mL INJ 1 mL 10 MG IVP (03:38)
[2024-08-07 03:56] LABS: Basophils # 0.1 10^3/uL (0.0-0.1); Basophils % 0.6 %; Eosinophils # 0.1 10^3/uL (0.0-0.8); Eosinophils % 1.4 %; Hematocrit 44.1 % (37-53); Lymphocytes # 1.3 10^3/uL (0.8-4.8); Lymphocytes % 14.8 %; Mean Corpuscular HGB Conc 33.6 g/dL (30-55); Mean Corpuscular Hemoglobin 29.8 pg (27-33); Mean Corpuscular Volume 88.9 fl (82-101); Mean Platelet Volume 11.8 fL (7.4-10.4); Monocytes # 0.7 10^3/uL (0.2-0.9); Monocytes % 8.3 %; Neutrophils # 6.35 10^3/uL (1.8-7.7); Neutrophils % 74.5 %; Nucleated Red Blood Cells % 0 %; Platelet Count 270 10^3/cmm (157-399); Red Blood Count 4.96 10^6/uL (3.85-5.65); Red Cell Distribution Width 12.4 % (12.1-15.1); White Blood Count 8.52 10^3/uL (3.29-11.43)
[2024-08-07 04:15] LABS: Alanine Aminotransferase 30 U/L (0-41); Albumin Level 4.1 g/dL (3.5-5.2); Alkaline Phosphatase 59 U/L (40-130); Anion Gap 15.2 (5-19); Aspartate Amino Transferase 20 U/L (0-40); Blood Urea Nitrogen 6 mg/dL (6-20); Calcium 8.8 mg/dL (8.5-10.5); Carbon Dioxide 24 mmol/L (22-29); Chloride 103 mmol/L (98-107); Creatinine Clr Calc Pharmacy 103.2331; Globulin 2.4 g/dL (1.3-4.6); Glomerular Filtration Rate 78.8 mL/min (90-130); Glucose 125 mg/dL (65-115); Magnesium 2.3 mg/dL (1.7-2.3); Osmolality Calculated 287 mOsm/kg (285-295); Phosphorus 2.8 mg/dL (2.5-4.5); Potassium 3.2 mmol/L (3.5-5.1); Sodium 139 mmol/L (136-145); Total Bilirubin 0.7 mg/dL (0.15-1.2); Total Protein 6.5 g/dL (6.6-8.7)
[2024-08-07] MEDS: pantoprazole 40 mg SDV IVP ×2 (05:22→17:41)
[2024-08-07] MEDS: ketorolac 30 mg/mL INJ IVP (05:25)
[2024-08-07] MEDS: prochlorperazine 10 mg/2 mL Inj IVP (05:56)
[2024-08-07] MEDS: lidocaine 1% 5 ML in potassium chloride premix 100 ML 26.25 ML IV ×2 (05:59→17:41)
--- NOTE | 2024-08-07 06:26 | PC.NURSE ---
While administering the pt Cardizem pt began vomiting and threw the cardizem back up. Physician notified w/NO received for compazine. Pt K+ was also low, and K-rider was ordered. Pt is now resting w/o further emesis.
[2024-08-07] MEDS: ondansetron 2 mg/ML SDV 2 mL 4 MG IVP ×2 (09:55→17:41)
[2024-08-07] MEDS: dextrose 5%-sod chloride 0.9% 1,000 ML 75 ML IV ×2 (09:58→23:54)
[2024-08-07] MEDS: gabapentin 300 mg Capsule 600 MG PO ×2 (11:34→17:41)
[2024-08-07] MEDS: lisinopril 10 mg Tablet PO (11:34)
[2024-08-07] MEDS: baclofen 10 mg Tablet PO (11:35)
[2024-08-07] MEDS: atorvastatin 40 mg Tablet 20 MG PO (11:35)
[2024-08-07] MEDS: dilTIAZem 60 mg Tablet 90 MG PO ×3 (11:35→23:54)
--- NOTE | 2024-08-07 12:30 | P.CONIM_ITS ---
Providers/Reason For Consult 2 Consulting Physician/Specialty*: General Surgery Reason for Consult*: Intractable nausea and vomiting Attending Physician: Jef Ngo MD History of Present Illness History of Present Illness Carlos Alberto Uriarte is a 53 year old male who was admitted to hospital with intractable nausea vomit, according to the patient he has had episodes like this in the past. Workup during this hospital admission was unremarkable normal white count, no changes in the LFTs CT abdomen pelvis showed no evidence of intra-abdominal pathology and a normal gallbladder with no stones. I was consulted for additional evaluation. At the moment of my evaluation patient has no abdominal pain reported Review of Systems 2 General: Reports: 10 or more systems reviewed and unremarkable except in HPI and below Medications/Allergies Home Medications Medication Instructions Recorded Confirmed Last Taken Type aripiprazole 20 mg tablet (Abilify) 20 mg PO DAILY 03/29/24 08/05/24 08/02/24 History atorvastatin 10 mg tablet 10 mg PO DAILY 03/29/24 08/05/24 08/02/24 History baclofen 10 mg tablet 10 mg PO TID PRN Pain 03/29/24 08/05/24 Unknown History gabapentin 600 mg tablet 600 mg PO BID 03/29/24 08/05/24 08/02/24 History hydroxyzine HCl 50 mg tablet 50 mg PO TID PRN Anxiety 03/29/24 08/05/24 08/02/24 History lisinopril 10 mg tablet 10 mg PO DAILY 03/29/24 08/05/24 08/02/24 History melatonin 5 mg capsule 5 mg PO BEDTIME PRN Sleep 03/29/24 08/05/24 08/02/24 History prazosin 5 mg capsule 5 mg PO DAILY 03/29/24 08/05/24 08/02/24 History sildenafil 100 mg tablet 100 mg PO DAILY PRN Sexual Activity 03/29/24 08/05/24 04/18/24 10:00 History tamsulosin 0.4 mg capsule 0.4 mg PO DAILY 03/29/24 08/05/24 08/02/24 History ondansetron 8 mg disintegrating 8 mg PO Q6H #14 tabs 06/23/24 08/05/24 Unknown Rx tablet promethazine 25 mg rectal 25 mg [place] Q6H PRN nausea and 06/23/24 08/05/24 Unknown Rx suppository vomiting #12 ea albuterol sulfate 90 mcg/actuation 2 puff inhalation Q4H PRN Wheezing 08/05/24 08/05/24 Unknown History aerosol inhaler diltiazem HCl 180 mg 360 mg PO DAILY 08/05/24 08/05/24 08/02/24 History capsule,extended release 24 hr omeprazole 40 mg capsule,delayed 40 mg PO QAM 08/05/24 08/05/24 08/02/24 History release Allergies Allergy/AdvReac Type Severity Reaction Status Date / Time clonazepam Allergy ADR-Irritab Verified 06/23/24 12:33 le Opioids - Morphine Analogues Allergy ADR-Nausea Verified 06/23/24 12:33 Current Medications Generic Name Dose Route Start Last Admin Trade Name Freq PRN Reason Stop Dose Admin Atorvastatin Calcium 20 mg 08/07/24 09:00 08/07/24 11:35 Atorvastatin 40 Mg Tablet PO 20 mg DAILY GABO Administration Baclofen 10 mg 08/05/24 16:05 08/07/24 11:35 Baclofen 10 Mg Tablet PO 10 mg TID PRN Administration Pain Diltiazem HCl 90 mg 08/05/24 16:05 08/07/24 11:35 Diltiazem 60 Mg Tablet PO 90 mg Q6H GABO Administration Gabapentin 600 mg 08/05/24 18:00 08/07/24 11:34 Gabapentin 300 Mg Capsule PO 600 mg BID GABO Administration Hydralazine HCl 10 mg 08/05/24 16:05 08/07/24 03:38 Hydralazine 20 Mg/Ml Inj 1 Ml IVP 10 mg Q4H PRN Administration SBP More than 160 mmhg Dextrose/Sodium Chloride 1,000 mls @ 75 mls/hr 08/05/24 16:05 08/07/24 09:58 Dextrose 5%-Sod Chloride 0.9% IV 75 mls/hr .[id number] GABO Administration Ketorolac Tromethamine 30 mg 08/05/24 12:49 08/07/24 05:25 Ketorolac 30 Mg/Ml Inj IVP 08/10/24 09:29 30 mg Q6H PRN Administration pain Lisinopril 10 mg 08/06/24 09:00 08/07/24 11:34 Lisinopril 10 Mg Tablet PO 10 mg DAILY GABO Administration Morphine Sulfate 1 mg 08/06/24 13:15 08/06/24 23:16 Morphine 4 Mg/Ml Sdv 1 Ml IVP 1 mg Q4H PRN Administration SEVERE PAIN Ondansetron HCl 4 mg 08/05/24 16:05 08/07/24 09:55 Ondansetron 2 Mg/Ml Sdv 2 Ml IVP 4 mg Q6H PRN Administration vomiting, or N/V if npo Pantoprazole Sodium 40 mg 08/05/24 16:05 08/07/24 05:22 Pantoprazole 40 Mg Sdv IVP 40 mg Q12H GABO Administration Prochlorperazine Edisylate 10 mg 08/07/24 05:32 08/07/24 05:56 Prochlorperazine 10 Mg/2 Ml Inj IVP 10 mg Q4H PRN Administration NAUSEA Promethazine HCl 12.5 mg 08/05/24 16:05 08/07/24 02:38 Promethazine 25 Mg/Ml Sdv 1 Ml IM 12.5 mg Q6H PRN Administration NAUSEA PFSH Acute 2 PFSH: Medical History (Updated 08/07/24 @ 12:33 by Parvez Quintanilla MD) A-fib BPH (benign prostatic hyperplasia) Hypertension Hyperlipidemia Surgical History (Updated 08/05/24 @ 17:21 by Jef Ngo MD) History of surgery on arm right arm -bicep Hx of colonoscopy 3 years ago- [place] History of hernia surgery 04/19/24 Open umbilical hernia repair using dura mesh- Dr Herrera Social History Smoking and tobacco/nicotine status: former use of tobacco/nicotine Alcohol intake: never Vitals/I&O/Wt Last Vital Signs Temp 97.8 F 08/07/24 11:14 Pulse 78 08/07/24 11:14 Resp 17 08/07/24 11:14 BP 139/97 08/07/24 11:14 Pulse Ox 94 08/07/24 11:14 O2 Del Method Room Air 08/07/24 11:14 08/06/24 08/07/24 08/07/24 22:59 06:59 14:59 Intake Total 1050 / 1530 1060 / 2590 1465 / 1465 Output Total 300 / 300 Balance 1050 / 1530 760 / 2290 1465 / 1465 Weight last 48 hrs Weight 240 lb 3.2 oz Weight 234 lb 1.6 oz Weight 240 lb 4.8 oz Physical Exam 2 GI: OTHER: Abdomen is soft nontender nondistended, there is a well-healed surgical incision at the level of the umbilicus from a hernia repair. Data 08/07/24 02:30 08/07/24 02:30 A&P Assessment and plan (1) Nausea and vomiting: (2) GERD (gastroesophageal reflux disease): Plan After complete history, physical examination and review of all available clinical data the following is my assessment. Additional workup will be needed to try to figure out the reason of the patient intractable nausea and vomit. Since he has a history of GERD esophagitis and Beckwith's esophagus I think the first step will be to obtain EGD with biopsy. I have discussed all recent benefits of the EGD including the risk of injury to soft tissue of the mouth and pharynx, risk of perforation of the esophagus stomach duodenum the risk of bleeding. Patient shows understanding wishes to proceed. We will book the EGD for tomorrow morning. His gallbladder is normal on CT scan but if symptoms remain persistent and there is no evidence of changes in the EGD next will be to obtain a HIDA scan to evaluate functionality of the gallbladder. Patient shows understanding agrees with the plan. At the moment of my evaluation he has been tolerating clear liquid diet but has not been able to advance to a GI soft. Coding Level of Care Code Acute Code for Chg Fwd Diagnoses Nausea and vomiting R11.2 GERD (gastroesophageal reflux disease) K21.9
--- NOTE | 2024-08-07 15:14 | P.PN_ITS ---
Subjective 2 Subjective: Patient still complaining of nausea and vomiting. Able to tolerate oral medications but no broth. Did have vomiting earlier today morning with medications though was able to take later in the day. Denies any abdominal pain today. Vitals/I&O/Wt Last Vital Signs Temp 97.8 F 08/07/24 11:14 Pulse 78 08/07/24 11:14 Resp 17 08/07/24 11:14 BP 139/97 08/07/24 11:14 Pulse Ox 94 08/07/24 11:14 O2 Del Method Room Air 08/07/24 11:14 08/07/24 08/07/24 08/07/24 06:59 14:59 22:59 Intake Total 1060 / 2590 1705 / 1705 Output Total 300 / 300 Balance 760 / 2290 1705 / 1705 Weight last 48 hrs Weight 108.953 kg Weight 106.186 kg Weight 108.998 kg Physical Exam 2 Narrative: General: No acute distress, AO x3 HEENT: PERRLA, pupils bilaterally equal and reactive Chest: Normal vesicular breath sounds, no added sounds, equal good air entry bilaterally CVS: S1-S2 regular, no murmurs, no tachycardia, no gallops, no rubs Abdomen: Soft, nontender, no organomegaly, bowel sounds present Neuro: No focal deficits, no facial deformity, AO x3, power 5/5 in all limbs Data 08/07/24 02:30 08/07/24 02:30 A&P Assessment and plan (1) Nausea and vomiting: Doing slightly better today. Still having nausea and vomiting with broth. Able to take oral medications today. CT abdomen pelvis done in the ER Negative for acute pathology. No pancreatitis. No concerns for gallbladder stones. No concerns for small bowel obstruction. CTA head and neck done negative for acute abnormality. Urine drug screen positive for marijuana. High concerns for nausea and vomiting in setting of marijuana. Continue with IV fluids with D5 NS at 75 cc/h. Protonix twice daily, Zofran and promethazine as needed. Check stool studies. Clear liquid diet. Counseled and encouraged patient for multiple small meals if possible. (2) Hypertensive urgency: Most likely in setting of not to take his oral medications. Received hydralazine in ER. Continue with oral lisinopril 10 mg daily as possible, Cardizem to 90 mg Q6 hourly. Uptitrate as for goal blood pressures of less than 140/90 mmHg. IV hydralazine 10 mg every 4 hours as needed for systolic blood pressure more than 160 mmHg as needed. (3) A-fib: Currently rate controlled. 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 monitoring coordinator. (4) Hypertension: (5) Hyperlipidemia: Plan Full code Clear liquid diet Protonix OPD prophylaxis Low concerns for VTE. Plan for the day: Given persistent nausea and vomiting and not able to tolerate any diet for now we will consult surgery. Possible need of endoscopy. Replace 40 mg of potassium. Continue Zofran and promethazine as needed. Plan for HIDA scan to rule out gallbladder dysmotility. Blood pressure well-controlled. For now continue with home dose of medications, Cardizem of 90 every 6 hours. Attestations 2 Medical Necessity Statement*: Requires further hospitalization for management of persistent nausea and vomiting as patient is not able to maintain oral hydration, possible need of endoscopy Diagnoses Nausea and vomiting R11.2 Hypertensive urgency I16.0 A-fib I48.91 Hypertension I10 Hyperlipidemia E78.5
[2024-08-07] MEDS: tamsulosin 0.4 mg Capsule PO (19:54)
[2024-08-07] MEDS: prazosin 5 mg Capsule PO (19:54)
[2024-08-08] VITALS (9 sets, daily range): BP systolic 111–164; BP diastolic 64–137; PULSE 52–174; RESP 16–18; TEMP 36.5–36.7; O2SAT 95–98
[2024-08-08] MEDS: ondansetron 2 mg/ML SDV 2 mL 4 MG IVP (03:50)
[2024-08-08 05:16] LABS: Basophils # 0.1 10^3/uL (0.0-0.1); Basophils % 0.8 %; Eosinophils # 0.2 10^3/uL (0.0-0.8); Eosinophils % 2.6 %; Hematocrit 42.2 % (37-53); Lymphocytes # 1.9 10^3/uL (0.8-4.8); Lymphocytes % 21.7 %; Mean Corpuscular HGB Conc 33.2 g/dL (30-55); Mean Corpuscular Hemoglobin 29.9 pg (27-33); Mean Corpuscular Volume 90.2 fl (82-101); Mean Platelet Volume 11.7 fL (7.4-10.4); Monocytes # 0.8 10^3/uL (0.2-0.9); Neutrophils # 5.69 10^3/uL (1.8-7.7); Neutrophils % 65.6 %; Nucleated Red Blood Cells % 0 %; Platelet Count 241 10^3/cmm (157-399); Red Blood Count 4.68 10^6/uL (3.85-5.65); Red Cell Distribution Width 12.8 % (12.1-15.1); White Blood Count 8.68 10^3/uL (3.29-11.43)
[2024-08-08 05:37] LABS: Alanine Aminotransferase 29 U/L (0-41); Albumin Level 3.7 g/dL (3.5-5.2); Alkaline Phosphatase 53 U/L (40-130); Anion Gap 16.8 (5-19); Aspartate Amino Transferase 18 U/L (0-40); Blood Urea Nitrogen 7 mg/dL (6-20); Calcium 8.5 mg/dL (8.5-10.5); Carbon Dioxide 21 mmol/L (22-29); Chloride 107 mmol/L (98-107); Creatinine Clr Calc Pharmacy 93.7871; Globulin 2.1 g/dL (1.3-4.6); Glomerular Filtration Rate 70.6 mL/min (90-130); Glucose 134 mg/dL (65-115); Magnesium 2.2 mg/dL (1.7-2.3); Osmolality Calculated 292 mOsm/kg (285-295); Potassium 3.8 mmol/L (3.5-5.1); Sodium 141 mmol/L (136-145); Total Bilirubin 0.4 mg/dL (0.15-1.2); Total Protein 5.8 g/dL (6.6-8.7)
[2024-08-08] MEDS: promethazine 25 mg/mL SDV 1 mL 12.5 MG IM ×2 (06:06→17:26)
[2024-08-08] MEDS: ketorolac 30 mg/mL INJ IVP (06:44)
[2024-08-08] MEDS: pantoprazole 40 mg SDV IVP ×2 (08:11→17:26)
--- NOTE | 2024-08-08 08:31 | ECG_ITS ---
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 Measurements Intervals Xenia Rate: 167 P: 0 WV: 0 QRS: 45 QRSD: 81 T: 42 QT: 266 QTc: 443 Interpretive Statements ATRIAL FLUTTER WITH RAPID VENTRICULAR RESPONSE POSSIBLE RIGHT VENTRICULAR CONDUCTION DELAY [RSR (QR) IN V1/V2] NONSPECIFIC ST & T-WAVE ABNORMALITY Compared to ECG 08/05/2024 13:49:54 Sinus rhythm no longer present T-wave abnormality still present Electronically Signed On 08-10-2024 11:24:45 LAWN TECHNICIAN by Markell Martin M.D. [id number]
--- NOTE | 2024-08-08 08:40 | USR_ITS ---
PROCEDURE INFORMATION: Exam: US Abdomen, Limited; Right Upper Quadrant Exam date and time: 08/08/2024 4:01 PM Age: 53 years old Clinical indication: Nausea and vomiting; Additional info: Ruq pain, nausea and vomit TECHNIQUE: Imaging protocol: Real time ultrasound of the abdomen with image documentation. Limited exam focused on the right upper quadrant. COMPARISON: CT abdomen wo con [id number] 08/05/2024 8:13 AM FINDINGS: Liver: Visualized hepatic parenchyma is echogenic. The liver contour is grossly smooth. Gallbladder: No evidence of cholelithiasis. There may be small biliary sludge. No significant wall thickening or edema to suggest cholecystitis.The cook syrup maker reports a negative sonographic Overton's sign. Biliary ducts: The CBD is nondilated, measuring 4 mm. No sonographic evidence of intraductal stone. Pancreas: The pancreas is mostly obscured bowel gas. Visualized portions are grossly unremarkable. Right kidney: The right kidney is normal in echotexture and measures 12.4 cm in length. No evidence of hydronephrosis. US/US gall bladder [id number] IMPRESSION: 1. No cholelithiasis or sonographic evidence of acute cholecystitis.
--- NOTE | 2024-08-08 08:45 | PC.NURSE ---
Patient arrived to the department and upon arrival we hook the patient up to the pulse ox and blood pressure cuff. At this time we noted patient had a heart rate of 174 and a blood pressure of 164/137. Patient also stated he had 8/10 chest pressure. EKG obtained and anesthesia reviewed the EKG and the patient was in A-fib with RVR and they will not proceed with the patients EGD. Med-surg charge nurse was notified of the incident and stated she would contact the hospitalist. Patient transported back to the floor. Staff notified patient was in the room. CHANDLER Bernstein and I spoke with the hospitalist before leaving med-surg.
[2024-08-08] MEDS: dilTIAZem 60 mg Tablet 90 MG PO (08:51)
[2024-08-08] MEDS: dilTIAZem 5 mg/mL SDV 5 mL 20 MG IVP (08:52)
[2024-08-08] MEDS: HYDROmorphone 1 mg/mL INJ 1 mL IVP ×3 (09:17→21:49)
[2024-08-08] MEDS: dilTIAZem ER (24HR) 180 mg Capsule 360 MG PO (09:25)
[2024-08-08] MEDS: metoprolol tartrate 1 mg/1 mL SDV 5 mL 5 MG IVP (09:26)
[2024-08-08 09:38] LABS: Lipase 62 U/L (13-60)
--- NOTE | 2024-08-08 11:02 | P.PN_ITS ---
Subjective 2 Subjective: 53-year-old male who is admitted to the hospital with intractable nausea and vomit. Continue to have nausea and vomit. He was plan for EGD today but unfortunately he was noted to be in A-fib with RVR when he was taken to the endoscopy. In addition he had a HIDA scan done today showing evidence of good filling of the gallbladder but no contraction after more than 60 minutes. Once he returned to his room he had large episode of vomiting which was bilious. Vitals/I&O/Wt Last Vital Signs Temp 98.1 F 08/08/24 08:24 Pulse 174 H 08/08/24 08:24 Resp 18 08/08/24 09:17 BP 164/137 08/08/24 08:24 Pulse Ox 96 08/08/24 08:24 O2 Del Method Room Air 08/08/24 08:24 08/07/24 08/08/24 08/08/24 22:59 06:59 14:59 Intake Total 1210.000 / 2915.000 246.25 / 3161.250 Balance 1210.000 / 2915.000 246.25 / 3161.250 Weight last 48 hrs Weight 233 lb 12.8 oz Weight 240 lb 3.2 oz Physical Exam 2 GI: OTHER: Abdomen is soft there are some tenderness in the right upper quadrant that is minimal. Data 08/08/24 04:12 08/08/24 04:12 A&P Assessment and plan (1) Nausea and vomiting: (2) GERD (gastroesophageal reflux disease): (3) Biliary dyskinesia: Plan Attending with the current clinical picture as well as new results from HIDA scan the most likely cause for this patient's symptoms is biliary dyskinesia. I will obtain an ultrasound of the gallbladder to rule out other obstructive pathology although is highly unlikely as all his laboratory workup is unremarkable. I do not think we need to proceed with EGD at this point, I will offer him a laparoscopic, possible open cholecystectomy. All the risk and benefits of the procedure were discussed with the patient including the risks of bleeding, infection, damage to surrounding structures including liver, duodenum, colon, risk of injuring bile ducts requiring extensive surgery at higher level of care facility, risk of retained stones, bile leak, bilioma, need for subtotal cholecystectomy, hernia and wound related complications, need to conversion to open procedure. Patient shows understanding and would like to proceed. Lap ariela will be booked for tomorrow. Medical team will work today with patient to achieve rate control Attestations 2 Medical Necessity Statement*: Per medical team Coding Level of Care Code 55792 Diagnoses Nausea and vomiting R11.2 GERD (gastroesophageal reflux disease) K21.9 Biliary dyskinesia K82.8
--- NOTE | 2024-08-08 11:48 | P.PN_ITS ---
Subjective 2 Subjective: Patient was taken to the GI lab this morning with plans for EGD. EGD was canceled as patient was found to be in atrial tachycardia with a backup ventricular rate with heart rates in the 180s beats per minute. Patient seen and evaluated. Telemetry reapplied revealing persistent atrial tachycardia with RVR. Does report chest discomfort with onset the same as the RVR. Endorses persistent nausea. Reports he threw up his pills this morning including his Cardizem dose. He has received multiple antiemetics but states not have shown any improvement. He denies fevers or chills. Discussed plan of care and patient stated agreement. Medications: Reviewed: Yes Vitals/I&O/Wt Last Vital Signs Temp 98.1 F 08/08/24 08:24 Pulse 174 H 08/08/24 08:24 Resp 18 08/08/24 09:17 BP 164/137 08/08/24 08:24 Pulse Ox 96 08/08/24 08:24 O2 Del Method Room Air 08/08/24 08:24 08/07/24 08/08/24 08/08/24 22:59 06:59 14:59 Intake Total 1210.000 / 2915.000 246.25 / 3161.250 Balance 1210.000 / 2915.000 246.25 / 3161.250 Weight last 48 hrs Weight 106.05 kg Weight 108.953 kg Physical Exam 2 Narrative: General: Patient is awake. Appears uncomfortable, in mild distress. Head: Normocephalic. Atraumatic. EOM intact. Neck: No JVD. Cardiovascular: No gallops. No murmurs. No peripheral edema. Irregularly irregular rhythm. Marked tachycardia. Lungs: Clear to auscultation, no use of accessory muscles, no crackles or wheezes. Skin: No jaundice. No rashes. Abdomen: Hypoactive bowel sounds, abdomen soft and slightly tender to deep palpation. Genito Urinary: Genital exam not performed since complaints not related. Rectal: Rectal exam not performed since no symptoms indicated blood loss. Extremities: No cyanosis or clubbing. Musculoskeletal: No swollen or erythematous joints. Neurological: Moves all 4 extremities. No myoclonus. Data 08/08/24 04:12 08/08/24 04:12 A&P Assessment and plan (1) A-fib: Atrial tachycardia with rapid ventricular rate Status post IV Cardizem push and IV metoprolol push Continue oral Cardizem, rotate to long-acting dose Continuous telemetry monitoring Patient may need transferred for IV drip if he fails to respond above interventions Monitor and correct electrolytes as needed Supportive care (2) Nausea and vomiting: Intractable nausea and vomiting of unclear etiology Patient discussed with general surgery, HIDA scan is abnormal which could be the culprit Plan for cholecystectomy tomorrow Follow-up gallbladder ultrasound from today Okay to return to clear liquid diet after ultrasound complete Continue antiemetics Continue IV fluids Patient is not responding to treatment as intended, he requires ongoing hospitalization (3) Abnormal biliary HIDA scan: Patient discussed with general surgery, appreciate recommendations N.p.o. after midnight for cholecystectomy (4) Hypertensive urgency: Blood pressure markedly elevated this morning although he is having nausea/vomiting as well as symptomatic A-fib with RVR Continue monitoring blood pressure Optimize heart rate Treat underlying nausea Continue antihypertensives as needed (5) Marijuana use: Patient would benefit from cessation (6) GERD (gastroesophageal reflux disease): Continue PPI Plan DVT prophylaxis: SCD Attestations 2 Medical Necessity Statement*: Patient remains with severe nausea/vomiting not tolerating oral intake or responding to treatment as intended, found to have abnormal HIDA scan requiring cholecystectomy, found to have cardiac arrhythmia requiring multiple doses of IV push medications, and elevated blood pressures requiring ongoing titration of blood pressure medications for which patient requires ongoing hospitalization. Coding Level of Care Code Acute Code for Chg Fwd Diagnoses A-fib I48.91 Nausea and vomiting R11.2 Abnormal biliary HIDA scan R94.8 Hypertensive urgency I16.0 Marijuana use F12.90 GERD (gastroesophageal reflux disease) K21.9
--- NOTE | 2024-08-08 11:58 | NM_ITS ---
WS: [id number] NUCLEAR MEDICINE HIDA SCAN WITH GALLBLADDER EJECTION FRACTION HISTORY: billiary dysfunction COMPARISON: CT 08/05/2024 TECHNIQUE: The patient was intravenously injected with 8.6 mCi of TC99m Mebrofenin. Immediate imaging over the right upper quadrant was followed by 5 minute image and additional images for a total of 60 minutes. Normal uptake of radiotracer throughout the liver. Activity identified in the gallbladder at 10 minutes and well distended by 60 minutes. No definite activity noted within the small bowel. Good washout of the radiotracer from the liver by 60 minutes. Radiotracer appears to be collecting within the gallbladder. The patient then drank 8 ounces of Ensure Plus. Gallbladder did not contract at 60 minutes. Post fatty meal symptoms: Patient continued with RIGHT upper pain and vomiting. Vomiting and pain wer e present before the HIDA scan. NM/NM hepatobiliary w phar* [id number] IMPRESSION: 1. Gallbladder fills normally with radionuclide but does not contract. 2. There is no gallbladder contraction. No significant amount of radionuclide identified in the small bowel at 60 minutes. Consider gallbladder dyskinesia an d common bile duct stone. 3. No recent RIGHT upper quadrant ultrasound has been performed. Consider eval uation of the gallbladder and common bile duct by RIGHT upper quadrant ultrasou nd.
[2024-08-08] MEDS: gabapentin 300 mg Capsule 600 MG PO (17:28)
[2024-08-08] MEDS: dextrose 5%-sod chloride 0.9% 1,000 ML 75 ML IV (17:29)
[2024-08-09] VITALS (21 sets, daily range): BP systolic 96–169; BP diastolic 62–92; PULSE 54–97; RESP 16–24; TEMP 36.1–36.9; O2SAT 92–99
[2024-08-09] MEDS: HYDROmorphone 1 mg/mL INJ 1 mL IVP ×3 (03:32→20:03)
[2024-08-09] MEDS: dextrose 5%-sod chloride 0.9% 1,000 ML 75 ML IV ×2 (05:25→23:21)
[2024-08-09] MEDS: pantoprazole 40 mg SDV IVP ×2 (05:25→17:44)
[2024-08-09 07:09] LABS: Alanine Aminotransferase 26 U/L (0-41); Alkaline Phosphatase 59 U/L (40-130); Anion Gap 18.1 (5-19); Aspartate Amino Transferase 19 U/L (0-40); Blood Urea Nitrogen 6 mg/dL (6-20); Carbon Dioxide 20 mmol/L (22-29); Chloride 104 mmol/L (98-107); Creatinine Clr Calc Pharmacy 103.9733; Globulin 1.6 g/dL (1.3-4.6); Glomerular Filtration Rate 78.8 mL/min (90-130); Glucose 107 mg/dL (65-115); Magnesium 2.2 mg/dL (1.7-2.3); Osmolality Calculated 284 mOsm/kg (285-295); Phosphorus 3.4 mg/dL (2.5-4.5); Potassium 4.1 mmol/L (3.5-5.1); Sodium 138 mmol/L (136-145); Total Bilirubin 0.5 mg/dL (0.15-1.2); Total Protein 5.6 g/dL (6.6-8.7)
--- NOTE | 2024-08-09 07:36 | W.PM.OPSFHP ---
Same Day Surgery H&P Indication for Procedure/HPI DATE OF PROCEDURE: August 09, 2024 CHIEF COMPLAINT/INDICATIONFOR SURGICAL PROCEDURE: Biliary diskynesia and intractable vomit PREOP DIAGNOSIS: biliary diskinesia PLANNED PROCEDURE: Operation Date: 08/08/24 12:00 Proposed Procedures p EGD(Not Applicable) - Parvez Quintanilla MD Operation Date: 08/09/24 14:00 Proposed Procedures p Laparoscopic Cholecystectomy(Not Applicable) - Parvez Quintanilla MD Medications/Allergies* Home Medications Medication Instructions Recorded Confirmed Type aripiprazole 20 mg tablet (Abilify) 20 mg PO DAILY 03/29/24 08/05/24 History atorvastatin 10 mg tablet 10 mg PO DAILY 03/29/24 08/05/24 History baclofen 10 mg tablet 10 mg PO TID PRN Pain 03/29/24 08/05/24 History gabapentin 600 mg tablet 600 mg PO BID 03/29/24 08/05/24 History hydroxyzine HCl 50 mg tablet 50 mg PO TID PRN Anxiety 03/29/24 08/05/24 History lisinopril 10 mg tablet 10 mg PO DAILY 03/29/24 08/05/24 History melatonin 5 mg capsule 5 mg PO BEDTIME PRN Sleep 03/29/24 08/05/24 History prazosin 5 mg capsule 5 mg PO DAILY 03/29/24 08/05/24 History sildenafil 100 mg tablet 100 mg PO DAILY PRN Sexual Activity 03/29/24 08/05/24 History tamsulosin 0.4 mg capsule 0.4 mg PO DAILY 03/29/24 08/05/24 History albuterol sulfate 90 mcg/actuation 2 puff inhalation Q4H PRN Wheezing 08/05/24 08/05/24 History aerosol inhaler diltiazem HCl 180 mg 360 mg PO DAILY 08/05/24 08/05/24 History capsule,extended release 24 hr omeprazole 40 mg capsule,delayed 40 mg PO QAM 08/05/24 08/05/24 History release Allergies/Adverse Reactions Allergy/AdvReac Type Severity Reaction Status Date / Time clonazepam Allergy ADR-Irritab Verified 06/23/24 12:33 le Opioids - Morphine Analogues Allergy ADR-Nausea Verified 06/23/24 12:33 Current Medications: Generic Name Dose Route Start Last Admin Trade Name Freq PRN Reason Stop Dose Admin Atorvastatin Calcium 20 mg 08/07/24 09:00 08/08/24 11:47 Atorvastatin 40 Mg Tablet PO Not Given DAILY GABO Baclofen 10 mg 08/05/24 16:05 08/07/24 11:35 Baclofen 10 Mg Tablet PO 10 mg TID PRN Administration Pain Diltiazem HCl 360 mg 08/08/24 09:00 08/08/24 09:25 Diltiazem Er (24hr) 180 Mg Capsule PO 360 mg DAILY GABO Administration Gabapentin 600 mg 08/05/24 18:00 08/08/24 17:28 Gabapentin 300 Mg Capsule PO 600 mg BID GABO Administration Hydralazine HCl 10 mg 08/05/24 16:05 08/07/24 03:38 Hydralazine 20 Mg/Ml Inj 1 Ml IVP 10 mg Q4H PRN Administration SBP More than 160 mmhg Hydromorphone HCl 1 mg 08/08/24 09:11 08/09/24 03:32 Hydromorphone 1 Mg/Ml Inj 1 Ml IVP 1 mg Q4H PRN Administration Pain Dextrose/Sodium Chloride 1,000 mls @ 75 mls/hr 08/05/24 16:05 08/09/24 05:25 Dextrose 5%-Sod Chloride 0.9% IV 75 mls/hr .[id number] GABO Administration Ketorolac Tromethamine 30 mg 08/05/24 12:49 08/08/24 06:44 Ketorolac 30 Mg/Ml Inj IVP 08/10/24 09:29 30 mg Q6H PRN Administration pain Lisinopril 10 mg 08/06/24 09:00 08/08/24 11:48 Lisinopril 10 Mg Tablet PO Not Given DAILY GABO Ondansetron HCl 4 mg 08/05/24 16:05 08/08/24 03:50 Ondansetron 2 Mg/Ml Sdv 2 Ml IVP 4 mg Q6H PRN Administration vomiting, or N/V if npo Pantoprazole Sodium 40 mg 08/05/24 16:05 08/09/24 05:25 Pantoprazole 40 Mg Sdv IVP 40 mg Q12H GABO Administration Prazosin HCl 5 mg 08/07/24 21:00 08/08/24 11:48 Prazosin 5 Mg Capsule PO Not Given DAILY GABO Prochlorperazine Edisylate 10 mg 08/07/24 05:32 08/07/24 05:56 Prochlorperazine 10 Mg/2 Ml Inj IVP 10 mg Q4H PRN Administration NAUSEA Promethazine HCl 12.5 mg 08/05/24 16:05 08/08/24 17:26 Promethazine 25 Mg/Ml Sdv 1 Ml IM 12.5 mg Q6H PRN Administration NAUSEA Tamsulosin HCl 0.4 mg 08/07/24 21:00 08/08/24 11:48 Tamsulosin 0.4 Mg Capsule PO Not Given DAILY GABO Pertinent History/Comorbid Conditions* Medical History (Updated 08/08/24 @ 11:51 by Chivo Olivares MD) A-fib BPH (benign prostatic hyperplasia) Hypertension Hyperlipidemia Surgical History (Updated 08/05/24 @ 17:21 by Jef Ngo MD) History of surgery on arm right arm -bicep Hx of colonoscopy 3 years ago- [place] History of hernia surgery 04/19/24 Open umbilical hernia repair using dura mesh- Dr Herrera Social History Smoking and tobacco/nicotine status: former use of tobacco/nicotine Alcohol intake: never Pertinent Exam Findings alert, oriented x 3 and clear to auscultation bilaterally Recommendations Surgery/Procedure today Coding Level of Care Code Acute Code for Chg Fwd
[2024-08-09] MEDS: atorvastatin 40 mg Tablet 20 MG PO (08:51)
[2024-08-09] MEDS: lisinopril 10 mg Tablet PO (08:51)
[2024-08-09] MEDS: dilTIAZem ER (24HR) 180 mg Capsule 360 MG PO (08:51)
[2024-08-09] MEDS: prazosin 5 mg Capsule PO (08:51)
[2024-08-09] MEDS: gabapentin 300 mg Capsule 600 MG PO ×2 (08:51→17:44)
[2024-08-09] MEDS: tamsulosin 0.4 mg Capsule PO (08:51)
--- NOTE | 2024-08-09 10:16 | P.PN_ITS ---
Subjective 2 Subjective: Patient reports he feels slightly better today. He notes that he has not had much intake so he is unsure about his abdominal symptoms. He is n.p.o. for cholecystectomy this afternoon. Reports he slept okay. Denies other new complaints. Medications: Reviewed: Yes Vitals/I&O/Wt Last Vital Signs Temp 97.7 F 08/09/24 07:52 Pulse 59 L 08/09/24 07:52 Resp 16 08/09/24 09:01 BP 124/82 08/09/24 07:52 Pulse Ox 97 08/09/24 07:52 O2 Del Method Room Air 08/09/24 07:52 08/08/24 08/09/24 08/09/24 22:59 06:59 14:59 Intake Total 2340 / 2820 895 / 3715 Balance 2340 / 2820 895 / 3715 Weight last 48 hrs Weight 107.683 kg Weight 106.05 kg Physical Exam 2 Narrative: General: Patient is awake. Lying in bed. No longer in any distress as compared to yesterday. Head: Normocephalic. Atraumatic. EOM intact. Neck: No JVD. Cardiovascular: No gallops. No murmurs. No peripheral edema. Regular rhythm. Bradycardic rate. Lungs: Clear to auscultation, no use of accessory muscles, no crackles or wheezes. Skin: No jaundice. No rashes. Abdomen: Hypoactive bowel sounds, abdomen soft and slight tenderness still present. Extremities: No cyanosis or clubbing. Musculoskeletal: No swollen or erythematous joints. Neurological: Moves all 4 extremities. No myoclonus. Data 08/08/24 04:12 08/09/24 06:17 A&P Assessment and plan (1) Abnormal biliary HIDA scan: Patient discussed with general surgery N.p.o. for cholecystectomy this afternoon (2) Nausea and vomiting: Currently n.p.o. for procedure Cholecystectomy as above Continue IV fluids Antiemetics as needed Analgesics as needed (3) A-fib: RVR is resolved, currently in sinus bradycardia, remains at risk for conversion to A-fib until he improves Continue long-acting Cardizem, if RVR recurs, may consider increasing dose versus initiation of beta-sergio Continuous telemetry monitoring Monitor and correct electrolytes as needed (4) Hypertensive urgency: Hypertensive urgency currently resolved with normal blood pressure Continue current medications and monitor (5) Marijuana use: Patient would benefit from cessation (6) GERD (gastroesophageal reflux disease): Continue PPI Plan DVT prophylaxis: SCD Attestations 2 Medical Necessity Statement*: Patient requires ongoing hospitalization for IV analgesics, IV antiemetics, surgery later today, monitoring of heart rate, and supportive care. Coding Level of Care Code Acute Code for Chg Fwd Diagnoses Abnormal biliary HIDA scan R94.8 Nausea and vomiting R11.2 A-fib I48.91 Hypertensive urgency I16.0 Marijuana use F12.90 GERD (gastroesophageal reflux disease) K21.9
[2024-08-09 11:44] LABS: Basophils # 0.1 10^3/uL (0.0-0.1); Basophils % 0.7 %; Eosinophils # 0.2 10^3/uL (0.0-0.8); Eosinophils % 3.2 %; Hematocrit 40.3 % (37-53); Lymphocytes # 1.4 10^3/uL (0.8-4.8); Lymphocytes % 19.5 %; Mean Corpuscular Hemoglobin 30.3 pg (27-33); Mean Corpuscular Volume 89.2 fl (82-101); Mean Platelet Volume 11.7 fL (7.4-10.4); Monocytes # 0.6 10^3/uL (0.2-0.9); Monocytes % 8.7 %; Neutrophils # 4.79 10^3/uL (1.8-7.7); Neutrophils % 67.6 %; Nucleated Red Blood Cells % 0 %; Platelet Count 230 10^3/cmm (157-399); Red Blood Count 4.52 10^6/uL (3.85-5.65); Red Cell Distribution Width 12.4 % (12.1-15.1); White Blood Count 7.09 10^3/uL (3.29-11.43)
--- NOTE | 2024-08-09 13:17 | PC.NURSE ---
patient left at 1300 for procedure.
--- NOTE | 2024-08-09 13:23 | P.ANESASSM_ITS ---
Pre-Anesthetic Assessment Height/Weight: Height 1.73 m Weight 107.683 kg Temp Pulse Resp BP Pulse Ox O2 Del Method 97.6 F 57 L 17 119/80 97 Room Air 08/09/24 11:34 08/09/24 11:34 08/09/24 11:34 08/09/24 11:34 08/09/24 11:34 08/09/24 11:34 Preop Diagnosis: biliary diskinesia Operation Date: 08/08/24 12:00 Proposed Procedures p EGD(Not Applicable) - Parvez Quintanilla MD Operation Date: 08/09/24 14:00 Proposed Procedures p Laparoscopic Cholecystectomy(Not Applicable) - Parvez Quintanilla MD Familial anesthetic complications: None Was Beta Bety taken within 24 hours: N/A Was Clonidine taken within 24 hours: N/A Last intake: > 8 hrs Social No alcohol and No tobacco Exam alert, oriented x 3, clear to auscultation bilaterally and regular rate & rhythm Airway Mallampati: Class II Dentition: chipped Comments: Comments: Chipped with crown up front, Missing molar CV/HEM Atrial Fibrillation and Hypertension GI Gastroesophageal Reflux Disease Metabolic Hyperlipidemia Anesthetic Plan ASA status: 3 Anesthesia: General Risk of > 500 ml blood loss (7ml/kg in children): No Medications/Allergies Home Medications Medication Instructions Recorded Confirmed Last Taken Type aripiprazole 20 mg tablet (Abilify) 20 mg PO DAILY 03/29/24 08/05/24 08/02/24 History atorvastatin 10 mg tablet 10 mg PO DAILY 03/29/24 08/05/24 08/02/24 History baclofen 10 mg tablet 10 mg PO TID PRN Pain 03/29/24 08/05/24 Unknown History gabapentin 600 mg tablet 600 mg PO BID 03/29/24 08/05/24 08/02/24 History hydroxyzine HCl 50 mg tablet 50 mg PO TID PRN Anxiety 03/29/24 08/05/24 08/02/24 History lisinopril 10 mg tablet 10 mg PO DAILY 03/29/24 08/05/24 08/02/24 History melatonin 5 mg capsule 5 mg PO BEDTIME PRN Sleep 03/29/24 08/05/24 08/02/24 History prazosin 5 mg capsule 5 mg PO DAILY 03/29/24 08/05/24 08/02/24 History sildenafil 100 mg tablet 100 mg PO DAILY PRN Sexual Activity 03/29/24 08/05/24 04/18/24 10:00 History tamsulosin 0.4 mg capsule 0.4 mg PO DAILY 03/29/24 08/05/24 08/02/24 History ondansetron 8 mg disintegrating 8 mg PO Q6H #14 tabs 06/23/24 08/05/24 Unknown Rx tablet promethazine 25 mg rectal 25 mg NC Q6H PRN nausea and 06/23/24 08/05/24 Unknown Rx suppository vomiting #12 ea albuterol sulfate 90 mcg/actuation 2 puff inhalation Q4H PRN Wheezing 08/05/24 08/05/24 Unknown History aerosol inhaler diltiazem HCl 180 mg 360 mg PO DAILY 08/05/24 08/05/24 08/02/24 History capsule,extended release 24 hr omeprazole 40 mg capsule,delayed 40 mg PO QAM 08/05/24 08/05/24 08/02/24 History release Allergies Allergy/AdvReac Type Severity Reaction Status Date / Time clonazepam Allergy ADR-Irritab Verified 06/23/24 12:33 le Opioids - Morphine Analogues Allergy ADR-Nausea Verified 06/23/24 12:33 Current Medications Generic Name Dose Route Start Last Admin Trade Name Payamq PRN Reason Stop Dose Admin Atorvastatin Calcium 20 mg 08/07/24 09:00 08/09/24 08:51 Atorvastatin 40 Mg Tablet PO 20 mg DAILY GABO Administration Baclofen 10 mg 08/05/24 16:05 08/07/24 11:35 Baclofen 10 Mg Tablet PO 10 mg TID PRN Administration Pain Diltiazem HCl 360 mg 08/08/24 09:00 08/09/24 08:51 Diltiazem Er (24hr) 180 Mg Capsule PO 360 mg DAILY GABO Administration Gabapentin 600 mg 08/05/24 18:00 08/09/24 08:51 Gabapentin 300 Mg Capsule PO 600 mg BID GABO Administration Hydralazine HCl 10 mg 08/05/24 16:05 08/07/24 03:38 Hydralazine 20 Mg/Ml Inj 1 Ml IVP 10 mg Q4H PRN Administration SBP More than 160 mmhg Hydromorphone HCl 1 mg 08/08/24 09:11 08/09/24 09:01 Hydromorphone 1 Mg/Ml Inj 1 Ml IVP 1 mg Q4H PRN Administration Pain Dextrose/Sodium Chloride 1,000 mls @ 75 mls/hr 08/05/24 16:05 08/09/24 05:25 Dextrose 5%-Sod Chloride 0.9% IV 75 mls/hr .[id number] GABO Administration Ketorolac Tromethamine 30 mg 08/05/24 12:49 08/08/24 06:44 Ketorolac 30 Mg/Ml Inj IVP 08/10/24 09:29 30 mg Q6H PRN Administration pain Lisinopril 10 mg 08/06/24 09:00 08/09/24 08:51 Lisinopril 10 Mg Tablet PO 10 mg DAILY GABO Administration Ondansetron HCl 4 mg 08/05/24 16:05 08/08/24 03:50 Ondansetron 2 Mg/Ml Sdv 2 Ml IVP 4 mg Q6H PRN Administration vomiting, or N/V if npo Pantoprazole Sodium 40 mg 08/05/24 16:05 08/09/24 05:25 Pantoprazole 40 Mg Sdv IVP 40 mg Q12H GABO Administration Prazosin HCl 5 mg 08/07/24 21:00 08/09/24 08:51 Prazosin 5 Mg Capsule PO 5 mg DAILY GABO Administration Prochlorperazine Edisylate 10 mg 08/07/24 05:32 08/07/24 05:56 Prochlorperazine 10 Mg/2 Ml Inj IVP 10 mg Q4H PRN Administration NAUSEA Promethazine HCl 12.5 mg 08/05/24 16:05 08/08/24 17:26 Promethazine 25 Mg/Ml Sdv 1 Ml IM 12.5 mg Q6H PRN Administration NAUSEA Tamsulosin HCl 0.4 mg 08/07/24 21:00 08/09/24 08:51 Tamsulosin 0.4 Mg Capsule PO 0.4 mg DAILY GABO Administration PFSH Anesthesia Medical History (Updated 08/08/24 @ 11:51 by Chivo Olivares MD) A-fib BPH (benign prostatic hyperplasia) Hypertension Hyperlipidemia Surgical History (Updated 08/05/24 @ 17:21 by Jef Ngo MD) History of surgery on arm right arm -bicep Hx of colonoscopy 3 years ago- [place] History of hernia surgery 10/9/24 Open umbilical hernia repair using dura mesh- Dr Herrera Social History Smoking and tobacco/nicotine status: former use of tobacco/nicotine Alcohol intake: never Data Anesthesia 08/09/24 10:56 08/09/24 06:17 Short CBC 08/08/24 08/09/24 08/09/24 Range/Units 04:12 06:17 10:56 WBC 8.68 Cancelled 7.09 (3.29-11.43) 10^3/uL Hgb 14.00 Cancelled 13.70 (11.27-16.99) g/dL Hct 42.2 Cancelled 40.3 (37-53) % MCV 90.2 Cancelled 89.2 (82-101) fl Plt Count 241 Cancelled 230 (157-399) 10^3/cmm Neut % (Auto) 65.6 Cancelled 67.6 % Neut # (Auto) 5.69 Cancelled 4.79 (1.8-7.7) 10^3/uL BMP 08/08/24 08/09/24 04:12 06:17 Sodium 141 138 Potassium 3.8 4.1 Chloride 107 104 Carbon Dioxide 21 L 20 L BUN 7 6 Creatinine 1.1 1.0 Glucose 134 H 107 Calcium 8.5 9.0 Liver Function 08/08/24 08/09/24 Range/Units 04:12 06:17 Total Bilirubin 0.4 0.5 (0.15-1.2) mg/dL AST 18 19 (0-40) U/L ALT 29 26 (0-41) U/L Alkaline Phosphatase 53 59 (40-130) U/L Albumin 3.7 4.0 (3.5-5.2) g/dL Cardiac Studies: 2 No Data to Display
[2024-08-09] MEDS: sodium chloride 0.9% 1,000 ML 30 ML IV (13:32)
[2024-08-09] MEDS: ceFAZolin 2,000 mg SDV 2000 MG IVP (14:18)
[2024-08-09] MEDS: lidocaine-epi 1% 20 mL INJ 10 ML INJECTION (15:24)
[2024-08-09] MEDS: BUPivacaine 0.25% INJ 10 mL INJECTION (15:25)
--- NOTE | 2024-08-09 15:33 | P.OP_ITS ---
Operative Report Date of procedure: August 09, 2024 Pre-op diagnosis: Biliary dyskinesia Post-op diagnosis: Same Post-op findings: Fat infiltration around the gallbladder, otherwise normal biliary anatomy Procedure done: Laparoscopic cholecystectomy Implants: None Specimens removed/disposition: Gallbladder Surgeon: Parvez Quintanilla MD Medical Office Professional Instructor: LILY OR STaff Estimated blood loss: 5 Complications: none Brief History: 53-year-old male admitted with intractable vomiting, all workup was negative except for HIDA scan that showed no evidence of contraction of the gallbladder at 60 minutes. We decided to proceed to the OR for laparoscopic possible cholecystectomy with a tentative diagnosis of biliary dyskinesia. All risk and benefits were discussed and documented in the chart Procedure: Patient was brought into the OR, he was placed in the supine position. General anesthesia was given. The abdomen was prepped and draped in the usual sterile fashion. Timeout was conducted. The abdomen was accessed via a 5 mm trocar in the left upper quadrant with Optiview technique. Initial pneumoperitoneum was obtained and no evidence of visceral injury during entry was noted. Millimeter trocar was placed under direct visualization in the supraumbilical region, additional 5 mm trocars were placed in direct visualization in the epigastrium right upper quadrant right flank. The patient was placed in the reverse Trendelenburg with the left side down. The gallbladder was grasped by the fundus and elevated I then grasped the infundibulum and retracted in the inferolateral direction. I then proceeded to open the peritoneum anterior to the hepatocystic triangle using electrocautery, I carried this opening into the medial and lateral direction to the edges of the liver and then on the sides of the gallbladder to allow for better visualization. There was significant fat infiltration around hepatocystic triangle, using blunt dissection I was able to identify the cystic artery and cystic duct. I was then able to encircle the cystic artery and duct and elevate the lower third of the gallbladder from the liver bed thus creating a critical view of safety. The nodule of [place]ot Appear inflamed. Before transecting any of the structures the gallbladder which was physiologically distended spontaneously decompressed, this is consistent with the possibility of biliary dyskinesia. I then proceeded to double clip proximally and single clipped distally the cystic artery and cystic duct. I then transected the cystic artery and cystic duct. I then remove the gallbladder from the liver bed using electrocautery. After removing the gallbladder no evidence of bile leak was noted no bleeding was noted in the liver.. The gallbladder was retrieved in a Endo Catch bag via the umbilical trocar site. The gallbladder fossa was irrigated and aspirated and once again no evidence of bile leakage or bleeding was noted. We then proceeded to closed umbilical trocar site using Best-Violeta suture passer under direct visualization. I used a #0 Vicryl for this. I then proceeded to remove the epigastrium right upper quadrant and right flank trocars and direct visualization. The left upper quadrant trocar was used to back to the pneumoperitoneum and subsequently removed. The wounds were then closed in layers using #3 Vicryl for subcutaneous tissue #4 Monocryl for the skin and Dermabond was applied. Before wound closure 20 cc of local anesthesia was infiltrated. At the end of the procedure all counts were correct, the patient tolerated well the procedure was transferred to PACU in stable condition.
[2024-08-09] MEDS: fentaNYL 50 mcg/mL INJ 2mL IVP (16:00)
[2024-08-09] MEDS: metoprolol succinate ER (24 HR) 25 mg Tablet PO (17:45)
[2024-08-09] MEDS: ketorolac 30 mg/mL INJ IVP (17:45)
[2024-08-09] MEDS: docusate sodium 100 mg Capsule PO (17:45)
[2024-08-09] MEDS: baclofen 10 mg Tablet PO (20:03)
[2024-08-10 03:29] VITALS: BP 135/82; PULSE 67; RESP 17; TEMP 36.8; O2SAT 95
[2024-08-10] MEDS: ketorolac 30 mg/mL INJ IVP (04:07)
[2024-08-10] MEDS: pantoprazole 40 mg SDV IVP (05:09)
[2024-08-10] MEDS: metoprolol succinate ER (24 HR) 25 mg Tablet PO (05:10)
[2024-08-10 05:32] LABS: Hematocrit 40.9 % (37-53); Lymphocytes # 0.6 10^3/uL (0.8-4.8); Lymphocytes % 5.2 %; Mean Corpuscular HGB Conc 33.7 g/dL (30-55); Mean Corpuscular Hemoglobin 29.7 pg (27-33); Mean Corpuscular Volume 88.1 fl (82-101); Monocytes # 0.4 10^3/uL (0.2-0.9); Monocytes % 3.3 %; Neutrophils # 10.55 10^3/uL (1.8-7.7); Neutrophils % 90.9 %; Nucleated Red Blood Cells % 0 %; Platelet Count 286 10^3/cmm (157-399); Red Blood Count 4.64 10^6/uL (3.85-5.65); Red Cell Distribution Width 12.4 % (12.1-15.1)
[2024-08-10 05:53] LABS: Alanine Aminotransferase 36 U/L (0-41); Albumin Level 4.3 g/dL (3.5-5.2); Alkaline Phosphatase 64 U/L (40-130); Anion Gap 19.4 (5-19); Aspartate Amino Transferase 21 U/L (0-40); Blood Urea Nitrogen 5 mg/dL (6-20); Calcium 9.7 mg/dL (8.5-10.5); Carbon Dioxide 21 mmol/L (22-29); Chloride 100 mmol/L (98-107); Creatinine Clr Calc Pharmacy 105.7899; Glomerular Filtration Rate 78.8 mL/min (90-130); Glucose 133 mg/dL (65-115); Magnesium 2.2 mg/dL (1.7-2.3); Osmolality Calculated 281 mOsm/kg (285-295); Phosphorus 3.8 mg/dL (2.5-4.5); Potassium 4.4 mmol/L (3.5-5.1); Sodium 136 mmol/L (136-145); Total Bilirubin 0.4 mg/dL (0.15-1.2); Total Protein 6.3 g/dL (6.6-8.7)
--- NOTE | 2024-08-10 06:46 | P.PN_ITS ---
Subjective 2 Subjective: Postoperative day 1 status post laparoscopic cholecystectomy for biliary dyskinesia. Patient doing very well only some tenderness in the surgical site which is expected but he is tolerating liquids no nausea or vomiting Vitals/I&O/Wt Last Vital Signs Temp 98.2 F 08/10/24 03:29 Pulse 67 08/10/24 03:29 Resp 17 08/10/24 03:29 BP 135/82 08/10/24 03:29 Pulse Ox 95 08/10/24 03:29 O2 Del Method Room Air 08/10/24 03:29 O2 Flow Rate 2 08/09/24 17:40 08/09/24 08/09/24 08/10/24 14:59 22:59 06:59 Intake Total 568.75 / 568.75 183.5 / 752.25 642.5 / 1394.75 Output Total 1200 / 1200 450 / 1650 Balance 568.75 / 568.75 -1016.5 / -447.75 192.5 / -255.25 Weight last 48 hrs Weight 245 lb 8 oz Weight 245 lb 8 oz Weight 237 lb 6.4 oz Physical Exam 2 GI: OTHER: Abdomen is soft, appropriately tender, surgical incisions healing well Data 08/10/24 04:53 08/10/24 04:53 A&P Assessment and plan (1) Abnormal biliary HIDA scan: Plan Excellent progression after lap ariela for biliary dyskinesia. Will be advance to GI soft diet today, if tolerating he can be discharged from the general surgery standpoint and follow-up in 2 weeks for postoperative care. Attestations 2 Medical Necessity Statement*: Per medical team Coding Level of Care Code Acute Code for Chg Fwd Diagnoses Abnormal biliary HIDA scan R94.8
[2024-08-10 07:15] VITALS: BP 137/84; PULSE 66; RESP 15; TEMP 36.6; O2SAT 98
[2024-08-10] MEDS: dilTIAZem ER (24HR) 180 mg Capsule 360 MG PO (08:52)
[2024-08-10] MEDS: lisinopril 10 mg Tablet PO (08:52)
[2024-08-10] MEDS: prazosin 5 mg Capsule PO (08:52)
[2024-08-10] MEDS: gabapentin 300 mg Capsule 600 MG PO (08:52)
[2024-08-10] MEDS: atorvastatin 40 mg Tablet 20 MG PO (08:52)
[2024-08-10] MEDS: tamsulosin 0.4 mg Capsule PO (08:52)
[2024-08-10 12:00] VITALS: BP 130/83; PULSE 71; RESP 17; TEMP 36.8; O2SAT 97
--- NOTE | 2024-08-10 12:05 | PM.DCS ---
Discharge Providers Date of Admission: 08/05/24 16:05 Date of Discharge: August 10, 2024 Attending Provider at Admission: Jef Ngo MD Attending Provider at Discharge: Chivo Olivares MD Consults: General Surgery Diagnoses at Discharge Discharge Diagnosis (1) Abnormal biliary HIDA scan: Status: Acute Reason for Visit Reason for Visit: vomitting Hospital Course Hospital Course Carlos Alberto Uriarte is a 53-year-old male hypertension, recent history of atrial fibrillation, BPH presents to the ER today because of persistent nausea and vomiting, found to have intractable nausea and vomiting. Patient was initially treated with supportive care, IV fluids, and antiemetics. He failed to respond to treatment initially. General surgery consulted and followed. Further workup was conducted including HIDA scan which was abnormal revealing biliary dyskinesia. He subsequently went laparoscopic cholecystectomy. His postprocedure course was uncomplicated. His nausea and vomiting resolved postoperatively. Patient tolerating GI soft diet prior to discharge. His hospital course was complicated by paroxysmal atrial fibrillation with rapid ventricular rate. He required multiple IV pushes of AV wanda blocking agents to control his rates in addition to titration of his home medications. Patient was already on Cardizem prior to admission. Metoprolol succinate twice daily was added for better control. [id number] score seems to be 1 just for hypertension. Patient has close follow-up to establish with cardiology clinic next week. 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 Patient was also found to have hypertensive urgency. Blood pressures improved after better analgesic control and initiation of beta-sergio. Otherwise he was continued on his home medications. Patient discharged home in stable condition. He is to follow-up with his PCP within one week for ongoing care. Physical Exam Narrative: General: Patient is awake and alert. Standing by bed eating breakfast. Pleasant. Head: Normocephalic. Atraumatic. EOM intact. Neck: No JVD. Cardiovascular: RRR. No gallops. No murmurs. Lungs: Clear to auscultation, no use of accessory muscles, no crackles or wheezes. Skin: No jaundice. No rashes. Abdomen: Abdomen is slightly distended. Very minor pain at trocar sites. Adequate bowel sounds. Extremities: No cyanosis or clubbing. Musculoskeletal: No erythematous joints. Neurological: Moves all 4 extremities. No myoclonus. Discharge Data Studies Completed and Pending Completed Studies During Hospitalization Category Date Time Status CT abdomen wo con [id number] Stat Cat Scan 08/05/24 07:[address] angio head neck [CT angio headneck* [id number]] Cat Scan 08/05/24 08:[address] head wo con* [id number] Stat Cat Scan 08/05/24 07:50 Completed NM hepatobiliary w phar* [id number] Routine Nuc Med 08/08/24 11:58 Completed US gall bladder [id number] Routine Ultrasound 08/08/24 08:40 Completed Pending at discharge Category Date Time Status Pathology: Surgical [PTH] Routine Pth 08/09/24 15:09 Received Radiology Impressions Abdomen CT 08/05/24 07:50 IMPRESSION: No acute abdominal abnormality. Head CT 08/05/24 07:50 IMPRESSION: No acute intracranial abnormality. Head/Neck CTA 08/05/24 08:52 IMPRESSION: No large vessel stenosis or occlusion. IMPRESSION: No stenosis, dissection or occlusion. REFERENCES: NASCET CRITERIA. The degree of stenosis in the cervical segment of the internal carotid artery is based on NASCET criteria. Normal is no stenosis. Mild is less than 50% stenosis. Moderate is 50-69% stenosis. Severe is 70% to 99% stenosis. Total occlusion is no detectable patent lumen. Gallbladder Ultrasound 08/08/24 08:40 IMPRESSION: 1. No cholelithiasis or sonographic evidence of acute cholecystitis. Hepatobiliary Scan Nuclear Medicine 08/08/24 11:58 IMPRESSION: 1. Gallbladder fills normally with radionuclide but does not contract. 2. There is no gallbladder contraction. No significant amount of radionuclide identified in the small bowel at 60 minutes. Consider gallbladder dyskinesia and common bile duct stone. 3. No recent RIGHT upper quadrant ultrasound has been performed. Consider evaluation of the gallbladder and common bile duct by RIGHT upper quadrant ultrasound. Laboratory Results WBC 11.60 10^3/uL (3.29-11.43) H 08/10/24 04:53 Corrected WBC Cancelled 08/09/24 06:17 RBC 4.64 10^6/uL (3.85-5.65) 08/10/24 04:53 Hgb 13.80 g/dL (11.27-16.99) 08/10/24 04:53 Hct 40.9 % (37-53) 08/10/24 04:53 MCV 88.1 fl (82-101) 08/10/24 04:53 MCH 29.7 pg (27-33) 08/10/24 04:53 MCHC 33.7 g/dL (30-55) 08/10/24 04:53 RDW 12.4 % (12.1-15.1) 08/10/24 04:53 Plt Count 286 10^3/cmm (157-399) 08/10/24 04:53 MPV 12.0 fL (7.4-10.4) H 08/10/24 04:53 Gran % Cancelled 08/09/24 06:17 Neut % (Auto) 90.9 % 08/10/24 04:53 Lymph % (Auto) 5.2 % 08/10/24 04:53 [place] % (Auto) 3.3 % 08/10/24 04:53 Eos % (Auto) 0.0 % 08/10/24 04:53 Baso % (Auto) 0.0 % 08/10/24 04:53 Neut # (Auto) 10.55 10^3/uL (1.8-7.7) H 08/10/24 04:53 Lymph # (Auto) 0.6 10^3/uL (0.8-4.8) L 08/10/24 04:53 [place] # (Auto) 0.4 10^3/uL (0.2-0.9) 08/10/24 04:53 Eos # (Auto) 0.0 10^3/uL (0.0-0.8) 08/10/24 04:53 Baso # (Auto) 0.0 10^3/uL (0.0-0.1) 08/10/24 04:53 Absolute Gran (auto) Cancelled 08/09/24 06:17 Nucleated RBC % (auto) 0 % 08/10/24 04:53 Nucleated RBCs # 0.0 /100WBC 08/10/24 04:53 D-Dimer 0.42 ug/mLFEU (0-0.59) 08/05/24 07:45 Sodium 136 mmol/L (136-145) 08/10/24 04:53 Potassium 4.4 mmol/L (3.5-5.1) 08/10/24 04:53 Chloride 100 mmol/L (98-107) 08/10/24 04:53 Carbon Dioxide 21 mmol/L (22-29) L 08/10/24 04:53 Anion Gap 19.4 (5-19) H 08/10/24 04:53 BUN 5 mg/dL (6-20) L 08/10/24 04:53 Creatinine 1.0 mg/dL (0.7-1.2) 08/10/24 04:53 GFR Calculation 78.8 mL/min (90-130) L 08/10/24 04:53 Glucose 133 mg/dL (65-115) H 08/10/24 04:53 POC Glucose 103 mg/dL (70-110) 08/05/24 16:28 Estimat Average Glucose 114 08/05/24 07:45 Hemoglobin A1c 5.6 % (4.0-6.0) 08/05/24 07:45 Calculated Osmolality 281 mOsm/kg (285-295) L 08/10/24 04:53 Lactic Acid 1.0 mmol/L (0.5-2.2) 08/05/24 14:05 Calcium 9.7 mg/dL (8.5-10.5) 08/10/24 04:53 Phosphorus 3.8 mg/dL (2.5-4.5) 08/10/24 04:53 Magnesium 2.2 mg/dL (1.7-2.3) 08/10/24 04:53 Iron 79 ug/dL (59-158) 08/05/24 09:41 TIBC 295 mcg/dl 08/05/24 09:41 % Saturation 26.7 % (20-50) 08/05/24 09:41 Unsat Iron Binding 216 ug/dL (112-347) 08/05/24 09:41 Total Bilirubin 0.4 mg/dL (0.15-1.2) 08/10/24 04:53 AST 21 U/L (0-40) 08/10/24 04:53 ALT 36 U/L (0-41) 08/10/24 04:53 Alkaline Phosphatase 64 U/L (40-130) 08/10/24 04:53 Troponin T Baseline 26 ng/L (0-15) H 08/05/24 07:45 Troponin T 120 Minute 22.69 ng/L (0-15) H 08/05/24 09:41 Delta Troponin T -3.31 ABS# (0-10) L 08/05/24 09:41 Troponin T Hi Sens 6Hr 20.43 ng/L (0-15) H 08/05/24 14:05 Troponin T Hi Sens 6Hr Delta -5.57 ng/L (0-12) L 08/05/24 14:05 Total Protein 6.3 g/dL (6.6-8.7) L 08/10/24 04:53 Albumin 4.3 g/dL (3.5-5.2) 08/10/24 04:53 Globulin 2.0 g/dL (1.3-4.6) 08/10/24 04:53 Triglycerides 137 mg/dL (0-150) 08/06/24 02:38 Cholesterol 166 mg/dL (0-200) 08/06/24 02:38 LDL Cholesterol, Calc 103 mg/dL (50-129) 08/06/24 02:38 HDL Cholesterol 36 mg/dL (60-100) L 08/06/24 02:38 LDL/HDL Ratio 2.86 RATIO (0.00-3.22) 08/06/24 02:38 Cholesterol/HDL Ratio 4.61 mg/dL (1.0-5.00) 08/06/24 02:38 Lipase 62 U/L (13-60) H 08/08/24 04:12 Vitamin B12 1094 pg/mL (232-1245) 08/05/24 09:41 Folate 9.4 ng/mL (4.5-32.2) 08/06/24 02:38 Procalcitonin 0.05 ng/mL (0-0.5) 08/06/24 02:38 TSH 1.10 uIU/mL (0.27-4.20) 08/05/24 09:41 Urine Color Yellow (Yellow) 08/05/24 12:18 Urine Appearance Clear (CLEAR) 08/05/24 12:18 Urine pH 8.5 (5-7) A 08/05/24 12:18 Ur Specific [place] 1.067 (1.005-1.030) H 08/05/24 12:18 Urine Protein Trace (Negative) A 08/05/24 12:18 Urine Glucose (UA) Negative (Normal) 08/05/24 12:18 Urine Ketones Negative (Negative) 08/05/24 12:18 Urine Blood Negative (Negative) 08/05/24 12:18 Urine Nitrate Negative (Negative) 08/05/24 12:18 Urine Bilirubin Negative (Negative) 08/05/24 12:18 Urine Urobilinogen 1.0 mg/dL (Negative) 08/05/24 12:18 Ur Leukocyte Esterase Negative (Negative) 08/05/24 12:18 Urine RBC 0-2 /hpf (0-2) 08/05/24 12:18 Urine WBC 0-5 /hpf (0-5) 08/05/24 12:18 Ur Squamous Epith Cells 0-5 /hpf (0-5) 08/05/24 12:18 Amorphous Sediment Not Reportable 08/05/24 12:18 Urine Bacteria None seen /hpf (NONE) 08/05/24 12:18 Hyaline Casts 0-4 /lpf H 08/05/24 12:18 Stool Rotavirus A PCR Cancelled 08/06/24 10:00 Stl Salmonella enterica PCR Cancelled 08/06/24 10:00 Stool Shigella PCR Cancelled 08/06/24 10:00 St Y.enterocolitica PCR Cancelled 08/06/24 10:00 Stl Vibrio cholerae PCR Cancelled 08/06/24 10:00 Stl Norovirus GI/GII PCR Cancelled 08/06/24 10:00 Urine Opiates Screen Negative ng/mL (Negative) 08/05/24 12:18 Ur Barbiturates Screen Negative ng/mL (Negative) 08/05/24 12:18 Ur Phencyclidine Scrn Negative ng/mL (Negative) 08/05/24 12:18 Ur Amphetamines Screen Negative ng/mL (Negative) 08/05/24 12:18 U Benzodiazepines Scrn Positive ng/mL (Negative) H 08/05/24 12:18 Urine Cocaine Screen Negative ng/mL (Negative) 08/05/24 12:18 U Marijuana (THC) Screen Positive ng/mL (Negative) H 08/05/24 12:18 Serum Ketones Negative (Negative) 08/05/24 07:45 Campylobacter (PCR) Cancelled 08/06/24 10:00 Shiga Toxin 1 Cancelled 08/06/24 10:00 Shiga Toxin 2 Cancelled 08/06/24 10:00 Ref Report Verification Cancelled 08/06/24 10:00 Procedures Performed Laparoscopic cholecystectomy Vitals Last Vital Signs Temp 97.8 F 08/10/24 07:15 Pulse 66 08/10/24 07:15 Resp 15 08/10/24 07:15 BP 137/84 08/10/24 07:15 Pulse Ox 98 08/10/24 07:15 O2 Del Method Room Air 08/10/24 07:15 O2 Flow Rate 2 08/09/24 17:40 Discharge Plan Discharge Patient Disposition: Home Condition: Stable Prescriptions: New metoprolol succinate 25 mg Tablet Extended Release 24 Hr 25 mg PO Q12H 30 Days Qty: 60 0RF hydromorphone 4 mg tablet 4 mg PO Q6H PRN (Reason: pain) 5 Days Qty: 15 0RF Rx Instructions: Do not exceed 4 tabs in 24 hours. Continued aripiprazole [Abilify] 20 mg tablet 20 mg PO DAILY atorvastatin 10 mg tablet 10 mg PO DAILY gabapentin 600 mg tablet 600 mg PO BID baclofen 10 mg tablet 10 mg PO TID PRN (Reason: Pain) hydroxyzine HCl 50 mg tablet 50 mg PO TID PRN (Reason: Anxiety) lisinopril 10 mg tablet 10 mg PO DAILY melatonin 5 mg capsule 5 mg PO BEDTIME PRN (Reason: Sleep) prazosin 5 mg capsule 5 mg PO DAILY tamsulosin 0.4 mg capsule 0.4 mg PO DAILY sildenafil 100 mg tablet 100 mg PO DAILY PRN (Reason: Sexual Activity) Rx Instructions: administer 30 minutes to 4 hours before activity promethazine 25 mg suppository 25 mg OR Q6H PRN (Reason: nausea and vomiting) Qty: 12 0RF ondansetron 8 mg tablet,disintegrating 8 mg PO Q6H Qty: 14 0RF Rx Instructions: Take 1/2-1 tab every 6 hours as needed for nausea and vomiting diltiazem HCl 180 mg capsule,extended release 24hr 360 mg PO DAILY omeprazole 40 mg capsule,delayed release(DR/EC) 40 mg PO QAM albuterol sulfate 90 mcg/actuation HFA aerosol inhaler 2 puff INHALATION Q4H PRN (Reason: Wheezing) Discharge Orders: Discharge Order (Routine); Ordered 01/30/25 Ordered By: Chivo Olivares Referrals: Parvez Quintanilla MD [Physician] - 08/22/24 8:15 am () Discharge Diet: Advance as tolerated and GI Soft Discharge Activity: Resume usual activity and Increase activity as tolerated Patient Instructions: Metoprolol (By mouth), Hydromorphone (By mouth), GERD (Gastroesophageal Reflux Disease) (DC), Acute Wound Care (DC), Laparoscopic Cholecystectomy (DC), GI Post Discharge Instructions w/ Anesthesia, Opioid Safety, Post Anesthesia Care Activity Restrictions/Additional Instructions: 1. Take medications as prescribed. 2. Advance diet as tolerated. 3. No driving operating machinery while on hydromorphone. 4. Keep scheduled clinic appointment with cardiology to establish care for atrial fibrillation. 5. Follow-up with PCP within 1 week. 6. Follow-up in general surgery clinic. Discharge Attestations Time Spent in Discharge Care*: greater than 30 min Quality Metrics Clinical Quality Measures [ No reported AMI, CVA or VTE this stay] Coding Level of Care Code Acute Code for Chg Fwd Diagnoses Abnormal biliary HIDA scan R94.8
--- NOTE | 2024-08-10 13:29 | PC.NURSE ---
Discharge Note Patient discharged to home via private vehicle accompanied by self. Discharge instructions reviewed with patient and/or service liaison representative. Mobile pharmacy medications and/or prescriptions provided. Belongings/home medications returned.
[2024-08-10 13:32] VITALS: BP 130/83; PULSE 71; RESP 17; TEMP 36.8; O2SAT 97
== END 2024-08-10 13:36 | disposition home or self-care (01) | DRG 419 ==
LOC: ER 13:10 → MEDSURG 20:01
PROVIDERS: Family Medicine; Surgery; Admitting Provider Student in an Organized Health Care Education/Training Program; Emergency Provider Physician Assistant Medical; Visit Provider Internal Medicine
PROC: 0FT44ZZ Resection of Gallbladder, Percutaneous Endoscopic Approach (ICD-10-PCS; CPT 47562; principal; 2024-08-09 14:00)
DX: K82.8 Other specified diseases of gallbladder (principal); I10 Essential (primary) hypertension; I48.0 Paroxysmal atrial fibrillation; N40.0 Benign prostatic hyperplasia without lower urinary tract symptoms; I16.0 Hypertensive urgency; E78.5 Hyperlipidemia, unspecified; K21.9 Gastro-esophageal reflux disease without esophagitis; Z87.891 Personal history of nicotine dependence
CPT/HCPCS: 36415; 36416; 70450; 70496; 70498; 74150; 76705; 78227; 80053; 80061; 80306; 81001; 82009; 82607; 82746; 82962; 83036; 83540; 83550; 83605; 83690; 83735; 84100; 84145; 84443; 84484; 85025; 85378; 86403; 87506; 88304; 93005; 94664; 96372; A4216; A9537; J0360; J0690; J0780; J1100; J1171; J1630; J1885; J2060; J2270; J2405; J2470; J2550; J2704; J3010; J3480; J3490; J7030; J7042

== ENCOUNTER → 2024-08-22 07:44 | Outpatient (BNVA) | payer OTHER, SELFPAY | PROVIDERS: PCP Nurse Practitioner; Visit Provider Surgery | DX: R10.9 Unspecified abdominal pain (principal); R11.2 Nausea with vomiting, unspecified; Z98.890 Other specified postprocedural states | CPT/HCPCS: 99024 ==

== ENCOUNTER → 2024-10-31 15:02 | Outpatient (BNVA) | payer OTHER, SELFPAY | PROVIDERS: PCP Nurse Practitioner; Visit Provider Orthopaedic Surgery | DX: M54.2 Cervicalgia (principal) | CPT/HCPCS: 99203 ==

== ENCOUNTER 2024-12-29 10:09 | Inpatient (IN) | payer OTHER, SELFPAY ==
[2024-12-29] VITALS (17 sets, daily range): BP systolic 107–164; BP diastolic 78–105; PULSE 94–157; RESP 14–18; TEMP 36.4–36.9; O2SAT 93–98; BMI 38.9
--- NOTE | 2024-12-29 10:18 | ECG_ITS ---
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 Measurements Intervals [place] Rate: 149 P: 0 MI: 0 QRS: 63 QRSD: 77 T: 57 QT: 270 QTc: 426 Interpretive Statements ATRIAL FIBRILLATION WITH RAPID VENTRICULAR RESPONSE POSSIBLE RIGHT VENTRICULAR CONDUCTION DELAY [RSR (QR) IN V1/V2] ABNORMAL RHYTHM ECG Compared to ECG 08/08/2024 08:31:58 T-wave abnormality no longer present Electronically Signed On 12-31-2024 19:39:59 CDT by Deepti Sadler M.D. [id number]
--- NOTE | 2024-12-29 10:31 | XR_ITS ---
WS: [id number] Portable AP upright chest, 12/29/2024 Clinical Data: dyspnea/cough Comparison: Portable chest, 08/02/2024 Findings: No nodules, masses or effusions are seen. The heart is normal. The pulmonary vascularity is not increased. No pneumonia or pneumothorax is seen. Monitor leads are on the chest wall. XR/XR chest 1V portable [id number] Impression: Negative chest.
--- NOTE | 2024-12-29 10:33 | W.ED.ARRPALP ---
HPI - Arrhythmia/Palpitations General: Chief Complaint: Arrhythmia/Palpitations Stated Complaint: [facility] Time Seen by Provider: 12/29/24 10:27 History of Present Illness: 54-year-old male presents emergency room with complaint of rapid heart rate. [facility] and noted to be tachycardic and sent to the emergency room. He denies any chest pain. He did not take his Cardizem this morning no recent medication changes he is not on any anticoagulation Related Data Home Medications ?Medication ?Instructions ?Recorded ?Confirmed aripiprazole 20 mg tablet (Abilify) 20 mg PO DAILY 03/29/24 10/31/24 atorvastatin 10 mg tablet 10 mg PO DAILY 03/29/24 10/31/24 baclofen 10 mg tablet 10 mg PO TID PRN Pain 03/29/24 10/31/24 gabapentin 600 mg tablet 600 mg PO BID 03/29/24 10/31/24 hydroxyzine HCl 50 mg tablet 50 mg PO TID PRN Anxiety 03/29/24 10/31/24 lisinopril 10 mg tablet 10 mg PO DAILY 03/29/24 10/31/24 melatonin 5 mg capsule 5 mg PO BEDTIME PRN Sleep 03/29/24 10/31/24 prazosin 5 mg capsule 5 mg PO DAILY 03/29/24 10/31/24 sildenafil 100 mg tablet 100 mg PO DAILY PRN Sexual Activity 03/29/24 10/31/24 tamsulosin 0.4 mg capsule 0.4 mg PO DAILY 03/29/24 10/31/24 albuterol sulfate 90 mcg/actuation 2 puff inhalation Q4H PRN Wheezing 08/05/24 10/31/24 aerosol inhaler diltiazem HCl 180 mg 360 mg PO DAILY 08/05/24 10/31/24 capsule,extended release 24 hr omeprazole 40 mg capsule,delayed 40 mg PO QAM 08/05/24 10/31/24 release Previous Rx's ?Medication ?Instructions ?Recorded ondansetron 8 mg disintegrating 8 mg PO Q6H #14 tabs 06/23/24 tablet promethazine 25 mg rectal 25 mg NE Q6H PRN nausea and 06/23/24 suppository vomiting #12 ea Allergies Allergy/AdvReac Type Severity Reaction Status Date / Time clonazepam Allergy ADR-Irritab Verified 10/31/24 16:03 le Opioids - Morphine Analogues Allergy ADR-Nausea Verified 10/31/24 16:03 Review of Systems Const: Denies: fever(s) or chills Card: Reports: palpitations and irregular heart rhythm; Denies: chest pain Resp: Denies: dyspnea GI: Denies: abdominal pain : Denies: dysuria, urinary frequency or urinary urgency Musc: Denies: neck pain or back pain Skin/Breast: Denies: rash PFSH ED PFSH: Medical History Marijuana use Biliary dyskinesia GERD (gastroesophageal reflux disease) Hypertensive urgency A-fib BPH (benign prostatic hyperplasia) Hypertension Hyperlipidemia Surgical History History of surgery on arm right arm -bicep Hx of colonoscopy 3 years ago- [place] History of hernia surgery 04/19/24 Open umbilical hernia repair using dura mesh- Dr Herrera Social History Smoking and tobacco/nicotine status: never used tobacco/nicotine Alcohol intake: never Physical Exam Const: COMMON NORMALS: no acute distress GENERAL APPEARANCE: cooperative and comfortable ORIENTATION/CONSCIOUSNESS: Yes awake, Yes oriented to person, Yes oriented to place and Yes oriented to time HENMT: COMMON NORMALS: normocephalic, atraumatic and hearing grossly normal bilaterally HEAD & SCALP: normocephalic and atraumatic Resp: COMMON NORMALS: normal respiratory effort, No retractions, No use of accessory muscles and clear to auscultation bilaterally AUSCULTATION: clear to auscultation bilaterally Cardio: COMMON NORMALS: No murmurs present (Cardio) RATE: tachycardic RHYTHM: abnormal rhythm irregularly irregular GI: COMMON NORMALS: Soft to palpation and No hepatosplenomegaly present AUSCULTATION: Yes normoactive bowel sounds PALPATION: Yes Soft to palpation, No Tenderness to palpation present (GI), No Guarding due to palpation present (GI) and Yes No hepatosplenomegaly present Extremity: COMMON NORMALS: normal to inspection, capillary refill normal, no clubbing, cyanosis or edema, no calf tenderness and no pedal edema Neuro: SENSORIUM/ORIENTATION: Yes oriented to person, Yes oriented to place and Yes oriented to time Skin: COMMON NORMALS: no rashes or lesions noted GENERAL SKIN EXAM: no rashes or lesions noted Course Vital Signs: Vital signs: Vital Signs Temperature 97.5 F L 12/29/24 10:15 Pulse Rate 94 12/29/24 11:45 Respiratory Rate 17 12/29/24 11:45 Blood Pressure 143/87 12/29/24 11:45 Pulse Oximetry 96 12/29/24 11:45 Oxygen Delivery Me thod Room Air 12/29/24 11:45 MDM - Arrhythmia/Palpitations Medical Decision Making Patient was given IV push Cardizem and started on a drip which was titrated up. He was also given his oral Cardizem despite this. To continue titrating up. His rate control improved slightly over time. Is also noted he has a mildly acute kidney injury and polycythemia. He is given IV fluids will place on observation discussed with Dr. Patino orders written Medical Records I reviewed the patient's medical records. Lab Data I reviewed the patient's lab results. 12/29/24 10:34 12/29/24 10:34 Radiology Impressions Chest X-Ray 12/29/24 10:31 Impression: Negative chest. Laboratory Results WBC 8.29 10^3/uL (3.29-11.43) 12/29/24 10:34 RBC 5.96 10^6/uL (3.85-5.65) H 12/29/24 10:34 Hgb 17.60 g/dL (11.27-16.99) H 12/29/24 10:34 Hct 50.7 % (37-53) 12/29/24 10:34 MCV 85.1 fl (82-101) 12/29/24 10:34 MCH 29.5 pg (27-33) 12/29/24 10:34 MCHC 34.7 g/dL (30-55) 12/29/24 10:34 RDW 12.4 % (12.1-15.1) 12/29/24 10:34 Plt Count 310 10^3/cmm (157-399) 12/29/24 10:34 MPV 11.3 fL (7.4-10.4) H 12/29/24 10:34 Neut % (Auto) 73.6 % 12/29/24 10:34 Lymph % (Auto) 17.1 % 12/29/24 10:34 Avery % (Auto) 7.4 % 12/29/24 10:34 Eos % (Auto) 0.7 % 12/29/24 10:34 Baso % (Auto) 1.0 % 12/29/24 10:34 Neut # (Auto) 6.10 10^3/uL (1.8-7.7) 12/29/24 10:34 Lymph # (Auto) 1.4 10^3/uL (0.8-4.8) 12/29/24 10:34 Avery # (Auto) 0.6 10^3/uL (0.2-0.9) 12/29/24 10:34 Eos # (Auto) 0.1 10^3/uL (0.0-0.8) 12/29/24 10:34 Baso # (Auto) 0.1 10^3/uL (0.0-0.1) 12/29/24 10:34 Nucleated RBC % (auto) 0 % 12/29/24 10:34 Nucleated RBCs # 0.0 /100WBC 12/29/24 10:34 Sodium 137 mmol/L (136-145) 12/29/24 10:34 Potassium 4.5 mmol/L (3.5-5.1) 12/29/24 10:34 Chloride 102 mmol/L (98-107) 12/29/24 10:34 Carbon Dioxide 21 mmol/L (22-29) L 12/29/24 10:34 Anion Gap 18.5 (5-19) 12/29/24 10:34 BUN 9 mg/dL (6-20) 12/29/24 10:34 Creatinine 1.5 mg/dL (0.7-1.2) H 12/29/24 10:34 GFR Calculation 49.1 mL/min (90-130) L 12/29/24 10:34 Glucose 104 mg/dL (65-115) 12/29/24 10:34 Calculated Osmolality 283 mOsm/kg (285-295) L 12/29/24 10:34 Calcium 9.6 mg/dL (8.5-10.5) 12/29/24 10:34 Total Bilirubin 0.9 mg/dL (0.15-1.2) 12/29/24 10:34 AST 32 U/L (0-40) 12/29/24 10:34 ALT 51 U/L (0-41) H 12/29/24 10:34 Alkaline Phosphatase 67 U/L (40-130) 12/29/24 10:34 Total Protein 8.0 g/dL (6.6-8.7) 12/29/24 10:34 Albumin 4.6 g/dL (3.5-5.2) 12/29/24 10:34 Globulin 3.4 g/dL (1.3-4.6) 12/29/24 10:34 All radiology interpretation(s) finalized by discharge Discharge Plan Discharge Patient Disposition: Placed in Observation Clinical Impression: Atrial fibrillation with rapid ventricular response, Acute kidney injury, Polycythemia Coding Level of Care Code ED Senior Formulation Scientist for Leonid Alva
[2024-12-29] MEDS: dilTIAZem 5 mg/mL SDV 5 mL 10 MG IVP (10:40)
[2024-12-29 10:41] LABS: Basophils # 0.1 10^3/uL (0.0-0.1); Eosinophils # 0.1 10^3/uL (0.0-0.8); Eosinophils % 0.7 %; Hematocrit 50.7 % (37-53); Lymphocytes # 1.4 10^3/uL (0.8-4.8); Lymphocytes % 17.1 %; Mean Corpuscular HGB Conc 34.7 g/dL (30-55); Mean Corpuscular Hemoglobin 29.5 pg (27-33); Mean Corpuscular Volume 85.1 fl (82-101); Mean Platelet Volume 11.3 fL (7.4-10.4); Monocytes # 0.6 10^3/uL (0.2-0.9); Monocytes % 7.4 %; Neutrophils % 73.6 %; Nucleated Red Blood Cells % 0 %; Platelet Count 310 10^3/cmm (157-399); Red Blood Count 5.96 10^6/uL (3.85-5.65); Red Cell Distribution Width 12.4 % (12.1-15.1); White Blood Count 8.29 10^3/uL (3.29-11.43)
[2024-12-29] MEDS: dilTIAZem 100 MG in sodium chloride 0.9% (add-van) 100 ML IV (10:41)
[2024-12-29 10:56] LABS: Alanine Aminotransferase 51 U/L (0-41); Albumin Level 4.6 g/dL (3.5-5.2); Alkaline Phosphatase 67 U/L (40-130); Anion Gap 18.5 (5-19); Aspartate Amino Transferase 32 U/L (0-40); Blood Urea Nitrogen 9 mg/dL (6-20); Calcium 9.6 mg/dL (8.5-10.5); Carbon Dioxide 21 mmol/L (22-29); Chloride 102 mmol/L (98-107); Creatinine Clr Calc Pharmacy 70.3993; Globulin 3.4 g/dL (1.3-4.6); Glomerular Filtration Rate 49.1 mL/min (90-130); Glucose 104 mg/dL (65-115); Osmolality Calculated 283 mOsm/kg (285-295); Potassium 4.5 mmol/L (3.5-5.1); Sodium 137 mmol/L (136-145); Total Bilirubin 0.9 mg/dL (0.15-1.2)
[2024-12-29] MEDS: dilTIAZem ER (24HR) 180 mg Capsule 360 MG PO (11:05)
[2024-12-29] MEDS: sodium chloride 0.9% 1,000 ML 999 ML IV (12:45)
--- NOTE | 2024-12-29 13:14 | PM.HP ---
Providers/Chief Complaint Primary Care Provider: MAGED Esparza Chief Complaint: Afib (Sent by ID) History of Present Illness Carlos Alberto Uriarte is a 54 year old male with atrial fibrillation, hypertension, history of cholecystectomy, who presents to [facility] due to feeling unwell, and tachycardia, A-fib with RVR. Currently patient alert oriented x 3, following all commands, heart rates in the 120s, A-fib with RVR on a Cardizem drip, he tells me that he has not been feeling well for the last day, no fevers, does report chills, no cough, no dysuria, no hematuria, no abdominal pain, no diarrhea, no chest pain but does report chest palpitations, does report increased lower extreme edema does report shortness of breath, he followed up with his ID physician today, was diagnosed with A-fib with RVR and sent to [facility] for further evaluation Review of Systems Const: Denies: fever(s) Card: Denies: chest pain Resp: Reports: dyspnea Medications/Allergies Home Medications ?Medication ?Instructions ?Recorded ?Confirmed ?Last Taken ?Type aripiprazole 20 mg tablet (Abilify) 20 mg PO DAILY 03/29/24 10/31/24 08/02/24 History atorvastatin 10 mg tablet 10 mg PO DAILY 03/29/24 10/31/24 08/02/24 History baclofen 10 mg tablet 10 mg PO TID PRN Pain 03/29/24 10/31/24 Unknown History gabapentin 600 mg tablet 600 mg PO BID 03/29/24 10/31/24 08/02/24 History hydroxyzine HCl 50 mg tablet 50 mg PO TID PRN Anxiety 03/29/24 10/31/24 08/02/24 History lisinopril 10 mg tablet 10 mg PO DAILY 03/29/24 10/31/24 08/02/24 History melatonin 5 mg capsule 5 mg PO BEDTIME PRN Sleep 03/29/24 10/31/24 08/02/24 History prazosin 5 mg capsule 5 mg PO DAILY 03/29/24 10/31/24 08/02/24 History sildenafil 100 mg tablet 100 mg PO DAILY PRN Sexual Activity 03/29/24 10/31/24 04/18/24 10:00 History tamsulosin 0.4 mg capsule 0.4 mg PO DAILY 03/29/24 10/31/24 08/02/24 History ondansetron 8 mg disintegrating 8 mg PO Q6H #14 tabs 06/23/24 10/31/24 Unknown Rx tablet promethazine 25 mg rectal 25 mg NC Q6H PRN nausea and 06/23/24 10/31/24 Unknown Rx suppository vomiting #12 ea albuterol sulfate 90 mcg/actuation 2 puff inhalation Q4H PRN Wheezing 08/05/24 10/31/24 Unknown History aerosol inhaler diltiazem HCl 180 mg 360 mg PO DAILY 08/05/24 10/31/24 08/02/24 History capsule,extended release 24 hr omeprazole 40 mg capsule,delayed 40 mg PO QAM 08/05/24 10/31/24 08/02/24 History release Allergies Allergy/AdvReac Type Severity Reaction Status Date / Time clonazepam Allergy ADR-Irritab Verified 10/31/24 16:03 le Opioids - Morphine Analogues Allergy ADR-Nausea Verified 10/31/24 16:03 PFSH Acute PFSH: Medical History Marijuana use Biliary dyskinesia GERD (gastroesophageal reflux disease) Hypertensive urgency A-fib BPH (benign prostatic hyperplasia) Hypertension Hyperlipidemia Surgical History History of surgery on arm right arm -bicep Hx of colonoscopy 3 years ago- [place] History of hernia surgery 04/19/24 Open umbilical hernia repair using dura mesh- Dr Herrera Social History Smoking and tobacco/nicotine status: never used tobacco/nicotine Alcohol intake: never Vitals/I&O/Wt Last Vital Signs Temp 97.5 F L 12/29/24 10:15 Pulse 109 H 12/29/24 13:00 Resp 17 12/29/24 11:45 BP 129/105 12/29/24 13:00 Pulse Ox 97 12/29/24 13:00 O2 Del Method Room Air 12/29/24 13:00 12/28/24 12/29/24 12/29/24 22:59 06:59 14:59 Intake Total 16.833 / 16.833 Balance 16.833 / 16.833 Weight last 48 hrs Weight 113.398 kg Physical Exam Const: COMMON NORMALS: no acute distress and patient oriented x3 Resp: COMMON NORMALS: normal respiratory effort, No retractions, No use of accessory muscles and clear to auscultation bilaterally AUSCULTATION: clear to auscultation bilaterally Cardio: COMMON NORMALS: no JVD, regular rate, regular rhythm, S1 normal heart sound present and S2 normal heart sound present RATE: tachycardic RHYTHM: abnormal rhythm irregularly irregular HEART SOUNDS: S1 normal heart sound present and S2 normal heart sound present GI: COMMON NORMALS: Normal to inspection, nondistended, normoactive bowel sounds present, Soft to palpation and non-tender Extremity: COMMON NORMALS: no calf tenderness NARRATIVE EXTREMITY EXAM: 1+ pedal edema Neuro: COMMON NORMALS: patient oriented x3, CN's II-XII intact bilaterally and moves all extremities Psych: COMMON NORMALS: mental status grossly normal Data 12/29/24 10:34 12/29/24 10:34 A&P Assessment and plan (1) Atrial fibrillation with rapid ventricular response: Plan - Cardizem drip - Will wean to p.o. Cardizem once heart rates are more under control - Cardiac echo - Lasix 40 IV for fluid overload - CHADS2 Vasc is 1 (2) CHF exacerbation: - 40 mg IV push Lasix PDMP PDMP Reviewed: Not Reviewed Attestations Medical Necessity Statement*: Patient requires hospitalization, inpatient, greater than 2 midnights for A-fib with RVR Diagnoses Atrial fibrillation with rapid ventricular response I48.91 CHF exacerbation I50.9
[2024-12-29 13:18] LABS: INR 0.94 (0.8-1.2)
[2024-12-29 13:32] LABS: Procalcitonin 0.07 ng/mL (0-0.5)
--- NOTE | 2024-12-29 13:36 | PC.NURSE ---
attempted report at 1308, was told no one was available to take report.
--- NOTE | 2024-12-29 14:19 | ECG_ITS ---
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 Measurements Intervals [place] Rate: 116 P: 0 FL: 0 QRS: 58 QRSD: 78 T: 49 QT: 289 QTc: 403 Interpretive Statements ATRIAL FIBRILLATION WITH RAPID VENTRICULAR RESPONSE POSSIBLE RIGHT VENTRICULAR CONDUCTION DELAY [RSR (QR) IN V1/V2] ABNORMAL RHYTHM ECG Compared to ECG 08/08/2024 08:31:58 T-wave abnormality no longer present Electronically Signed On 12-31-2024 19:29:46 CDT by Deepti Sadler M.D. [email or web address] [id number]
[2024-12-29] MEDS: FUROsemide 10 mg/mL SDV 4mL 40 MG IVP (14:21)
[2024-12-29] MEDS: enoxaparin 40 mg/0.4 mL Syringe SUBCUT (14:26)
[2024-12-29] MEDS: aspirin 81 mg EC Tablet PO (14:26)
[2024-12-29] MEDS: pantoprazole 40 mg SDV IVP (14:26)
[2024-12-29 14:31] LABS: Estmated Average Glucose 117; Hemoglobin A1C 5.7 % (4.0-6.0)
[2024-12-29 14:38] LABS: Thyroid Stimulating Hormone 3.11 uIU/mL (0.27-4.20)
--- NOTE | 2024-12-29 14:46 | PC.NURSE ---
received from er via stretcher at 1410.report received.pt is alert and oriented x 4.denies pain at present.afib on monitor at 90's - 110.on cardizem drip at 12.5 mg per hour.oriented to room environment.instructed to notify staff for any chest pain,sob,or for any concerns at all.pt verb understanding of instruction
--- OUTSIDE RECORDS SUMMARY | 2024-12-29 15:44 | XMS_ITS | Patient Health Record ---
Author Organization [facility] Address [address] [place] [address] Care Team Providers Care Inductor Tester Name Role Phone VeroAlice POWELL Primary Care Provid er Unavailable Donna Ace Unavailable [phone] Howard Gaspar Unavailable [phone] Leila Rosenbaum Unavailable Allergies Allergen (clinical drug ingredient) Drug/Non Drug Allergy documented on EMR Reaction Allergy Type Onset Date Status clonazepam clonazePAM Unknown Drug Allergy Activ e morphine Morphine Unknown Drug Allergy Active Results Component Value Reference Range Notes Fluoro Needle For Placement - Spine [id number] Reviewed date:09/05/2024 01:56:05 PM Interpretation: Performing Lab: Notes/Report: Echo with and without Contra st [id number] Reviewed date:09/27/2024 11:45:37 AM Interpretation: Performing Lab: Notes/Report: [id number] Schedule Confirmation (Not y et reviewed by provider) Interpretation: Performing Lab: Notes/Report: MRI Cervical Spine w/o Cont MRI Cervical Spine w/o Cont- [id number] Reviewed date:09/25/2024 10:56:48 AM Interpretation: Performing Lab: Notes/Report: [id number] Schedule Confirmation Reviewed date:10/09/2024 02:33:02 PM Interpretation: Performing Lab: Notes/Report: MRI Cervical Spine w/o Cont Schedule Confirmation Reviewed date:10/09/2024 02:32:55 PM Interpretation: Performing Lab: Notes/Report: MRI Cervical Spine w/o Cont Schedule Confirmation Reviewed date:10/25/2024 04:10:59 PM Interpretation: Performing Lab: Notes/Report: CT Cardiac Scoring Diagnostic RAD Schedule Confirmation Reviewed date:10/25/2024 04:10:59 PM Interpretation: Performing Lab: Notes/Report: CT Cardiac Scoring Diagnostic RAD Schedule Confirmation Reviewed date:10/25/2024 04:10:59 PM Interpretation: Performing Lab: Notes/Report: CT Cardiac Scoring Diagnostic RAD CT Cardiac Scoring Diagnosti [id number] Reviewed date:12/01/2024 12:18:49 PM Interpretation: Performing Lab: Notes/Report: See Below For Report CT Cardiac Scoring Diagnostic Diagnosis Description: Paroxysmal atrial fibrillation Read See Below For Report Schedule Confirmation Reviewed date:12/01/2024 12:18:49 PM Interpretation: Performing Lab: Notes/Report: CT Cardiac Scoring Diagnostic RAD zzzCT Cardiac Scoring Diagno stic RAD Reviewed date:12/01/2024 12:18:49 PM Interpretation: Performing Lab: Notes/Report: See Below For Report CT Cardiac Scoring Diagnostic RAD Read See Below For Report Schedule Confirmation Reviewed date:10/27/2024 08:43:32 AM Interpretation: Performing Lab: Notes/Report: CT Cardiac Scoring Diagnostic RAD zzzCT Cardiac Scoring Diagno stic RAD Reviewed date:12/01/2024 12:18:56 PM Interpretation: Performing Lab: Notes/Report: [id number] Schedule Confirmation Reviewed date:09/18/2024 08:41:55 AM Interpretation: Performing Lab: Notes/Report: CT Cardiac Scoring Diagnostic Schedule Confirmation Reviewed date:10/09/2024 02:33:11 PM Interpretation: Performing Lab: Notes/Report: MRI Cervical Spine w/o Cont- [id number] Reviewed date:09/25/2024 10:56:54 AM Interpretation: Performing Lab: Notes/Report: See Below For Report Technique: Sagittal T1, T2 and STIR and axial T1 and T2-weighted Read See Below For Report CT Cardiac Scoring Diagnosti [id number] Reviewed date:12/01/2024 12:18:56 PM Interpretation: Performing Lab: Notes/Report: [id number] Echo Complete [id number] Reviewed date:09/13/2024 12:13:07 PM Interpretation: Performing Lab: Notes/Report: Schedule Confirmation Reviewed date:11/15/2024 04:26:07 PM Interpretation: Performing Lab: Notes/Report: CT Cardiac Scoring Diagnostic RAD Reason For Referral Reason Cervical stenosis Diagnosis 1 Chronic pain syndrom e (G89.4) Referral Organization [facility] Referring Provider First Name Howard Referring Provider Last Name Chasity Referring Provider Speciality Intervcarlos onal Pain Medicine Referred Provider Fransico Shaikh Referred Provider Specialty Orthopedic S urgery Referral Priority Routine Reason APPT 08/23/24 CARDI OLOGY/ EVAL & TREAT/ 1 LHC Diagnosis 1 Other persistent atr ial fibrillation (I48.19) Referring Provider First Name [place] Stevan ff Referring Provider Last Name ND Referring Provider Speciality ND Affairs Referred Organization [facility] Referred Provider Donna Ace Referred Address [address] [place] [address],[facility],[place],[address], Referred Provider Specialty Cardiology Referral Priority Routine Reason Cervical stenosis Diagnosis 1 Cervical spondylosis with radiculopathy (M47.22) Referral Organization [facility] Referring Provider First Name Howard Referring Provider Last Name Chasity Referring Provider Speciality Bertha onal Pain Medicine Referred Provider Fransico Shaikh Referred Provider Specialty Orthopedic S urgery Referral Priority Routine Medications Medication SIG (Take, Route, Frequency, Duration) Notes Start Date End Date Status Sertraline HCl 100 MG 1 tablet Orally On a day Active Prazosin HCl 5 MG 2 capsule Orally Onc e a day 08/03/2024 Active Omeprazole 40 MG 1 capsule 1/2 to 1 h our before morning meal Orally Once a day Active Metoprolol Succinate 50 MG 1 capsule Orally Once a day Active Crestor 10 MG 1 tablet Orally Once a day for 90 days 12/05/2024 Active Lisinopril 10 MG 1 tablet Orally Once a day Active Aspirin 325 MG 1 tablet Orally Once a day for 90 days 09/13/2024 Active hydrOXYzine Pamoate 50 MG 1 capsule at bedtime as needed Orally Once a day As needed Active Gabapentin 600 MG 2 tablets orally onc e daily Active dilTIAZem HCl ER 180 MG 1 capsule Orally Once a day Active Albuterol Sulfate HFA 108 (90 Base) MCG/ACT INHALE 2 PUFFS BY MOUTH EVERY 4 HOURS NEEDED FOR WHEEZING Inhalation for 17 Days Not-Taking ARIPiprazole 20 MG 1 tablet Orally Once a day Active Tamsulosin HCl 0.4 MG 2 capsules orally once a day Active Social History Tobacco Use: Social History Observation Description Date Details (start date - stop date) Unknown Tobacco Control (Standard) Question Answer Notes Tobacco use: Uses tobacco in other forms Additional Findings: Tobacco user e-cigarette Section Notes: Patient is on disability Patient is on disability Admits tobacco products - vape daily (once an hr roughly) Admits marijuana use daily Denies alcohol Admits caffeine - 200mg daily Patient is on disability Admits tobacco products - vape daily (once an hr roughly) Admits marijuana use daily Denies alcohol Admits caffeine - 200mg daily Patient is on disability Admits tobacco products - vape daily (once an hr roughly) Admits marijuana use daily Denies alcohol Admits caffeine - 200mg daily Patient is on disability Problems Problem Type SNOMED Code ICD Code Onset Dates Problem Status W/U Status Risk Notes Problem Left ventricular outflow obstruction (Q24.8) Active confirmed Problem 14836421 Abnormality of gait and mobility (R26.9) Active confirmed Problem Tobacco use (032424034) Vapes nicotine containing substance (Z72.0) Active confirmed Problem Atrial fibrillation (09696993) Paroxysmal A-fib (I48.0) Active confirmed Problem 279788564 Cervical spondylosis with radiculopathy (M47.22) Active confirmed Problem Mitral regurgitation (84495010) Mitral regurgitation (I34.0) Active confirmed Problem 09042236 DDD (degenerativ e disc disease), cervical (M50.30) Active confirmed Problem 293102214 Lumbosacral spondylosis with radiculopathy (M47.27) Active confirmed Problem Dyspnea (705568639) SOB (shortness of breath) (R06.02) Active confirmed Problem 64674260 Cervical radiculopathy (M54.12) Active confirmed Problem Essential hypertension (22256384) Essential hypertension (I10) Active confirmed Problem Persistent atrial fibrillation (disorder) (533108597) Other persistent atrial fibrillation (I48.19) Active confirmed Problem Rheumatic mitral stenosis (20728052) Rheumatic mitral stenosis (I05.0) Active confirmed Problem 355139189 Chronic pain syndrome (G89.4) Active confirmed Vital Signs Heart Rate 64 /min 11/13/2024 Height-cm 172.72 cm 11/13/2024 Oximetry 98 % 11/13/2024 Blood pressure diastolic 82 mm Hg 11/13/2024 Weight-kg 119.02 kg 11/13/2024 Height 68 in 11/13/2024 Blood pressure systolic 134 mm Hg 11/13/2024 Weight 262.4 lbs 11/13/2024 BMI 39.89 kg/m2 11/13/2024 Encounters Encounter Location Date Provider Diagnosis [facility] [address] [place] [address], [place] [address] 08/03/2024 Donna Ace [facility] [address] [place] [address] 08/23/2024 Howard Lopezanjel [facility] [address] [place] [address], [place] [address] 09/26/2024 Donna Ace Rheumatic mitral stenosis I05.0 [facility] [address] [place] [address], [place] [address] 10/03/2024 Udayidumberto Ace [facility] [address] [place] [address] 10/17/2024 Howard Lopezanjel [facility] [address] [place] [address], [place] [address] 11/29/2024 Udayidumberto Harmonshi [facility] [place] [address] [place] [address] 09/27/2024 Howard Gaspar Chronic pain syndrom e G89.4 ; DDD (degenerative disc disease), cervical M50.30 ; Cervical spondylosis with radiculopathy M47.22 ; Degeneration of intervertebral disc of lumbar region with discogenic back pain and lower extremity pain M51.362 ; Lumbosacral spondylosis with radiculopathy M47.27 and Abnormality of gait and mobility R26.9 [facility] [place] [address] [place] [address] 07/26/2024 Howard Gaspar Chronic pain syndrom e G89.4 ; DDD (degenerative disc disease), cervical M50.30 ; Cervical spondylosis with radiculopathy M47.22 ; Degeneration of intervertebral disc of lumbar region with discogenic back pain and lower extremity pain M51.362 ; Lumbosacral spondylosis with radiculopathy M47.27 and Abnormality of gait and mobility R26.9 [facility] [address] [place] [address], [place] [address] 09/13/2024 Donna Ace Paroxysmal A-fib I48.0 ; Left ventricular outflow obstruction Q24.8 ; Essential hypertension I10 ; Rheumatic mitral stenosis I05.0 and Vapes nicotine containing substance Z72.[address] [place] [address] 11/13/2024 Akihiro Malka Paroxysmal A-fib I48.0 ; SOB (shortness of breath) R06.02 ; Essential hypertension I10 ; Left ventricular outflow obstruction Q24.8 ; Mitral regurgitation I34.0 and Vapes nicotine containing substance Z72.[address] [place] [address] 09/26/2024 [facility] [address] [place] [address] 09/05/2024 Howard Gaspar Cervical spondylosis with radiculopathy M47.22 [facility] [address] [place] [address] 09/28/2024 Leila vega Cervical radiculopathy M54.12 Assessments Encounter Date Diagnosis (ICD Code) Assessment Notes Treatment Notes Treatment Clinical Notes Section Notes 07/26/2024 Chronic pain syndrome (ICD-10 - G89.4) This is a pleasant gentleman I hadn't seen since March. We had referred him for a cervical MRI but it took him a while to get it here in [place]. It sounded like he had some issues with illnesses as well and he ended up in the hospital twice. We discussed the results of the MRI and he has multi-level degeneration with stenosis and we spoke about treatment options. He has done well with cervical rhizotomies in the past but this appears more radicular in nature at this point. For now, we discussed a cervical epidural and he is interested so we will get that scheduled in the near future and I will also get him in to see a surgeon. He stated he would like to see someone that operates here in [place] so we will get him in with Dr. Shaikh here locally. Refer to Dr. Shaikh for cervical stenosis and degeneration Schedule DELPHINE RECOMMEND THERAPEUTIC CERVICAL EPIDURAL STEROID INJECTION, levels C7-T1 The patient reports overall 50% improvement in function and decrease in pain for greater than one month from previous diagnostic JUN. The patient also reports improvement in tolerance to activities which generally cause pain. Based on the results of previous diagnostic UJN, a therapeutic JUN is recommended. Expectation from a successful therapeutic epidural steroid injection is at least 50-70% relief of pain from baseline and evidence of improved function for at least six to eight weeks after delivery. The goal of epidural steroid injections is to reduce pain and inflammation, restoring range of motion and, thereby, facilitating progress in more active treatment programs, and avoiding surgery. The procedure and risks were discussed with the patient including but not limited to infection, bleeding, neurological complications, side effects from medications, no change in pain, worsening of pain, or even . We also discussed conservative options, surgical options, and medical management with patient as well. The patient indicates understanding and wishes to proceed with the recommended treatment approach. The patient was given written information about the procedure and all questions were answered. 07/26/2024 DDD (degenerative disc disease), cervical (ICD-10 - M50.30) 09/05/2024 Cervical spondylosis with radiculopathy (ICD-10 - M47.22) 09/13/2024 Left ventricular outflow obstruction (ICD-10 - Q24.8) Based on the echocardiogram back in June 2024, there was evidence of flow acceleration at the level of LVOT V-max up to close to 3 m/s. No murmur today His heart rate is much better today Continue metoprolol diltiazem and repeat echocardiogram. EKG in office today indication is A-fib hypertension findings are sinus rhythm with PAC heart rate of 55 so sinus bradycardia 09/26/2024 Rheumatic mitral stenosis (ICD-10 - I05.0) 09/27/2024 Chronic pain syndrome (ICD-10 - G89.4) I had a nice visit with the patient today regarding his chronic pain issues. He says the cervical epidural worked for a couple of weeks, but the pain never returned. He never heard from Dr. Shaikh's office so we will resend that referral. We will also refer him for a bilateral upper extremity EMG/nerve conduction study due to his paresthesias into his upper extremities. We will see him back in a couple of months so we can discuss all of this. Resend referral to Dr. Shaikh's office Schedule B/L upper extremity EMG/NCV with Dr. Hammond 09/13/2024 Paroxysmal A-fib (ICD-10 - I48.0) Patient has new onset of A-fib which was confirmed by twelve-lead EKG back in June 2024. Denied any more episode of chest pain shortness of breath or palpitation. EKG from today confirmed he was in sinus rhythm to sinus bradycardia. Giacomo Vascor 1 Start 325mg of aspirin Continue metoprolol diltiazem EKG in office today indication is A-fib hypertension findings are sinus rhythm with PAC heart rate of 55 so sinus bradycardia 09/28/2024 Cervical radiculopathy (ICD-10 - M54.12) 11/13/2024 SOB (shortness of breath) (ICD-10 - R06.02) Is scheduled to have a CT calcium score in the end of November 2024. Otherwise we talked about the most recent echocardiogram. Echo from September 2024 when he was in normal sinus rhythm with heart rate of 59-61, ejection fraction is still more than 65%, peak velocity across the LVOT was 1.6 m/s, previously when he was in higher heart rate of 90-100 his LVOT V-max was close to 2 m/s improved. If the CT score is abnormal then we will consider stress test. 11/13/2024 Paroxysmal A-fib (ICD-10 - I48.0) Patient has new onset of A-fib which was confirmed by twelve-lead EKG back in June 2024. Giacomo Vascor 1 Continue 325mg of aspirin Continue metoprolol diltiazem 11/13/2024 Essential hypertension (ICD-10 - I10) Blood pressure is reasonable today is 134/82, heart rate is 64 09/27/2024 DDD (degenerative disc disease), cervical (ICD-10 - M50.30) 09/13/2024 Essential hypertension (ICD-10 - I10) Blood pressure at goal. EKG in office today indication is A-fib hypertension findings are sinus rhythm with PAC heart rate of 55 so sinus bradycardia 07/26/2024 Cervical spondylosis with radiculopathy (ICD-10 - M47.22) 07/26/2024 Degeneration of intervertebral disc of lumbar region with discogenic back pain and lower extremity pain (ICD-10 - M51.362) 09/13/2024 Rheumatic mitral stenosis (ICD-10 - I05.0) Repeat echo EKG in office today indication is A-fib hypertension findings are sinus rhythm with PAC heart rate of 55 so sinus bradycardia 09/27/2024 Cervical spondylosis with radiculopathy (ICD-10 - M47.22) 11/13/2024 Left ventricular outflow obstruction (ICD-10 - Q24.8) Based on the echocardiogram back in June 2024, there was evidence of flow acceleration at the level of LVOT V-max up to close to 3 m/s with Valsalva heart rate was 90-100 at that time He had a repeat echocardiogram in September 2024, repeat echocardiogram showed LVOT V-max was 1.6 m/s heart rate was 59 to 60s No murmur today Continue diltiazem and metoprolol 09/27/2024 Degeneration of intervertebral disc of lumbar region with discogenic back pain and lower extremity pain (ICD-10 - M51.362) 11/13/2024 Mitral regurgitation (ICD-10 - I34.0) 09/13/2024 Vapes nicotine containing substance (ICD-10 - Z72.0) EKG in office today indication is A-fib hypertension findings are sinus rhythm with PAC heart rate of 55 so sinus bradycardia 07/26/2024 Lumbosacral spondylosis with radiculopathy (ICD-10 - M47.27) 07/26/2024 Abnormality of gait and mobility (ICD-10 - R26.9) 09/27/2024 Lumbosacral spondylosis with radiculopathy (ICD-10 - M47.27) 11/13/2024 Vapes nicotine containing substance (ICD-10 - Z72.0) 09/27/2024 Abnormality of gait and mobility (ICD-10 - R26.9) 07/26/2024 Other Maxi, Ward Gorman, am scribing for Dr. Howard Gaspar. I, Dr. Howard Gaspar, personally performed the services described in this documentatio n, as scribed by Ward Gorman, and it is both accurate and complete. 09/13/2024 Other Maxi, Rocio Donovan, am scribing for Donna Ace MD. Donna German MD, personally performed the services prescribed in this documentatio n, as scribed by Rocio Donovan and it is both accurate and complete. EKG in office today indication is A-fib hypertension findings are sinus rhythm with PAC heart rate of 55 so sinus bradycardia 09/27/2024 Other Ward German, am scribing for Dr. Howard Gaspar. I, Dr. Howard Gaspar, personally performed the services described in this documentation, as scribed by Ward Gorman, and it is both accurate and complete. 11/13/2024 Other Rocio German, felipe scribing for Donna Ace MD. Donna German MD, personally performed the services prescribed in this documentatio n, as scribed by Rocio Donovan and it is both accurate and complete. Plan Of Treatment Pending Test Test Name Order Date Electrocardiogram (EKG) - [id number] 09/14/19 Schedule Confirmation 06/30/2024 Next Appt Details Provider Name:Donna gonzalez, 01/15/2025 02:15:00 PM, [address] [place] [address], [phone], Insurance Providers Payer Name Payer Address Payer Phone Subscriber Number Group Number Insured Name Patient Relationship to Insured Coverage Start Date Coverage End Date [employer] [address] [place] [phone] [id number] Carlos Alberto Uriarte Self - patient is the insured Medical (General) History Medical History History ICD Code Chronic pain syndrome arthritis afib bipolar anxiety Gerd hypertension Surgical History Surgery Date(Month/Year) Cholecystectomy 07/2024 Elbow surgery Hospitalization History Reason Date(Month/Year) [facility] . Atrial fibrillation wit h RVR, converted to sinus rhythm on diltiazem 06/29/2024 [facility] 1. Intractable nausea and vomiting 2. Gastroenteritis 06/25/2024
[2024-12-29 15:52] LABS: Bilirubin Urine Negative (Negative); Blood Urine Negative (Negative); Glucose Urine UA Negative (Normal); Ketones Urine 2+ (Negative); Leukocyte Esterase Urine Negative (Negative); Nitrate Urine Negative (Negative); Protein Urine Negative (Negative); Specific Gravity, Urine 1.017 (1.005-1.030); Urine Appearance Clear (CLEAR); Urine Color Yellow (Yellow); pH Urine 5.5 (5-7)
[2024-12-29 15:57] LABS: Add Urine Microscopic? YES; Bacteria Urine None Seen /hpf; Hyaline Casts Urine 8.67 /lpf; RBC Urine 0-2 /hpf (0-2); Squamous Epithelial Cell Urine 0-5 /hpf (0-5); WBC Urine 0-5 /hpf (0-5)
[2024-12-29 16:41] LABS: UA Slide Review UA Slide Review Perf
[2024-12-29 16:42] LABS: Add Urine Culture? No
[2024-12-29] MEDS: amiodarone 150 MG/100 ML PREMIX 400 MG IV (17:44)
[2024-12-29] MEDS: gabapentin 300 mg Capsule 600 MG PO (17:48)
[2024-12-30 03:42] VITALS: BP 106/73; PULSE 95; RESP 16; TEMP 36.5; O2SAT 93
[2024-12-30 03:58] LABS: Basophils # 0.1 10^3/uL (0.0-0.1); Basophils % 0.8 %; Eosinophils # 0.1 10^3/uL (0.0-0.8); Eosinophils % 1.5 %; Hematocrit 49.2 % (37-53); Lymphocytes # 2.2 10^3/uL (0.8-4.8); Lymphocytes % 23.3 %; Mean Corpuscular HGB Conc 33.7 g/dL (30-55); Mean Corpuscular Hemoglobin 29.3 pg (27-33); Mean Corpuscular Volume 86.8 fl (82-101); Mean Platelet Volume 12.6 fL (7.4-10.4); Monocytes # 0.7 10^3/uL (0.2-0.9); Monocytes % 7.8 %; Neutrophils # 6.33 10^3/uL (1.8-7.7); Neutrophils % 66.3 %; Nucleated Red Blood Cells % 0 %; Platelet Count 231 10^3/cmm (157-399); Red Blood Count 5.67 10^6/uL (3.85-5.65); Red Cell Distribution Width 12.5 % (12.1-15.1); White Blood Count 9.54 10^3/uL (3.29-11.43)
[2024-12-30 04:16] LABS: Alanine Aminotransferase 44 U/L (0-41); Alkaline Phosphatase 60 U/L (40-130); Anion Gap 17.6 (5-19); Aspartate Amino Transferase 27 U/L (0-40); Blood Urea Nitrogen 10 mg/dL (6-20); Calcium 9.1 mg/dL (8.5-10.5); Carbon Dioxide 23 mmol/L (22-29); Chloride 102 mmol/L (98-107); Creatinine Clr Calc Pharmacy 82.2537; Globulin 2.9 g/dL (1.3-4.6); Glucose 92 mg/dL (65-115); Magnesium 2.2 mg/dL (1.7-2.3); Osmolality Calculated 287 mOsm/kg (285-295); Phosphorus 3.9 mg/dL (2.5-4.5); Potassium 3.6 mmol/L (3.5-5.1); Sodium 139 mmol/L (136-145); Total Bilirubin 0.4 mg/dL (0.15-1.2); Total Protein 6.9 g/dL (6.6-8.7)
[2024-12-30 08:00] VITALS: BP 125/86; PULSE 106; RESP 24; TEMP 36.3; O2SAT 95
[2024-12-30] MEDS: gabapentin 300 mg Capsule 600 MG PO ×2 (08:27→17:18)
[2024-12-30] MEDS: amiodarone 200 mg Tablet 400 MG PO ×2 (08:28→17:19)
[2024-12-30] MEDS: ATORVASTATIN 10 MG TABLET PO (08:28)
[2024-12-30] MEDS: metoprolol succinate ER (24 HR) 50 mg Tablet PO (08:28)
[2024-12-30] MEDS: aspirin 81 mg EC Tablet PO (08:28)
[2024-12-30] MEDS: lisinopril 10 mg Tablet PO (08:28)
[2024-12-30] MEDS: prazosin 5 mg Capsule PO (09:24)
[2024-12-30] MEDS: FUROsemide 10 mg/mL SDV 4mL 40 MG IVP (09:24)
[2024-12-30] MEDS: ARIPiprazole 10 mg Tablet 20 MG PO (09:24)
[2024-12-30] MEDS: tamsulosin 0.4 mg Capsule PO (09:24)
--- NOTE | 2024-12-30 09:51 | PC.NURSE ---
dr guaman instructed to dc amioderone drip one hour after po amio and metoprolol given.amiodarone drip dc'd as ordered at 0930
[2024-12-30 12:00] VITALS: BP 98/76; PULSE 108; RESP 15; TEMP 36.6; O2SAT 95
--- NOTE | 2024-12-30 14:23 | P.PN_ITS ---
Subjective 2 Subjective: Patient was seen this morning, currently alert oriented x 3, following all commands, denies any fevers, chills he remains in A-fib heart rates to go up into the 120s on amiodarone drip at 0.5, discussed de-escalating to p.o. amiodarone will have him ambulate, if his heart rate continues to be elevated will increase his dose of metoprolol, he has been on Cardizem 360 as outpatient without improvement of his heart rates, as he reports that it is not unusual for his heart rates to be greater than 120, but will consider if after metoprolol dose increase we might consider adding on Cardizem, will diurese him today given 40 of IV Lasix, he is in agreement Vitals/I&O/Wt Last Vital Signs Temp 97.4 F L 12/30/24 08:00 Pulse 106 H 12/30/24 08:00 Resp 24 H 12/30/24 08:00 BP 125/86 12/30/24 08:00 Pulse Ox 95 12/30/24 08:00 O2 Del Method Room Air 12/30/24 08:00 12/29/24 12/30/24 12/30/24 22:59 06:59 14:59 Intake Total 1423.167 / 1440.000 200 / 1640.000 455.027 / 455.027 Output Total 1200 / 1450 700 / 700 Balance 223.167 / -10.000 200 / 190.000 -244.973 / -244.973 Weight last 48 hrs Weight 115.258 kg Weight 116.12 kg Weight 113.398 kg Physical Exam 2 Const: COMMON NORMALS: no acute distress and patient oriented x3 Resp: COMMON NORMALS: normal respiratory effort, No retractions, No use of accessory muscles and clear to auscultation bilaterally AUSCULTATION: clear to auscultation bilaterally Cardio: COMMON NORMALS: S1 normal heart sound present and S2 normal heart sound present RATE: tachycardic RHYTHM: abnormal rhythm irregularly irregular HEART SOUNDS: S1 normal heart sound present and S2 normal heart sound present GI: COMMON NORMALS: Normal to inspection, nondistended, normoactive bowel sounds present and non-tender Extremity: COMMON NORMALS: no pedal edema Neuro: COMMON NORMALS: patient oriented x3 Psych: COMMON NORMALS: mental status grossly normal Data 12/30/24 02:00 12/30/24 02:00 A&P Assessment and plan (1) Atrial fibrillation with rapid ventricular response: Plan - On Cardizem drip heart rates remained greater than 130s to 140s, A-fib with RVR -Switch to amiodarone drip -Heart rates more reasonable 100s to 120s, de-escalate to p.o. amiodarone - Increase to metoprolol 50 twice daily - Cardiac echo CONCLUSIONS Atrial fibrillation during the study Mild concentric LVH. Normal LV systolic function. Estimated LVEF normal 65%. Normal RV size and systolic function. Normal right and left atria. No significant valvular abnormality noted. Normal right heart and pulmonary pressures. - Lasix 40 IV for fluid overload - CHADS2 Vasc is 1, aspirin 81 (2) CHF exacerbation: - 40 mg IV push Lasix PDMP PDMP Reviewed: Not Reviewed Attestations 2 Medical Necessity Statement*: Patient requires hospitalization for A-fib RVR, CHF exacerbation Diagnoses Atrial fibrillation with rapid ventricular response I48.91 CHF exacerbation I50.9
[2024-12-30] MEDS: enoxaparin 40 mg/0.4 mL Syringe SUBCUT (14:53)
[2024-12-30] MEDS: pantoprazole 40 mg SDV IVP (14:53)
[2024-12-30] MEDS: sertraline 100 mg Tablet PO (14:54)
[2024-12-30 16:00] VITALS: BP 104/83; PULSE 97; RESP 16; TEMP 36.6; O2SAT 95
--- NOTE | 2024-12-30 18:11 | USCV_ITS ---
Carlos Alberto Uriarte Age: 54 Gender: M : 1970 Exam Date: 12/30/2024 06:41 Ordering Phys: Nas Vu MD Technologist: Be Del Valle Exam Location[place] [facility] [place] Indication: afib BP: 106 / 73 HR: 71 Rhythm: Atrial fibrillation Technical Quality: Adequate MEASUREMENTS (Male / Female) Normal Values 2D ECHO LV Diastolic Diameter PLAX 3.8 cm 4.2 - 5.9 / 3.9 - 5.3 cm IVS Diastolic Thickness 1.3 cm 0.6 - 1.0 / 0.6 - 0.9 cm IVS Systolic Thickness 1.4 cm LVPW Diastolic Thickness 1.7 cm 0.6 - 1.0 / 0.6 - 0.9 cm LVPW Systolic Thickness 2.1 cm LVOT Diameter 2.0 cm LV Ejection Fraction 2D Teich 56.9 % LV Ejection Fraction MOD 4C 66.0 % LV Ejection Fraction MOD 2C 63.2 % LV Ejection Fraction 2C AL 66.5 % LA Diameter 3.4 cm RA Systolic Volume 4C AL 33.4 ml RA Systolic Volume 4C MOD 33.2 ml LA Sys Volume AL 48.8 cm cubed LA Sys Volume Index AL 20.3 cm cubed/m squared Aorta at Sinotubular Diameter 2.5 cm IVC Diameter 1.6 cm M-MODE LA Ao Ratio MM 1.2 AV Cusp Separation MM 1.9 cm DOPPLER AV Peak Velocity 174.0 cm/s LVOT Peak Velocity 138.0 cm/s AV Area Cont Eq vti 3.5 cm squared AV Area Cont Eq pk 2.5 cm squared MV Peak Velocity 126.0 cm/s MV Area PHT 5.0 cm squared Mitral E to A Ratio 241.0 TR Peak Velocity 270.0 cm/s TR Peak Gradient 29.2 mmHg TR Mean Velocity 214.0 cm/s TR Mean Gradient 20.3 mmHg TR Velocity Time Integral 51.4 cm PV Peak Velocity 99.8 cm/s RV Ejection Time 0.2 s FINDINGS Left Ventricle Mild concentric left ventricular hypertrophy. Normal left ventricular systolic function with normal wall motion and thickening. Estimated LVEF normal at 65%. Right Ventricle Normal right ventricular size and systolic function. Right Atrium Normal right atrial size. Left Atrium Normal left atrial size. Mitral Valve Structurally normal mitral valve. Trace mitral valve regurgitation. Aortic Valve Structurally normal trileaflet aortic valve. No aortic stenosis. Tricuspid Valve Structurally normal tricuspid valve. Trace TR. TR gradient 25 mmHg. Estimated PAP 30 mmHg. Pulmonic Valve Pulmonic valve not well visualized. Trace pulmonary valve regurgitation. Pericardium No pericardial effusion. Aorta Normal size aortic root and proximal ascending aorta. IVC Normal IVC dimension with >50% respiratory change of the inferior vena cava. CONCLUSIONS Atrial fibrillation during the study Mild concentric LVH. Normal LV systolic function. Estimated LVEF normal 65%. Normal RV size and systolic function. Normal right and left atria. No significant valvular abnormality noted. Normal right heart and pulmonary pressures. Deepti Sadler MD (Electronically Signed) Final Date: 30 December 2024 12:56 S
[2024-12-30 20:00] VITALS: BP 121/71; PULSE 105; RESP 18; TEMP 36.9; O2SAT 95
[2024-12-30] MEDS: hyDROXYzine 25 mg Capsule 50 MG PO (20:36)
[2024-12-30] MEDS: metoprolol tartrate 50 mg Tablet PO (20:36)
[2024-12-31] VITALS: BP 115/85; PULSE 75; RESP 14; TEMP 36.4
[2024-12-31 04:05] LABS: Basophils # 0.1 10^3/uL (0.0-0.1); Basophils % 0.6 %; Eosinophils # 0.1 10^3/uL (0.0-0.8); Eosinophils % 0.9 %; Hematocrit 50.1 % (37-53); Lymphocytes # 2.7 10^3/uL (0.8-4.8); Lymphocytes % 21.4 %; Mean Corpuscular HGB Conc 32.9 g/dL (30-55); Mean Corpuscular Hemoglobin 29.4 pg (27-33); Mean Corpuscular Volume 89.3 fl (82-101); Mean Platelet Volume 11.9 fL (7.4-10.4); Monocytes # 0.8 10^3/uL (0.2-0.9); Monocytes % 6.7 %; Neutrophils # 8.69 10^3/uL (1.8-7.7); Nucleated Red Blood Cells % 0 %; Platelet Count 313 10^3/cmm (157-399); Red Blood Count 5.61 10^6/uL (3.85-5.65); Red Cell Distribution Width 12.4 % (12.1-15.1); White Blood Count 12.41 10^3/uL (3.29-11.43)
[2024-12-31 04:22] LABS: Anion Gap 18.9 (5-19); Blood Urea Nitrogen 17 mg/dL (6-20); Calcium 9.1 mg/dL (8.5-10.5); Carbon Dioxide 22 mmol/L (22-29); Chloride 100 mmol/L (98-107); Glomerular Filtration Rate 42.5 mL/min (90-130); Glucose 96 mg/dL (65-115); Osmolality Calculated 285 mOsm/kg (285-295); Potassium 3.9 mmol/L (3.5-5.1); Sodium 137 mmol/L (136-145)
[2024-12-31 04:35] VITALS: BP 127/87; PULSE 79; RESP 14; TEMP 36.5; O2SAT 93
[2024-12-31] MEDS: sertraline 100 mg Tablet PO (05:08)
[2024-12-31] MEDS: gabapentin 300 mg Capsule 600 MG PO (07:36)
[2024-12-31] MEDS: metoprolol tartrate 50 mg Tablet PO (07:37)
[2024-12-31] MEDS: aspirin 81 mg EC Tablet PO (07:37)
[2024-12-31] MEDS: tamsulosin 0.4 mg Capsule PO (07:37)
[2024-12-31] MEDS: ARIPiprazole 10 mg Tablet 20 MG PO (07:37)
[2024-12-31] MEDS: amiodarone 200 mg Tablet 400 MG PO (07:38)
[2024-12-31] MEDS: prazosin 5 mg Capsule PO (07:39)
[2024-12-31] MEDS: lisinopril 10 mg Tablet PO (07:39)
[2024-12-31] MEDS: ATORVASTATIN 10 MG TABLET PO (07:39)
[2024-12-31 08:00] VITALS: BP 98/66; PULSE 69; RESP 18; TEMP 36.7; O2SAT 92
--- NOTE | 2024-12-31 10:57 | PM.DCS ---
Discharge Providers Date of Admission: 12/29/24 13:27 Date of Discharge: December 31, 2024 Attending Provider at Admission: Nas Vu MD Attending Provider at Discharge: Nas Vu MD Primary Care Provider: MAGED Esparza Diagnoses at Discharge Discharge Diagnosis (1) Atrial fibrillation with rapid ventricular response: Status: Acute (2) CHF exacerbation: Status: Acute Reason for Visit Reason for Visit: Afib (Sent by [place]) Hospital Course Hospital Course Carlos Alberto Uriarte is a 54 year old male with atrial fibrillation, hypertension, history of cholecystectomy, who presents to [facility] due to feeling unwell, and tachycardia, A-fib with RVR. Currently patient alert oriented x 3, following all commands, heart rates in the 120s, A-fib with RVR on a Cardizem drip, he tells me that he has not been feeling well for the last day, no fevers, does report chills, no cough, no dysuria, no hematuria, no abdominal pain, no diarrhea, no chest pain but does report chest palpitations, does report increased lower extreme edema does report shortness of breath, he followed up with his [place] physician today, was diagnosed with A-fib with RVR and sent to [facility] for further evaluation Patient was admitted to [facility] for A-fib with RVR, managed on amiodarone drip transition to p.o. amiodarone, metoprolol dose was increased to 50 twice daily, converted to normal sinus rhythm. Patient will be discharged on tapering dose of amiodarone, metoprolol 50 twice daily, with close follow-up with cardiology as outpatien t Cardiac echo CONCLUSIONS Atrial fibrillation during the study Mild concentric LVH. Normal LV systolic function. Estimated LVEF normal 65%. Normal RV size and systolic function. Normal right and left atria. No significant valvular abnormality noted. Normal right heart and pulmonary pressures. In terms of anticoagulant therapy, patient's CHADS2 Vasc score is 1, discussed risk and benefits of anticoagulant therapy, for now he would like to continue aspirin 81 mg Patient had CHF exacerbation during his hospitalization, required IV diuresis, overall clinically improved, euvolemic on discharge Creatinine is 1.7 on discharge, monitor as outpatient, repeat BMP in 72 hours Physical Exam Const: COMMON NORMALS: no acute distress and patient oriented x3 Resp: COMMON NORMALS: normal respiratory effort, No retractions, No use of accessory muscles and clear to auscultation bilaterally AUSCULTATION: clear to auscultation bilaterally Cardio: COMMON NORMALS: regular rate, regular rhythm, S1 normal heart sound present and S2 normal heart sound present RATE: regular rate RHYTHM: regular rhythm HEART SOUNDS: S1 normal heart sound present and S2 normal heart sound present GI: COMMON NORMALS: Normal to inspection, nondistended, normoactive bowel sounds present and non-tender Extremity: COMMON NORMALS: no pedal edema Neuro: COMMON NORMALS: patient oriented x3 Psych: COMMON NORMALS: mental status grossly normal Discharge Data Studies Completed and Pending Completed Studies During Hospitalization Category Date Time Status XR chest 1V portable [id number] Stat Exams 12/29/24 10:31 Completed CV. echo complete* [id number] Routine Ultrasound 12/30/24 18:11 Completed Pending at discharge Category Date Time Status Basic Metabolic Panel AM LABS Lab 01/01/25 04:00 Ordered Basic Metabolic Panel AM LABS Lab 01/02/25 04:00 Ordered Complete Blood Count w/Auto AM LABS Lab 01/01/25 04:00 Ordered Complete Blood Count w/Auto AM LABS Lab 01/02/25 04:00 Ordered Urinalysis Routine Lab 12/31/24 10:41 Received Radiology Impressions Chest X-Ray 12/29/24 10:31 Impression: Negative chest. Laboratory Results WBC 12.41 10^3/uL (3.29-11.43) H 12/31/24 03:24 RBC 5.61 10^6/uL (3.85-5.65) 12/31/24 03:24 Hgb 16.50 g/dL (11.27-16.99) 12/31/24 03:24 Hct 50.1 % (37-53) 12/31/24 03:24 MCV 89.3 fl (82-101) 12/31/24 03:24 MCH 29.4 pg (27-33) 12/31/24 03:24 MCHC 32.9 g/dL (30-55) 12/31/24 03:24 RDW 12.4 % (12.1-15.1) 12/31/24 03:24 Plt Count 313 10^3/cmm (157-399) D 12/31/24 03:24 MPV 11.9 fL (7.4-10.4) H 12/31/24 03:24 Neut % (Auto) 70.0 % 12/31/24 03:24 Lymph % (Auto) 21.4 % 12/31/24 03:24 [place] % (Auto) 6.7 % 12/31/24 03:24 Eos % (Auto) 0.9 % 12/31/24 03:24 Baso % (Auto) 0.6 % 12/31/24 03:24 Neut # (Auto) 8.69 10^3/uL (1.8-7.7) H 12/31/24 03:24 Lymph # (Auto) 2.7 10^3/uL (0.8-4.8) 12/31/24 03:24 [place] # (Auto) 0.8 10^3/uL (0.2-0.9) 12/31/24 03:24 Eos # (Auto) 0.1 10^3/uL (0.0-0.8) 12/31/24 03:24 Baso # (Auto) 0.1 10^3/uL (0.0-0.1) 12/31/24 03:24 Nucleated RBC % (auto) 0 % 12/31/24 03:24 Nucleated RBCs # 0.0 /100WBC 12/31/24 03:24 PT 13.20 SECONDS (12.1-14.9) 12/29/24 10:34 INR 0.94 (0.8-1.2) 12/29/24 10:34 Sodium 137 mmol/L (136-145) 12/31/24 03:24 Potassium 3.9 mmol/L (3.5-5.1) 12/31/24 03:24 Chloride 100 mmol/L (98-107) 12/31/24 03:24 Carbon Dioxide 22 mmol/L (22-29) 12/31/24 03:24 Anion Gap 18.9 (5-19) 12/31/24 03:24 BUN 17 mg/dL (6-20) 12/31/24 03:24 Creatinine 1.7 mg/dL (0.7-1.2) H 12/31/24 03:24 GFR Calculation 42.5 mL/min (90-130) L 12/31/24 03:24 Glucose 96 mg/dL (65-115) 12/31/24 03:24 Estimat Average Glucose 117 12/29/24 10:34 Hemoglobin A1c 5.7 % (4.0-6.0) 12/29/24 10:34 Calculated Osmolality 285 mOsm/kg (285-295) 12/31/24 03:24 Calcium 9.1 mg/dL (8.5-10.5) 12/31/24 03:24 Phosphorus 3.9 mg/dL (2.5-4.5) 12/30/24 02:00 Magnesium 2.2 mg/dL (1.7-2.3) 12/30/24 02:00 Total Bilirubin 0.4 mg/dL (0.15-1.2) 12/30/24 02:00 AST 27 U/L (0-40) 12/30/24 02:00 ALT 44 U/L (0-41) H 12/30/24 02:00 Alkaline Phosphatase 60 U/L (40-130) 12/30/24 02:00 C-Reactive Protein 3.0 mg/L (0.0-4.9) 12/29/24 10:34 Total Protein 6.9 g/dL (6.6-8.7) 12/30/24 02:00 Albumin 4.0 g/dL (3.5-5.2) 12/30/24 02:00 Globulin 2.9 g/dL (1.3-4.6) 12/30/24 02:00 Procalcitonin 0.07 ng/mL (0-0.5) 12/29/24 10:34 TSH 3.11 uIU/mL (0.27-4.20) 12/29/24 10:34 Urine Color Yellow (Yellow) 12/29/24 14:26 Urine Appearance Clear (CLEAR) 12/29/24 14:26 Urine pH 5.5 (5-7) 12/29/24 14:26 Ur Specific [place] 1.017 (1.005-1.030) 12/29/24 14:26 Urine Protein Negative (Negative) 12/29/24 14:26 Urine Glucose (UA) Negative (Normal) 12/29/24 14:26 Urine Ketones 2+ (Negative) H 12/29/24 14:26 Urine Blood Negative (Negative) 12/29/24 14:26 Urine Nitrate Negative (Negative) 12/29/24 14:26 Urine Bilirubin Negative (Negative) 12/29/24 14:26 Urine Urobilinogen 1.0 mg/dL (Negative) 12/29/24 14:26 Ur Leukocyte Esterase Negative (Negative) 12/29/24 14:26 Urine RBC 0-2 /hpf (0-2) 12/29/24 14:26 Urine WBC 0-5 /hpf (0-5) 12/29/24 14:26 Ur Squamous Epith Cells 0-5 /hpf (0-5) 12/29/24 14:26 Amorphous Sediment Not Reportable 12/31/24 10:41 Urine Bacteria None seen /hpf (NONE) 12/29/24 14:26 Hyaline Casts 8.67 /lpf 12/29/24 14:26 Vitals Last Vital Signs Temp 98.1 F 12/31/24 08:00 Pulse 69 12/31/24 08:00 Resp 18 12/31/24 08:00 BP 98/66 12/31/24 08:00 Pulse Ox 92 12/31/24 08:00 O2 Del Method Room Air 12/31/24 08:00 Discharge Plan Discharge Patient Disposition: Home Condition: Stable Prescriptions: New amiodarone [Pacerone] 200 mg Tablet See Rx Instructions .ROUTE .COMPLEX Qty: 35 0RF Rx Instructions: 1 tab twice daily for 7 days, followed by 1 tab daily metoprolol tartrate 50 mg Tablet 50 mg PO BID@0900,2100 30 Days Qty: 60 0RF Continued aripiprazole [Abilify] 20 mg tablet 20 mg PO DAILY baclofen 10 mg tablet 10 mg PO TID PRN (Reason: Pain) hydroxyzine HCl 50 mg tablet 50 mg PO TID PRN (Reason: Anxiety) melatonin 5 mg capsule 5 mg PO BEDTIME PRN (Reason: Sleep) prazosin 5 mg capsule 10 mg PO BEDTIME PRN (Reason: Nightmares ) tamsulosin 0.4 mg capsule 0.4 mg PO DAILY sildenafil 100 mg tablet 100 mg PO DAILY PRN (Reason: Sexual Activity) Rx Instructions: administer 30 minutes to 4 hours before activity sertraline [Zoloft] 100 mg Tablet 100 mg PO QAM aspirin [Jay Low Dose Aspirin] 81 mg Tablet,Delayed Release (Dr/Ec) 81 mg PO DAILY ketoconazole 1 % Shampoo 1 applic TOPICAL Q3D rosuvastatin 10 mg Tablet 10 mg PO DAILY chlorhexidine gluconate 4 % Liquid See Rx Instructions .ROUTE .COMPLEX Rx Instructions: lather 1 applic topically in shower every day as directed . selenium sulfide 2.25 % Shampoo 1 applic TOPICAL Q2D Rx Instructions: massage into affected area; leave on for 10 mins ; rinse off thoroughly clindamycin phos-skin clnsr 19 1 % Kit See Rx Instructions .ROUTE .COMPLEX Rx Instructions: 1 ea topically ;apply both twice daily: use CLEANSER; rinse, then apply CLINDAMYCIN to affected area(s) as directed omeprazole 40 mg capsule,delayed release(DR/EC) 40 mg PO QAM albuterol sulfate 90 mcg/actuation HFA aerosol inhaler 2 puff INHALATION Q4H PRN (Reason: Wheezing) Discontinued metoprolol succinate 50 mg Tablet Extended Release 24 Hr 50 mg PO DAILY lisinopril 5 mg Tablet 5 mg PO DAILY diltiazem HCl 180 mg capsule,extended release 24hr 360 mg PO DAILY Discharge Orders: Discharge Order (Routine); Ordered 12/31/24 Ordered By: Nas Vu Referrals: Alice Pham FNP [Primary Care Provider, Nurse Practitioner] Referral Note: Please schedule an appointment next week to have your kidney functions checked. - Last creatinine was 1.7 Problems: Acute kidney injury; Atrial fibrillation with rapid ventricular response Discharge Diet: Cardiac Discharge Activity: Resume usual activity Patient Instructions: Opioid Safety Activity Restrictions/Additional Instructions: - Please follow-up with cardiology in 1 week - Please follow-up with your primary care provider hide to recheck your kidney function next week, creatinine discharge 1.7 - Would drink at least 1.5 L of water daily for the next 3 days Discharge Attestations Time Spent in Discharge Care*: greater than 30 min Quality Metrics Clinical Quality Measures [ No reported AMI, CVA or VTE this stay] Coding Level of Care Code 88155 Total time (in minutes) for Discharge: 45 Diagnoses Atrial fibrillation with rapid ventricular response I48.91 CHF exacerbation I50.9
[2024-12-31 11:04] LABS: Bilirubin Urine Negative (Negative); Blood Urine Negative (Negative); Glucose Urine UA Negative (Normal); Ketones Urine Trace (Negative); Leukocyte Esterase Urine Negative (Negative); Nitrate Urine Negative (Negative); Protein Urine Trace (Negative); Specific Gravity, Urine 1.024 (1.005-1.030); Urine Appearance Clear (CLEAR); Urine Color Yellow (Yellow); pH Urine 5.5 (5-7)
[2024-12-31 11:09] LABS: Add Urine Microscopic? YES; Bacteria Urine None Seen /hpf; Hyaline Casts Urine 20.67 /lpf; RBC Urine 0-2 /hpf (0-2); Squamous Epithelial Cell Urine 0-5 /hpf (0-5); Universal Test for UA Present (0); WBC Urine 0-5 /hpf (0-5)
--- NOTE | 2024-12-31 11:29 | PC.NURSE ---
Patient discharged to home. Instruction provided regarding follow up needs and medication changes. Patient verbalized complete understanding. Patient insisted on leaving ambulatory with friend by side to provided transporation. New medications transmitted to [facility].
[2024-12-31 11:35] VITALS: BP 98/66; PULSE 69; RESP 18; TEMP 36.7; O2SAT 92
[2024-12-31 11:50] LABS: UA Slide Review UA Slide Review Perf
== END 2024-12-31 11:37 | disposition home or self-care (01) | DRG 309 ==
LOC: ER 12:11 → CSU 14:54
PROVIDERS: Admitting Provider Family Medicine; Emergency Provider Family Medicine; PCP Nurse Practitioner; Visit Provider Family Medicine
DX: I48.91 Unspecified atrial fibrillation (principal); N17.9 Acute kidney failure, unspecified; I11.0 Hypertensive heart disease with heart failure; I50.9 Heart failure, unspecified; R00.0 Tachycardia, unspecified; K21.9 Gastro-esophageal reflux disease without esophagitis; N40.0 Benign prostatic hyperplasia without lower urinary tract symptoms; E78.5 Hyperlipidemia, unspecified; D75.1 Secondary polycythemia; Z79.82 Long term (current) use of aspirin; Z90.49 Acquired absence of other specified parts of digestive tract
CPT/HCPCS: 36415; 71045; 80048; 80053; 81001; 83036; 83735; 84100; 84145; 84443; 85025; 85610; 86140; 93005; 93306; 94664; 96365; 96366; 96372; 96375; 99285; J0283; J1650; J1938; J2470; J3490; J7030; J9999

== ENCOUNTER → 2025-01-30 08:38 | Outpatient (BNVA) | payer OTHER, SELFPAY | PROVIDERS: PCP Nurse Practitioner; Visit Provider Orthopaedic Surgery | DX: M48.02 Spinal stenosis, cervical region (principal); M54.2 Cervicalgia | CPT/HCPCS: 72050; 99213 ==

== ENCOUNTER → 2025-03-21 14:35 | Outpatient (BNVA) | payer OTHER, SELFPAY | PROVIDERS: PCP Nurse Practitioner; Visit Provider Surgery | DX: Z12.11 Encounter for screening for malignant neoplasm of colon (principal) | CPT/HCPCS: 99214 ==

== ENCOUNTER 2025-03-28 15:49 | Emergency (ER) | payer OTHER, SELFPAY ==
--- OUTSIDE RECORDS SUMMARY | 2025-01-19 02:30 | XMS_ITS ---
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 Alice BARAKAT Primary Care Provid er Unavailable Donna Ace Unavailable [phone] REASON FOR VISIT Stress Echo Medications Medication SIG (Take, Route, Frequency, Duration) Notes Start Date End Date Status hydrOXYzine Pamoate 50 MG Capsule 1 capsule at bedtime as needed Orally Once a day As needed Active Lisinopril 10 MG Tablet 1 tablet Orally Once a day Not-Taking dilTIAZem HCl ER 180 MG Capsule Extended Release 24 Hour 1 capsule Orally Once a day Active Gabapentin 600 MG Tablet 2 tablets orall y once daily Active Omeprazole 40 MG Capsule Delayed Release 1 capsule 1/2 to 1 hour before morning meal Orally Once a day Active Aspirin 325 MG Tablet 1 tablet Orally On ce a day; Duration: 90 days 09/13/2024 Active Crestor 10 MG Tablet 1 tablet Orally Onc e a day; Duration: 90 days 12/05/2024 Active Metoprolol Succinate ER 50 MG Tablet Extended Release 24 Hour 1 tablet Orally Once a day Active ARIPiprazole 20 MG Tablet 1 tablet Orall y Once a day Active Albuterol Sulfate HFA 108 (90 Base) MCG/ACT Aerosol Solution INHALE 2 PUFFS BY MOUTH EVERY 4 HOURS NEEDED FOR WHEEZING Inhalation; Duration: 17 Days Active Tamsulosin HCl 0.4 MG Capsule 2 capsules orally once a day Active Prazosin HCl 5 MG Capsule 2 capsule Oral ly Once a day 08/03/2024 Active Sertraline HCl 100 MG Tablet 1 tablet Orally Once a day Active Encounters Encounter Location Date Provider Diagnosis [facility] [address] [place] [address], [place] [id number] 01/19/2025 Donna Ace Plan Of Treatment Next Appt Details Provider Name:Udayelroy Robersonmariposa gonzalez, 06/28/2025 01:45:00 PM, [address] [place], [id number], Progress Notes * Carlos Alberto JACKSONDOB:1970 (54 yo M)Acc No.[id number]:01/19/2025 Patient: Carlos Alberto Jones Provider: Fabby Ace MD :1970 A ge:54 Y S ex:Male Date:01/19/2025 Address:[address] [place], [place] [id number] Pcp:Alice [facility] Subjective: * Chief Complaints: * S tress Echo * Medications: T akingMetoprolol Succinate ER 50 MG Tablet Extended Release 24 Hour 1 tablet Orally Once a day ARIPiprazole 20 MG Tablet 1 tablet Orally Once a day Aspirin 325 MG Tablet 1 tablet Orally Once a day Crestor 10 MG Tablet 1 tablet Orally Once a day dilTIAZem HCl ER 180 MG Capsule Extended Release 24 Hour 1 capsule Orally Once a day Gabapentin 600 MG Tablet 2 tablets orally once daily hydrOXYzine Pamoate 50 MG Capsule 1 capsule at bedtime as needed Orally Once a day As neededOmeprazole 40 MG Capsule Delayed Release 1 capsule 1/2 to 1 hour before morning meal Orally Once a day Prazosin HCl 5 MG Capsule 2 capsule Orally Once a day Sertraline HCl 100 MG Tablet 1 tablet Orally Once a day Tamsulosin HCl 0.4 MG Capsule 2 capsules orally once a day Albuterol Sulfate HFA 108 (90 Base) MCG/ACT Aerosol Solution INHALE 2 PUFFS BY MOUTH EVERY 4 HOURS NEEDED FOR WHEEZING Inhalation Taking Metoprolol Succinate ER 50 MG Tablet Extended Release 24 Hour 1 tablet Orally Once a day Taking ARIPiprazole 20 MG Tablet 1 tablet Orally Once a day Taking Aspirin 325 MG Tablet 1 tablet Orally Once a day Taking Crestor 10 MG Tablet 1 tablet Orally Once a day Taking dilTIAZem HCl ER 180 MG Capsule Extended Release 24 Hour 1 capsule Orally Once a day Taking Gabapentin 600 MG Tablet 2 tablets orally once daily Taking hydrOXYzine Pamoate 50 MG Capsule 1 capsule at bedtime as needed Orally Once a day As neededTaking Omeprazole 40 MG Capsule Delayed Release 1 capsule 1/2 to 1 hour before morning meal Orally Once a day Taking Prazosin HCl 5 MG Capsule 2 capsule Orally Once a day Taking Sertraline HCl 100 MG Tablet 1 tablet Orally Once a day Taking Tamsulosin HCl 0.4 MG Capsule 2 capsules orally once a day Taking Albuterol Sulfate HFA 108 (90 Base) MCG/ACT Aerosol Solution INHALE 2 PUFFS BY MOUTH EVERY 4 HOURS NEEDED FOR WHEEZING Inhalation Not-TakingLisinopril 10 MG Tablet 1 tablet Orally Once a day Not-Taking Lisinopril 10 MG Tablet 1 tablet Orally Once a day Billing Information: * Procedure Codes: * Electronic signature of Liv Ace MD on 03/28/2025 at 03:55 PM CDT Sign off status: Pending * Provider: Fabby Ace MD Date: 01/19/2025 Generated for Varsha martinez/Charlie/Bal on: 03/28/2025 03:55 PM CDT
--- NOTE | 2025-03-28 15:53 | ECG_ITS ---
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 Measurements Intervals Covert Rate: 111 P: 52 UT: 132 QRS: 43 QRSD: 87 T: 40 QT: 319 QTc: 435 Interpretive Statements SINUS TACHYCARDIA POSSIBLE LEFT ATRIAL ENLARGEMENT [-0.1mV P-WAVE IN V1/V2] POSSIBLE RIGHT VENTRICULAR CONDUCTION DELAY [RSR (QR) IN V1/V2] NONSPECIFIC T-WAVE ABNORMALITY ABNORMAL RHYTHM ECG INTERPRETATION BASED ON A DEFAULT AGE OF 40 YEARS Compared to ECG 12/29/2024 14:19:29 T-wave abnormality now present Atrial fibrillation no longer present Electronically Signed On 03-28-2025 23:28:57 CDT by Saida Mancera M.D. [email or web address]
--- OUTSIDE RECORDS SUMMARY | 2025-03-28 15:55 | XMS_ITS | Patient Health Record ---
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 Role Phone Alice Drake Primary Care Provid er Unavailable Donna Ace Unavailable [phone] Howard Gaspar Unavailable [phone] Leila Rosenbaum Unavailable [phone] Allergies Allergen (clinical drug ingredient) Drug/Non Drug Allergy documented on EMR Reaction Allergy Type Onset Date Status clonazepam clonazePAM Unknown Drug Allergy Activ e morphine Morphine Unknown Drug Allergy Active Results Component Value Reference Range Notes Schedule Confirmation (Not y et reviewed by provider) Interpretation: Performing Lab: Notes/Report: MRI Cervical Spine w/o Cont MRI Cervical Spine w/o Cont- [id number] Reviewed date:09/25/2024 10:56:48 AM Interpretation: Performing Lab: Notes/Report: [id number]=iSite Schedule Confirmation Reviewed date:10/09/2024 02:33:11 PM Interpretation: Performing Lab: Notes/Report: Schedule Confirmation Reviewed date:09/18/2024 08:41:55 AM Interpretation: Performing Lab: Notes/Report: CT Cardiac Scoring Diagnostic Schedule Confirmation Reviewed date:10/25/2024 04:10:59 PM Interpretation: Performing Lab: Notes/Report: CT Cardiac Scoring Diagnostic RAD Schedule Confirmation Reviewed date:10/25/2024 04:10:59 PM Interpretation: Performing Lab: Notes/Report: CT Cardiac Scoring Diagnostic RAD Schedule Confirmation Reviewed date:10/25/2024 04:10:59 PM Interpretation: Performing Lab: Notes/Report: CT Cardiac Scoring Diagnostic RAD Schedule Confirmation Reviewed date:10/27/2024 08:43:32 AM Interpretation: Performing Lab: Notes/Report: CT Cardiac Scoring Diagnostic RAD Schedule Confirmation Reviewed date:12/01/2024 12:18:49 PM Interpretation: Performing Lab: Notes/Report: CT Cardiac Scoring Diagnostic RAD zzzCT Cardiac Scoring Diagno stic RAD Reviewed date:12/01/2024 12:18:56 PM Interpretation: Performing Lab: Notes/Report: [id number]=iSite zzzCT Cardiac Scoring Diagno stic RAD Reviewed date:12/01/2024 12:18:49 PM Interpretation: Performing Lab: Notes/Report: See Below For Report CT Cardiac Scoring Diagnostic RAD Read See Below For Report CT Cardiac Scoring Diagnosti [id number] Reviewed date:12/01/2024 12:18:49 PM Interpretation: Performing Lab: Notes/Report: See Below For Report CT Cardiac Scoring Diagnostic Diagnosis Description: Paroxysmal atrial fibrillation Read See Below For Report zzzEcho Rest/Stress w/o Cont rast EC--[id number] Reviewed date:01/21/2025 08:44:04 AM Interpretation: Performing Lab: Notes/Report: [id number]=iSite Electrocardiogram (EKG) - 93 000 Reviewed date:03/06/2025 04:52:50 PM Interpretation: Performing Lab: Notes/Report: Schedule Confirmation Reviewed date:01/19/2025 11:17:11 AM Interpretation: Performing Lab: Notes/Report: Echo Rest/Stress with and without Contra Holter x 48 Hour-[id number] Reviewed date:02/05/2025 03:43:17 PM Interpretation: Performing Lab: Notes/Report: Holter x 48 Hour-[id number] Reviewed date:02/05/2025 03:43:17 PM Interpretation: Performing Lab: Notes/Report: Echo with and without Contra st EC-[id number] Reviewed date:09/27/2024 11:45:37 AM Interpretation: Performing Lab: Notes/Report: [id number]&org=iSite CT Cardiac Scoring Diagnosti c-[id number] Reviewed date:12/01/2024 12:18:56 PM Interpretation: Performing Lab: Notes/Report: [id number]=iSite Echo Complete EC-[id number] Reviewed date:09/13/2024 12:13:07 PM Interpretation: Performing Lab: Notes/Report: Fluoro Needle For Placement - Spine 12138 Reviewed date:09/05/2024 01:56:05 PM Interpretation: Performing Lab: Notes/Report: MRI Cervical Spine w/o Cont- [id number] Reviewed date:09/25/2024 10:56:54 AM Interpretation: Performing Lab: Notes/Report: See Below For Report Technique: Sagittal T1, T2 and STIR and axial T1 and T2-weighted Read See Below For Report Schedule Confirmation Reviewed date:10/09/2024 02:32:55 PM Interpretation: Performing Lab: Notes/Report: MRI Cervical Spine w/o Cont Schedule Confirmation Reviewed date:10/09/2024 02:33:02 PM Interpretation: Performing Lab: Notes/Report: MRI Cervical Spine w/o Cont Schedule Confirmation Reviewed date:01/16/2025 01:35:57 PM Interpretation: Performing Lab: Notes/Report: Echo Rest/Stress with and without Contra zzzEcho Rest/Stress w/o Cont rast --[id number] Reviewed date:01/21/2025 08:44:04 AM Interpretation: Performing Lab: Notes/Report: Cardiopulmonary Services Name: CARLOS ALBERTO JACKSON Study Date: 01/19/2025 : 1970 Patient Location: OPO Age: 54 yrs Gender: Male 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 Stress Results Protocol: kacie Maximum Predicted HR: 168 bpm Target HR: 143 bpm % Maximum Predicted HR: 85 % DurationHeart Rate Stage (mm:ss) (bpm) BP Comment Baseline 73 143/86 Stage 1 3:00 107 / 1.7mph/10% Stage 2 3:00 130 214/962.5mph/12% Peak 0:13 142 / 3.4mph/14% Recovery 15:56 73 141/88 Stress Duration: 6:12 mm:ss * Maximum Stress HR: 142 bpm * METS: 7 Interpretation Summary PRE STRESS REST----EF >65----HR 60 ---- LVOTvmax 1.7m/s ----LVOT peak PG 11 mmHg VALSALVA----EF>65 ---- HR 60 ---- LVOTvmax 2.0m/s ----LVOT peak PG 16 mmHg POST STRESS REST----EF >70-----HR 130----LVOT vmax 2.2m/s----LVOT peakPG 19 mmHg VALSALVA----EF>70----HR 104----LVOT vmax 2.3m/s----LVOT peak PG 21 mmHg NO lesion wall motion abnormality was seen. However peak HR was less than 85% of age predicated HR. MMode/2D Measurements & Calculations IVSd: 1.4 cm LVIDd: 4.1 cm FS: 36.8 % LVIDs: 2.6 cm EDV(Teich): 74.2 ml LVPWd: 1.2 cm ESV(Teich): 24.4 ml EF(Teich): 67.1 % LVOT diam: 1.9 cm LVOT area: 2.9 cm2 Doppler Measurements & Calculations MV E max misty: 131.0 cm/sec MV V2 max: 129.9 cm/sec MV dec time: 0.25 sec MV A max misty: 115.0 cm/sec MV max P.7 mmHg MV E/A: 1.1 MV V2 mean: 81.7 cm/sec MV mean P.1 mmHg MV V2 VTI: 51.4 cm MVA(VTI): 1.8 cm2 Ao V2 max: 205.0 cm/sec LV V1 max P.0 mmHg SV(LVOT): 91.1 ml Ao max P.8 mmHg LV V1 mean P.0 mmHg Ao V2 mean: 131.0 cm/sec LV V1 max: 158.0 cm/sec Ao mean P.0 mmHg LV V1 mean: 99.9 cm/sec Ao V2 VTI: 38.3 cm LV V1 VTI: 31.5 cm ALEK(I,D): 2.4 cm2 ALEK(V,D): 2.2 cm2 AV VR_phl: 0.77 Ordering Physician: Donna Ace Referring Physician: Donna Ace Performed By: Lisy Ramirez RCS Schedule Confirmation Reviewed date:11/15/2024 04:26:07 PM Interpretation: Performing Lab: Notes/Report: CT Cardiac Scoring Diagnostic RAD Reason For Referral Reason Cervical stenosis Diagnosis 1 Chronic pain syndrom e (G89.4) [facility] Referring Provider First Name Howard Referring Provider Last Name Chasity Referring Provider Speciality Inter[facility] onal Pain Medicine Referred Provider Fransico Shaikh Referred Provider Specialty Orthopedic S urgery Referral Priority Routine Reason APPT FAXE D CARDIOLOGY/ EVAL & TREAT/ 1 [facility] Diagnosis 1 Other persistent atr ial fibrillation (I48.19) Referring Provider First Name Loc beard Referring Provider Last Name [place] Referring Provider Speciality [place] Referred Organization [facility] [place] [facility] Referred Provider Donna Ace Referred Address [address] [place] [phone], Referred Provider Specialty Cardiology Referral Priority Routine Reason Cervical stenosis Diagnosis 1 Cervical spondylosis with radiculopathy (M47.22) Referral [facility] Referring Provider First Name Howard Referring Provider Last Name Chasity Referring Provider Speciality Interventi onal Pain Medicine Referred Provider Fransico Shaikh Referred Provider Specialty Orthopedic S urgery Referral Priority Routine Reason APPT 03/06/25 CARDI OLOGY EVAL & TREAT 1 [facility] Diagnosis 1 Shortness of breath (R06.02) Referring Provider First Name Loc beard Referring Provider Last Name [place] Referring Provider Speciality [place] [facility] Referred Organization [facility] [place] [facility] Referred Provider Donna Ace Referred Address [address] [place] [phone], Referred Provider Specialty Cardiology Referral Priority Routine Medications Medication SIG (Take, Route, Frequency, Duration) Notes Start Date End Date Status Albuterol Sulfate HFA 108 (90 Base) MCG/ACT Aerosol Solution INHALE 2 PUFFS BY MOUTH EVERY 4 HOURS NEEDED FOR WHEEZING Inhalation; Duration: 17 Days Active Amiodarone HCl 200 MG Tablet TAKE 1 TABLET BY MOUTH TWICE DAILY FOR 7 DAYS FOLLOWED BY 1 DAILY THEREAFTER Oral; Duration: 28 days Unknown ARIPiprazole 20 MG Tablet 1 tablet Orall y Once a day Active Metoprolol Tartrate 50 MG Tablet TAKE 1 TABLET BY MOUTH TWICE DAILY Oral; Duration: 30 Days Active Omeprazole 40 MG Capsule Delayed Release 1 capsule 1/2 to 1 hour before morning meal Orally Once a day Active Prazosin HCl 5 MG Capsule 2 capsule Oral ly Once a day 08/03/2024 Active Sertraline HCl 200 MG Capsule 1 capsule Orally Once a day Active Crestor 10 MG Tablet 1 tablet Orally Onc e a day; Duration: 90 days 12/05/2024 Active Tamsulosin HCl 0.4 MG Capsule 2 capsules orally once a day Active Eliquis 5 MG Tablet 1 tablet Orally twic e a day; Duration: 90 days 03/06/2025 Active Gabapentin 600 MG Tablet 2 tablets orall y once daily Active hydrOXYzine Pamoate 50 MG Capsule 1 capsule at bedtime as needed Orally Once a day As needed Active Lisinopril 10 MG Tablet 1 tablet Orally Once a day Active Social History Tobacco Use: Social History Observation Description Date Details (start date - stop date) Former Smoker NA - NA Social History Drugs/Alcohol: Social Info Question Answer Notes Drugs Have you used drugs other than those for medical reasons in the past 12 months? History of IV drug use Caffeine Intake: 1-2 cups per day energy drin k Tobacco Use: Social Info Question Answer Notes Tobacco Control (Standard) Tobacco use: Former smoker How long has it been since you last smoked? 3-6 months Additional Details Category Social Info Options Details Drugs/Alcohol: Do you smoke marijuana? Ad mits Do you drink alcohol? 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) Active confirmed Problem Persistent atrial fibrillation (disorder) (150810057) Other persistent atrial fibrillation (I48.19) Active confirmed Problem Essential hypertension (22322506) Essential hypertension (I10) Active confirmed Problem Cervical radiculopathy (49374966) Cervical radiculopathy (M54.12) Active confirmed Problem Dyspnea (100956419) SOB (shortness of breath) (R06.02) Active confirmed Problem Lumbosacral spondylosis with radiculopathy (258001237) Lumbosacral spondylosis with radiculopathy (M47.27) Active confirmed Problem Dizziness (382243022) Dizziness (R42) Active confirmed Problem Cervical disc disorder (803386136) DDD (degenerative disc disease), cervical (M50.30) Active confirmed Problem Mitral regurgitation (36034712) Mitral regurgitation (I34.0) Active confirmed Problem Cervical spondylosis without myelopathy (144723673) Cervical spondylosis with radiculopathy (M47.22) Active confirmed Problem Atrial fibrillation (21110200) Paroxysmal A-fib (I48.0) Active confirmed Problem Tobacco use (202763603) Vapes nicotine containing substance (Z72.0) Active confirmed Problem Abnormal gait (96616149) Abnormality of gait and mobility (R26.9) Active confirmed Problem Left ventricular outflow obstruction (Q24.8) Active confirmed Vital Signs Heart Rate 60 /min 03/06/2025 Blood pressure diastolic 90 mm Hg 03/06/2025 Oximetry 96 % 03/06/2025 Height-cm 172.72 cm 03/06/2025 Weight-kg 115.62 kg 03/06/2025 Height 68 in 03/06/2025 Blood pressure systolic 140 mm Hg 03/06/2025 Weight 254.9 lbs 03/06/2025 BMI 38.75 kg/m2 03/06/2025 Encounters Encounter Location Date Provider Diagnosis [facility] [address] [place] [address] 09/26/2024 Donna Ace [facility] [address] [place] [address] 01/19/2025 Donna Ace [facility] [address] [address] 07/26/2024 Howard Gaspar Chronic pain syndrom e G89.4 ; DDD (degenerative disc disease), cervical M50.30 ; Cervical spondylosis with radiculopathy M47.22 ; Degeneration of intervertebral disc of lumbar region with discogenic back pain and lower extremity pain M51.362 ; Lumbosacral spondylosis with radiculopathy M47.27 and Abnormality of gait and mobility R26.9 [facility] [address] [facility] [place] [address] 09/05/2024 Howard Gaspar Cervical spondylosis with radiculopathy M47.22 [facility] [address] [place] [address], [place] [address] 09/13/2024 Donna Ace Paroxysmal A-fib I48.0 ; Left ventricular outflow obstruction Q24.8 ; Essential hypertension I10 ; Rheumatic mitral stenosis I05.0 and Vapes nicotine containing substance Z72.0 [facility] [address] [address] 09/27/2024 Howard Gaspar Chronic pain syndrom e G89.4 ; DDD (degenerative disc disease), cervical M50.30 ; Cervical spondylosis with radiculopathy M47.22 ; Degeneration of intervertebral disc of lumbar region with discogenic back pain and lower extremity pain M51.362 ; Lumbosacral spondylosis with radiculopathy M47.27 and Abnormality of gait and mobility R26.9 [facility] [address] [facility] [place] [address] 09/28/2024 Leila Samm e Cervical radiculopathy M54.12 [facility] [address] [place] [address], [place] [address] 11/13/2024 Donna Ace Paroxysmal A-fib I48.0 ; SOB (shortness of breath) R06.02 ; Essential hypertension I10 ; Left ventricular outflow obstruction Q24.8 ; Mitral regurgitation I34.0 and Vapes nicotine containing substance Z72.0 [facility] [address] [place] [address], [place] [address] 01/15/2025 Donna Ace SOB (shortness of breath) R06.02 ; Dizziness R42 ; Paroxysmal A-fib I48.0 ; Essential hypertension I10 ; Left ventricular outflow obstruction Q24.8 ; Mitral regurgitation I34.0 and Vapes nicotine containing substance Z72.0 [facility] [address] [place] [address], [place] [address] 03/06/2025 Donna Ace Paroxysmal A-fib I48.0 ; Essential hypertension I10 ; Left ventricular outflow obstruction Q24.8 ; Mitral regurgitation I34.0 and Vapes nicotine containing substance Z72.0 [facility] [address] [place] [address], [place] [address] 08/03/2024 Donna Ace [facility] [address] [facility] [place] [address] 08/23/2024 Howard Gaspar [facility] [address] [place] [address], [place] [address] 09/26/2024 Donna Ace Rheumatic mitral stenosis I05.0 [facility] [address] [place] [address], [place] [address] 10/03/2024 Donna Ace [facility] [address] [facility] [place] [address] 10/17/2024 Howard Gaspar [facility] [address] [place] [address] 11/29/2024 Donna Ace [facility] [address] [place] [address] 01/31/2025 Donna Ace [facility] [address] [place] [address] 03/21/2025 Donna Ace Assessments Encounter Date Diagnosis (ICD Code) Assessment Notes Treatment Notes Treatment Clinical Notes Section Notes 07/26/2024 Chronic pain syndrome (ICD-10 - G89.4) This is a pleasant gentleman I hadn't seen since March. We had referred him for a cervical MRI but it took him a while to get it here in [place]. It sounded like he had some issues [...] to see someone that operates here in [place] so we will get him in with [...] Based on the results of previous diagnostic JUN, a therapeutic JUN is recommended. Expectation from [...] spondylosis with radiculopathy (ICD-10 - M47.22) 09/13/2024 Paroxysmal A-fib (ICD-10 - I48.0) Patient [...] heart rate of 55 so sinus bradycardia 09/13/2024 Left ventricular outflow obstruction (ICD-10 - [...] B/L upper extremity EMG/NCV with Dr. Hammond 09/28/2024 Cervical radiculopathy (ICD-10 - M54.12) 11/13/2024 Paroxysmal A-fib (ICD-10 - I48.0) Patient has new onset of A-fib which was confirmed by twelve-lead EKG back in June 2024. Giacomo Vascor 1 Continue 325mg of aspirin Continue metoprolol diltiazem 11/13/2024 SOB (shortness of breath) (ICD-10 - [...] abnormal then we will consider stress test. 01/15/2025 SOB (shortness of breath) (ICD-10 - R06.02) The patient has been on good medical therapy including high dose of metoprolol and diltiazem. His heart rate is 60s. However he still report shortness of breath and dizziness which may be from his bradycardia due to high dose of beta-sergio or calcium channel sergio or he could be LVOT obstruction which was documented in June 2024. Obtain monitor for 24 hours to exclude any significant bradycardia. Dobutamine treadmill stress echocardiogram to look at LVOT gradient at rest and exercise. 01/15/2025 Dizziness (ICD-10 - R42) With a monitor for 48 hours 03/06/2025 Paroxysmal A-fib (ICD-10 - I48.0) Patient has new onset of A-fib which was confirmed by twelve-lead EKG back in June 2024. Patient has recent admission to [facility] in [facility] for another episode of A-fib Giacomo Vascor 2 due to hypertension and his CAD based on CT calcium score Stop aspirin Start Eliquis 5 mg twice a day for CVA prevention Continue metoprolol Obtain medical record from [facility] due to recent admission EKG in office today indication is A-fib hypertension findings are sinus rhythm with heart rate of 59 unremarkable EKG 03/06/2025 Essential hypertension (ICD-10 - I10) Blood pressure is 140/90, heart rate is 60 EKG in office today indication is A-fib hypertension findings are sinus rhythm with heart rate of 59 unremarkable EKG 03/06/2025 Left ventricular outflow obstruction (ICD-10 - Q24.8) Most recent stress echocardiogram for evaluation of LVOT obstruction showed at the peak exercise his LVOT peak pressure gradient was 19 mmHg which increased to 21 mmHg with Valsalva Continue aggressive medical therapy with beta-sergio heart rate is 60 EKG in office today indication is A-fib hypertension findings are sinus rhythm with heart rate of 59 unremarkable EKG 01/15/2025 Paroxysmal A-fib (ICD-10 - I48.0) Patient has [...] No murmur today Continue diltiazem and metoprolol 01/15/2025 Essential hypertension (ICD-10 - I10) Blood pressure today is 118/84, heart rate is 60 03/06/2025 Mitral regurgitation (ICD-10 - I34.0) EKG in office today indication is A-fib hypertension findings are sinus rhythm with heart rate of 59 unremarkable EKG 03/06/2025 Vapes nicotine containing substance (ICD-10 - Z72.0) EKG in office today indication is A-fib hypertension findings are sinus rhythm with heart rate of 59 unremarkable EKG 01/15/2025 Left ventricular outflow obstruction (ICD-10 - Q24.8) [...] m/s heart rate was 59 to 60s The patient continued to report dizziness and shortness of breath. Treadmill stress echocardiogram. 11/13/2024 Mitral regurgitation (ICD-10 - I34.0) 09/27/2024 Degeneration of intervertebral disc of lumbar region with discogenic back pain and lower extremity pain (ICD-10 - M51.362) 09/13/2024 Vapes nicotine containing substance (ICD-10 - Z72.0) EKG in office today indication is A-fib hypertension findings are sinus rhythm with PAC heart rate of 55 so sinus bradycardia 07/26/2024 Lumbosacral spondylosis with radiculopathy (ICD-10 - M47.27) 07/26/2024 Abnormality of gait and mobility (ICD-10 - R26.9) 09/27/2024 Lumbosacral spondylosis with radiculopathy (ICD-10 - M47.27) 11/13/2024 Vapes nicotine containing substance (ICD-10 - Z72.0) 01/15/2025 Mitral regurgitation (ICD-10 - I34.0) 01/15/2025 Vapes nicotine containing substance (ICD-10 - Z72.0) 09/27/2024 Abnormality of gait and mobility (ICD-10 - R26.9) 07/26/2024 Other Ward German am scribing for Dr. Howard Gaspar. I, Dr. Howard Gaspar, personally performed the services described in this documentatio n, as scribed by Ward Gorman, and it is both accurate and complete. 09/13/2024 Other Rocio German am scribing for Donna Ace MD. Donna German MD, personally performed the services prescribed in this documentatio n, as scribed by Rocio Donovan and it is both accurate and complete. EKG in office today indication is A-fib hypertension findings are sinus rhythm with PAC heart rate of 55 so sinus bradycardia 09/27/2024 Other Ward German am scribing for Dr. Howard Gaspar. I, Dr. Howard Gaspar, personally performed the services described in this documentation, as scribed by Ward Gorman, and it is both accurate and complete. 11/13/2024 Other Rocio German am scribing for Donna Ace MD. Donna German MD, personally performed the services prescribed in this documentatio n, as scribed by Rocio Donovan and it is both accurate and complete. 01/15/2025 Other Rocio German am scribing for Donna Ace MD. Donna German MD, personally performed the services prescribed in this documentatio n, as scribed by Rocio Donovan and it is both accurate and complete. 03/06/2025 Other Rocio German am scribing for Donna Ace MD. Donna German MD, personally performed the services prescribed in this documentatio n, as scribed by Rocio Donovan and it is both accurate and complete. EKG in office today indication is A-fib hypertension findings are sinus rhythm with heart rate of 59 unremarkable EKG Plan Of Treatment Pending Test Test Name Order Date Echo Rest/Stress with and without Contra st [id number], [id number] 01/15/2025 Electrocardiogram (EKG) - [id number] 09/14/19 25 Schedule Confirmation 06/30/2024 Next Appt Details Provider Name:Donna gonzalez, 06/28/2025 01:45:00 PM, [address], [place], [address], Insurance Providers Payer Name Payer Address Payer Phone Subscriber Number Group Number Insured Name Patient Relationship to Insured Coverage Start Date Coverage End Date [employer] [address] [place] [phone] [id number] Carlos Alberto Jackson Self - patient is the insured Medical (General) History Medical History History ICD Code Chronic pain syndrome arthritis afib bipolar anxiety Gerd hypertension covid vaccinated covid+ x2 Surgical History Surgery Date(Month/Year) Cholecystectomy 07/2024 Elbow surgery Hospitalization History Reason Date(Month/Year) 1. Intractable nausea and vomiting 2. Gastroenteritis 06/25/2024 AFIB with RVR 6.2024 [facility] . Atrial fibrillation wit h RVR, converted to sinus rhythm on diltiazem 06/29/2024
[2025-03-28 15:58] VITALS: BP 155/91; PULSE 107; TEMP 36.9; O2SAT 97
--- NOTE | 2025-03-28 16:03 | XR_ITS ---
WS: [id number] XR chest 1V portable [id number] REASON FOR EXAM: chest pain FINDINGS: The chest is unchanged compared to 12/29/2024. Mild tortuosity of the thoracic aorta. Normal heart size. Calcified granulomatous disease bilaterally. No acute pulmonary parenchymal or pleural abnormality. Mild degenerative spondylosis in the mid and lower thoracic spine. XR/XR chest 1V portable [id number] IMPRESSION: Stable chest without acute abnormality.
[2025-03-28 16:11] LABS: Hematocrit 50.4 % (37-53); Hemoglobin 17.00 g/dL (11.27-16.99); Mean Corpuscular HGB Conc 33.7 g/dL (30-55); Mean Corpuscular Hemoglobin 29.3 pg (27-33); Mean Corpuscular Volume 86.7 fl (82-101); Nucleated Red Blood Cells % 0 %; Platelet Count 291 10^3/cmm (157-399); Red Blood Count 5.81 10^6/uL (3.85-5.65); White Blood Count 12.23 10^3/uL (3.29-11.43)
[2025-03-28 16:26] LABS: INR 0.91 (0.8-1.2); Prothrombin Time 12.90 SECONDS (12.1-14.9)
[2025-03-28 16:27] LABS: Partial Thromboplastin Time 27.0 SECONDS (23.9-36.7)
[2025-03-28 16:50] LABS: Troponin(5th) Baseline 51 ng/L (0-15)
--- NOTE | 2025-03-28 16:51 | W.ED.CHESTPA ---
HPI - Chest Pain General: Chief Complaint: Chest Pain Stated Complaint: CP SOB [facility] Sent Time Seen by Provider: 03/28/25 15:52 History of Present Illness: 54-year-old male history of hypertension, paroxysmal A-fib on amiodarone compliant with same, on anticoagulation compliant with same, no diuretic use, presenting with 1 day history of intermittent palpitations and chest pain, recurrent vomiting, diaphoresis, feeling of generalized weakness/unwellness, mild shortness of breath, no fevers or cough, no recent illnesses or infections, denies any drug use, denies leg swelling or calf tenderness, no known intrinsic obstructive coronary artery disease. Related Data Home Medications ?Medication ?Instructions ?Recorded ?Confirmed aripiprazole 20 mg tablet (Abilify) 20 mg PO BEDTIME 03/29/24 03/28/25 melatonin 5 mg capsule 5 mg PO BEDTIME PRN Sleep 03/29/24 03/28/25 prazosin 5 mg capsule 10 mg PO BEDTIME PRN Nightmares 03/29/24 03/28/25 sildenafil 100 mg tablet 100 mg PO DAILY PRN Sexual Activity 03/29/24 03/28/25 tamsulosin 0.4 mg capsule 0.4 mg PO QPM 03/29/24 03/28/25 omeprazole 40 mg capsule,delayed 40 mg PO QAM 08/05/24 03/28/25 release aspirin 81 mg tablet,delayed 81 mg PO DAILY 12/29/24 03/28/25 release (Jay Low Dose Aspirin) chlorhexidine gluconate 4 % See Rx Instructions .Route .COMPLEX 12/29/24 03/28/25 topical liquid ketoconazole 1 % shampoo See Rx Instructions .Route .COMPLEX 12/29/24 03/28/25 rosuvastatin 10 mg tablet 10 mg PO DAILY 12/29/24 03/28/25 selenium sulfide 2.25 % shampoo See Rx Instructions .Route .COMPLEX 12/29/24 03/28/25 sertraline 100 mg tablet (Zoloft) 100 mg PO QAM 12/29/24 03/28/25 amiodarone 200 mg tablet (Pacerone) 200 mg PO DAILY 03/28/25 03/28/25 clindamycin phosphate 1 % lotion 1 applic topical DAILY PRN rash on 03/28/25 03/28/25 back/shoulders gabapentin 600 mg tablet 600 mg PO BID anxiety 03/28/25 03/28/25 magnesium citrate See Rx Instructions .Route .COMPLEX 03/28/25 03/28/25 metoprolol tartrate 50 mg tablet 50 mg PO BID 03/28/25 03/28/25 multivitamin 1 tab PO DAILY 03/28/25 03/28/25 Previous Rx's ?Medication ?Instructions ?Recorded bisacodyl 5 mg tablet,delayed 5 mg PO DAILY #4 tabs 03/21/25 release (Dulcolax (bisacodyl)) ondansetron 8 mg disintegrating 8 mg PO Q8H PRN nausea and 03/21/25 tablet vomiting #3 tabs Allergies Allergy/AdvReac Type Severity Reaction Status Date / Time clonazepam Allergy ADR-Irritab Verified 03/28/25 16:01 le Opioids - Morphine Analogues Allergy ADR-Nausea Verified 03/28/25 16:01 [facility] ED PFSH: Medical History Marijuana use Biliary dyskinesia GERD (gastroesophageal reflux disease) Hypertensive urgency A-fib BPH (benign prostatic hyperplasia) Hypertension Hyperlipidemia Surgical History History of surgery on arm right arm -bicep Hx of colonoscopy 3 years ago- [place] History of hernia surgery 04/19/24 Open umbilical hernia repair using dura mesh- Dr Herrera Social History Smoking and tobacco/nicotine status: former use of tobacco/nicotine Alcohol intake: never Physical Exam Narrative: EXAM NARRATIVE: Gen: A&Ox4, no acute distress, mildly diaphoretic HEENT: Normocephalic, atraumatic, no scleral icterus, external ears normal, moist mucous membranes Neck: Supple, full range of motion, no observable masses Lungs: No Respiratory distress, Lungs clear to auscultation bilaterally no rales, rhonchi, wheezing CV: Regular rate and rhythm, no murmur, no pitting edema to lower extremities bilaterally Abdomen: Soft, nondistended, nontender to palpation MSK: No joint swelling, FROM all 4 extremities Skin: No rashes, petechiae, lesions. Normal color per patient. Neuro: Alert and oriented, no slurred speech, sensation and strength grossly intact all 4 extremities Psych: Appropriate for situation. Course Reevaluation(s): Reevaluation #1: Patient reevaluated, symptoms improved, lab work showing rhabdo relatively mild and improving after fluid hydration, troponin stable, mildly elevated D-dimer CTA negative for PE or acute intrapulmonary pathology, stable for discharge with recommended hydration at home and PCP follow-up Time: 20:22 Vital Signs: Vital signs: Vital Signs Temperature 98.4 F 03/28/25 15:58 Pulse Rate 101 H 03/28/25 19:20 Respiratory Rate 16 03/28/25 19:20 Blood Pressure 158/88 03/28/25 19:20 Pulse Oximetry 96 03/28/25 19:20 Oxygen Delivery Me thod Room Air 03/28/25 19:20 MDM - Chest Pain Medical Decision Making 54-year-old male, history of hypertension, A-fib on amiodarone and Eliquis, gastroenteritis, presenting with intermittent chest pains vomiting and palpitations x 24 hours, generalized weakness, mild shortness of breath without hypoxia or tachypnea, on exam patient was mildly diaphoretic and had a borderline blood sugar of 70, given orange juice and fluids and reports now feeling much better, diaphoresis improved, initial EKG showing sinus tachycardia 111 bpm without obvious acute ischemia, plan for cardiac workup, rule out pancreatitis or primary GI cause, no Overton sign/right upper quadrant tenderness to suggest an acute cholecystitis or symptomatic cholelithiasis although considered, reassess for disposition. Lab Data Labs showing mild leukocytosis, hemoconcentration with elevated hemoglobin, mild THIAGO/borderline elevated creatinine 1.4, there was an elevated CK level indicative of mild rhabdo myolysis improved after fluids, mildly elevated Trope stable on repeat 03/28/25 16:00 03/28/25 16:00 Radiology Impressions Chest X-Ray 03/28/25 16:03 IMPRESSION: Stable chest without acute abnormality. Chest CTA 03/28/25 17:09 IMPRESSION: 1. No definitive radiographic evidence of significant pulmonary embolism or right heart strain. 2. Aortic and coronary atherosclerosis. 3. No acute infiltrate or effusion. Laboratory Results WBC 12.23 10^3/uL (3.29-11.43) H 03/28/25 16:00 RBC 5.81 10^6/uL (3.85-5.65) H 03/28/25 16:00 Hgb 17.00 g/dL (11.27-16.99) H 03/28/25 16:00 Hct 50.4 % (37-53) 03/28/25 16:00 MCV 86.7 fl (82-101) 03/28/25 16:00 MCH 29.3 pg (27-33) 03/28/25 16:00 MCHC 33.7 g/dL (30-55) 03/28/25 16:00 RDW 13.7 % (12.1-15.1) 03/28/25 16:00 Plt Count 291 10^3/cmm (157-399) 03/28/25 16:00 MPV 11.7 fL (7.4-10.4) H 03/28/25 16:00 Neut % (Auto) 77.0 % 03/28/25 16:00 Lymph % (Auto) 14.5 % 03/28/25 16:00 [place] % (Auto) 7.3 % 03/28/25 16:00 Eos % (Auto) 0.3 % 03/28/25 16:00 Baso % (Auto) 0.7 % 03/28/25 16:00 Neut # (Auto) 9.42 10^3/uL (1.8-7.7) H 03/28/25 16:00 Lymph # (Auto) 1.8 10^3/uL (0.8-4.8) 03/28/25 16:00 [place] # (Auto) 0.9 10^3/uL (0.2-0.9) 03/28/25 16:00 Eos # (Auto) 0.0 10^3/uL (0.0-0.8) 03/28/25 16:00 Baso # (Auto) 0.1 10^3/uL (0.0-0.1) 03/28/25 16:00 Nucleated RBC % (auto) 0 % 03/28/25 16:00 Nucleated RBCs # 0.0 /100WBC 03/28/25 16:00 PT 12.90 SECONDS (12.1-14.9) 03/28/25 16:00 INR 0.91 (0.8-1.2) 03/28/25 16:00 APTT 27.0 SECONDS (23.9-36.7) 03/28/25 16:00 D-Dimer 0.80 ug/mLFEU (0-0.59) H 03/28/25 16:00 Sodium 143 mmol/L (136-145) 03/28/25 16:00 Potassium 4.0 mmol/L (3.5-5.1) 03/28/25 16:00 Chloride 103 mmol/L (98-107) 03/28/25 16:00 Carbon Dioxide 25 mmol/L (22-29) 03/28/25 16:00 Anion Gap 19.0 (5-19) 03/28/25 16:00 BUN 11 mg/dL (6-20) 03/28/25 16:00 Creatinine 1.4 mg/dL (0.7-1.2) H 03/28/25 16:00 GFR Calculation 53.2 mL/min (90-130) L 03/28/25 16:00 Glucose 79 mg/dL (65-115) 03/28/25 16:00 POC Glucose 76 mg/dL (70-110) 03/28/25 16:27 Calculated Osmolality 294 mOsm/kg (285-295) 03/28/25 16:00 Calcium 9.7 mg/dL (8.5-10.5) 03/28/25 16:00 Total Bilirubin 0.7 mg/dL (0.15-1.2) 03/28/25 16:00 AST 54 U/L (0-40) H 03/28/25 16:00 ALT 39 U/L (0-41) 03/28/25 16:00 Alkaline Phosphatase 59 U/L (40-130) 03/28/25 16:00 Creatine Kinase 1149 U/L (39-308) H* 03/28/25 18:10 Troponin T Baseline 51 ng/L (0-15) H 03/28/25 16:00 Troponin T 120 Minute 39.16 ng/L (0-15) H 03/28/25 18:10 Delta Troponin T -11.84 ABS# (0-10) L 03/28/25 18:10 NT-Pro-B Natriuret Pep 162 pg/mL (0-125) H 03/28/25 16:00 Total Protein 7.5 g/dL (6.6-8.7) 03/28/25 16:00 Albumin 4.8 g/dL (3.5-5.2) 03/28/25 16:00 Globulin 2.7 g/dL (1.3-4.6) 03/28/25 16:00 Lipase 252 U/L (13-60) H 03/28/25 16:00 TSH 4.60 uIU/mL (0.27-4.20) H 03/28/25 16:00 Influenza A (PCR) Negative (Negative) 03/28/25 16:31 Influenza Type B (PCR) Negative (Negative) 03/28/25 16:31 RSV (PCR) Negative (Negative) 03/28/25 16:31 SARS-CoV-2 (PCR) Negative (Negative) 03/28/25 16:31 All radiology interpretation(s) finalized by discharge ED provider radiology interpretation(s): Chest x-ray normal, no consolidations or effusions or pulmonary edema CTA no acute intrapulmonary pathology no PE EKG Data EKG 1: I personally reviewed and interpreted this EKG as follows: EKG interpretation date: 03/28/25 EKG interpretation time: 16:55 Interpretation: Sinus tachycardia at 111 bpm, borderline left atrial enlargement, nonspecific T wave abnormality possibly due to poor baseline and lateral and inferior leads although suspect T wave flattening is present, no STEMI, no ectopy, QTc 385 ms EKG 2: I personally reviewed and interpreted this EKG as follows: EKG interpretation date: 03/28/25 EKG interpretation time: 18:00 Interpretation: Sinus rhythm at 93 bpm, nonspecific T wave abnormality flattening in aVL no significant change, QTc 359 ms, no STEMI Discharge Plan Discharge Patient Disposition: Home Clinical Impression: Rhabdomyolysis Qualifiers: Rhabdomyolysis type: non-traumatic Qualified Code(s): M62.82 - Rhabdomyolysis Condition: Stable Prescriptions: No Action aripiprazole [Abilify] 20 mg tablet 20 mg PO BEDTIME melatonin 5 mg capsule 5 mg PO BEDTIME PRN (Reason: Sleep) prazosin 5 mg capsule 10 mg PO BEDTIME PRN (Reason: Nightmares ) tamsulosin 0.4 mg capsule 0.4 mg PO QPM sildenafil 100 mg tablet 100 mg PO DAILY PRN (Reason: Sexual Activity) Rx Instructions: administer 30 minutes to 4 hours before activity ondansetron 8 mg tablet,disintegrating 8 mg PO Q8H PRN (Reason: nausea and vomiting) Qty: 3 0RF bisacodyl [Dulcolax (bisacodyl)] 5 mg tablet,delayed release (DR/EC) 5 mg PO DAILY Qty: 4 0RF Rx Instructions: take as directed for colonoscopy sertraline [Zoloft] 100 mg Tablet 100 mg PO QAM aspirin [Jay Low Dose Aspirin] 81 mg Tablet,Delayed Release (Dr/Ec) 81 mg PO DAILY ketoconazole 1 % Shampoo See Rx Instructions .ROUTE .COMPLEX Rx Instructions: Apply to scalp 2 to 3 times per week as needed. Allow to sit 5 minutes before rinsing. Shake well. External use only. rosuvastatin 10 mg Tablet 10 mg PO DAILY chlorhexidine gluconate 4 % Liquid See Rx Instructions .ROUTE .COMPLEX Rx Instructions: Lather 1 applic topically on body in shower every day and rinse as directed . selenium sulfide 2.25 % Shampoo See Rx Instructions .ROUTE .COMPLEX Rx Instructions: Use as directed to affected areas once daily as needed. omeprazole 40 mg capsule,delayed release(DR/EC) 40 mg PO QAM multivitamin Tablet 1 tab PO DAILY gabapentin 600 mg Tablet 600 mg PO BID metoprolol tartrate 50 mg tablet 50 mg PO BID clindamycin phosphate 1 % Lotion 1 applic TOPICAL DAILY PRN (Reason: rash on back/shoulders) amiodarone [Pacerone] 200 mg tablet 200 mg PO DAILY magnesium citrate Solution See Rx Instructions .ROUTE .COMPLEX Rx Instructions: Take one bottle at 12PM and second bottle at 08:00PM the night before colonoscopy Discharge Orders: Discharge ED (Routine); Ordered 03/28/25 Ordered By: Abel Moreno Referrals: Alice Pham FNP [Primary Care Provider, Nurse Practitioner] Patient Instructions: Patient Portal & Carlos Instructions, Rhabdomyolysis (ED) Print Language: Guatemalan Coding Level of Care Code ED Retail Receiving Clerk for Leonid Alva
[2025-03-28 16:53] LABS: Potassium 4.0 mmol/L (3.5-5.1)
[2025-03-28 16:55] LABS: Alanine Aminotransferase 39 U/L (0-41); Albumin Level 4.8 g/dL (3.5-5.2); Alkaline Phosphatase 59 U/L (40-130); Anion Gap 19.0 (5-19); Aspartate Amino Transferase 54 U/L (0-40); Blood Urea Nitrogen 11 mg/dL (6-20); Calcium 9.7 mg/dL (8.5-10.5); Carbon Dioxide 25 mmol/L (22-29); Chloride 103 mmol/L (98-107); Creatinine Clr Calc Pharmacy 75.4279; Globulin 2.7 g/dL (1.3-4.6); Glucose 79 mg/dL (65-115); Lipase 252 U/L (13-60); NT Pro B Type Natriuretic Pept 162 pg/mL (0-125); Osmolality Calculated 294 mOsm/kg (285-295); Sodium 143 mmol/L (136-145); Thyroid Stimulating Hormone 4.60 uIU/mL (0.27-4.20); Total Protein 7.5 g/dL (6.6-8.7)
[2025-03-28 17:00] VITALS: BP 152/97; PULSE 96; O2SAT 95
--- NOTE | 2025-03-28 17:09 | CTR_ITS ---
PROCEDURE INFORMATION: Exam: CTA Chest With Contrast Exam date and time: 03/28/2025 6:54 PM Age: 54 years old Clinical indication: Chest wall pain; Additional info: Chest pain, SOB, elevated d-dimer, mildly elevated tropbnp TECHNIQUE: Imaging protocol: Computed tomographic angiography of the chest with contrast. Exam focused on the arteries. 3D rendering (Not supervised by radiologist): MIP and/or 3D reconstructed images were created by the technologist. Radiation optimization: All CT scans at this facility use at least one of these dose optimization techniques: automated exposure control; mA and/or kV adjustment per patient size (includes targeted exams where dose is matched to clinical indication); or iterative reconstruction. Contrast material: OMNIPAQUE 350; Contrast volume: 80 ml; Contrast route: INTRAVENOUS (IV); COMPARISON: CR XR chest 1V portable [id number] 03/28/2025 4:03 PM RADIATION DOSE METRICS: Total DLP (mGy-cm): 584.61 FINDINGS: Pulmonary arteries: No definitive radiographic evidence of significant pulmonary embolism or right heart strain. Aorta: Aortic and coronary atherosclerosis. Lungs: No acute infiltrate or effusion. Pleural spaces: Unremarkable. No pneumothorax. No pleural effusion. Heart: Unremarkable. No cardiomegaly. No pericardial effusion. Lymph nodes: Unremarkable. No enlarged lymph nodes. Gallbladder and biliary ducts: Cholecystectomy clips. Spleen: Small splenule. Bones/joints: Mild degenerative changes of vertebral bodies with multilevel endplate spurring. Soft tissues: Unremarkable. CT/CT angio chest PE protcl [id number] IMPRESSION: 1. No definitive radiographic evidence of significant pulmonary embolism or right heart strain. 2. Aortic and coronary atherosclerosis. 3. No acute infiltrate or effusion.
[2025-03-28 17:12] LABS: Respiratory Syncytial Virus Ce NEGATIVE (Negative); SARS-CoV-2 PCR NEGATIVE (Negative)
[2025-03-28 18:00] VITALS: BP 166/101; PULSE 99; O2SAT 96
--- NOTE | 2025-03-28 18:03 | ECG_ITS ---
[facility] BX Test Date: 2025-03-28 Pat Name: Carlos Alberto Uriarte Department: Room: Gender: Male Sample Box Maker: : 1970 Requested By: Abel Moreno Order Number: [id number] Jean Baptiste MD: Saida Mancera M.D. Measurements Intervals [place] Rate: 93 P: 57 CA: 140 QRS: 68 QRSD: 85 T: 72 QT: 309 QTc: 384 Interpretive Statements SINUS RHYTHM POSSIBLE RIGHT VENTRICULAR CONDUCTION DELAY [RSR (QR) IN V1/V2] NONSPECIFIC T-WAVE ABNORMALITY Compared to ECG 03/28/2025 15:53:15 Sinus tachycardia no longer present T-wave abnormality still present Electronically Signed On 03-28-2025 23:40:03 CDT by Saida Mancera M.D. [email or web address]
[2025-03-28] MEDS: iohexol 350 mg/mL 500 mL Btl (per mL) IV (19:06)
[2025-03-28 19:08] LABS: Troponin 5 2HR 39.16 ng/L (0-15)
[2025-03-28 19:09] LABS: Troponin 5 2HR Delta -11.84 ABS# (0-10)
[2025-03-28 19:20] VITALS: BP 158/88; PULSE 101; RESP 16; O2SAT 96
[2025-03-28 20:25] LABS: Free T4 Free Thyroxine 1.54 ng/dL (0.82-1.77)
[2025-03-28 20:38] VITALS: BP 155/103; PULSE 92; O2SAT 95
== END 2025-03-28 20:50 | disposition home or self-care (01) ==
PROVIDERS: Emergency Provider Student in an Organized Health Care Education/Training Program; PCP Nurse Practitioner
DX: M62.82 Rhabdomyolysis (principal); Z79.82 Long term (current) use of aspirin; Z11.52 Encounter for screening for COVID-19; Z87.891 Personal history of nicotine dependence; E78.5 Hyperlipidemia, unspecified; I10 Essential (primary) hypertension; Z79.01 Long term (current) use of anticoagulants
CPT/HCPCS: 36415; 36416; 71045; 71275; 80053; 82550; 82962; 83690; 83880; 84439; 84443; 84484; 85025; 85378; 85610; 85730; 87637; 93005; 99285; J7030; J9999

== ENCOUNTER 2025-04-05 08:49 | Day surgery (SDC) | payer OTHER, SELFPAY ==
[2025-04-05 09:03] VITALS: BP 117/69; PULSE 70; RESP 18; TEMP 36.1; O2SAT 97
[2025-04-05 09:05] VITALS: BMI 38.0
--- NOTE | 2025-04-05 09:07 | W.PM.OPSUD ---
Surgery/Procedure H&P Update DATE OF PROCEDURE: April 05, 2025 DATE H&P PERFORMED: 03/21/25 H&P UPDATE INFORMATION: I have reviewed H&P completed within last 30 days, I have examined patient prior to procedure, No changes to prior documentation, H&P is in [facility] EMR on date indicated and Risks and benefits of the procedure reviewed PLANNED PROCEDURE: Operation Date: 04/05/25 10:25 Proposed Procedures p Colonoscopy 84448 G0121 Z12.11(Not Applicable) - Parvez Quintanilla MD
--- NOTE | 2025-04-05 10:06 | ANES.PREANE2 ---
Pre-Anesthetic Assessment Height/Weight: Height 1.73 m Weight 113.398 kg Temp Pulse Resp BP Pulse Ox O2 Del Method 97 F L 70 18 117/69 97 Room Air 04/05/25 09:03 04/05/25 09:03 04/05/25 09:03 04/05/25 09:03 04/05/25 09:03 04/05/25 09:03 Preop Diagnosis: abd pain Operation Date: 04/05/25 10:25 Proposed Procedures p Colonoscopy 97099 G0121 Z12.11(Not Applicable) - Parvez Quintanilla MD Was Beta Bety taken within 24 hours: Yes Last intake: Intake Last Liquid Date 04/04/25 Last Liquid Time 22:00 Last Solid Date 04/03/25 Last Solid Time 22:00 Last Intake: 02:20 Social No alcohol and No tobacco Exam oriented x 3 Airway Submandibular: within normal limits Mallampati: Class II Dentition: full Pulmonary None reported CV/HEM Hypertension None reported Hepatic None reported GI Gastroesophageal Reflux Disease [facility] [place] None reported Anesthetic Plan ASA status: 3 Anesthesia: MAC Risk of > 500 ml blood loss (7ml/kg in children): No Medications/Allergies Home Medications ?Medication ?Instructions ?Recorded ?Confirmed ?Last Taken ?Type aripiprazole 20 mg tablet (Abilify) 20 mg PO BEDTIME 03/29/24 04/02/25 04/04/25 History melatonin 5 mg capsule 5 mg PO BEDTIME PRN Sleep 03/29/24 04/02/25 04/01/25 History prazosin 5 mg capsule 10 mg PO BEDTIME PRN Nightmares 03/29/24 04/02/25 04/04/25 History sildenafil 100 mg tablet 100 mg PO DAILY PRN Sexual Activity 03/29/24 04/02/25 04/18/24 10:00 History tamsulosin 0.4 mg capsule 0.4 mg PO QPM 03/29/24 04/02/25 04/04/25 History omeprazole 40 mg capsule,delayed 40 mg PO QAM 08/05/24 04/02/25 04/04/25 History release chlorhexidine gluconate 4 % See Rx Instructions .Route .COMPLEX 12/29/24 04/02/25 04/04/25 History topical liquid ketoconazole 1 % shampoo See Rx Instructions .Route .COMPLEX 12/29/24 04/02/25 04/02/25 History rosuvastatin 10 mg tablet 10 mg PO DAILY 12/29/24 04/02/25 04/04/25 History selenium sulfide 2.25 % shampoo See Rx Instructions .Route .COMPLEX 12/29/24 04/02/25 04/02/25 History sertraline 100 mg tablet (Zoloft) 100 mg PO QAM 12/29/24 04/02/25 04/04/25 History ondansetron 8 mg disintegrating 8 mg PO Q8H PRN nausea and 03/21/25 04/02/25 Unknown Rx tablet vomiting #3 tabs amiodarone 200 mg tablet (Pacerone) 200 mg PO DAILY 03/28/25 04/02/25 04/05/25 History clindamycin phosphate 1 % lotion 1 applic topical DAILY PRN rash on 03/28/25 04/02/25 04/02/25 History back/shoulders gabapentin 600 mg tablet 600 mg PO BID anxiety 03/28/25 04/02/25 04/04/25 History metoprolol tartrate 50 mg tablet 50 mg PO BID 03/28/25 04/02/25 04/05/25 History multivitamin 1 tab PO DAILY 03/28/25 04/02/25 04/04/25 History Allergies Allergy/AdvReac Type Severity Reaction Status Date / Time clonazepam Allergy ADR-Irritab Verified 04/02/25 08:43 le Opioids - Morphine Analogues Allergy ADR-Nausea Verified 04/02/25 08:43 Current Medications Generic Name Dose Route Start Last Admin Trade Name Freq PRN Reason Stop Dose Admin Sodium Chloride 1,000 mls @ 15 mls/hr 04/05/25 08:53 04/05/25 09:36 Sodium Chloride 0.9% IV 04/06/25 08:52 15 mls/hr .Q24H PRN Administration COLONOSCOPY FLUIDS PFSH Anesthesia Medical History (Updated 04/05/25 @ 00:00 by JUANCARLOS [place]) Marijuana use Biliary dyskinesia GERD (gastroesophageal reflux disease) Hypertensive urgency A-fib BPH (benign prostatic hyperplasia) Hypertension Hyperlipidemia Surgical History History of surgery on arm right arm -bicep Hx of colonoscopy 3 years ago- [place] History of hernia surgery 04/19/24 Open umbilical hernia repair using dura mesh- Dr Herrera Social History Smoking and tobacco/nicotine status: former use of tobacco/nicotine Alcohol intake: never Data Anesthesia Cardiac Studies: Echocardiogram 12/30/24
[2025-04-05 10:59] VITALS: BP 106/55; PULSE 76; RESP 18; TEMP 36.2; O2SAT 94
--- NOTE | 2025-04-05 11:55 | ANE.PACU2 ---
Inpatient post-anesthesia follow up: Airway intact: Yes Vital signs: Temperature 97.2 F Pulse Rate 76 Respiratory Rate 18 Blood Pressure 106/55 Pulse Oximetry 94 Oxygen Delivery Me thod Room Air Oxygen Flow Rate Fraction of Inspir ed Oxygen Hydration adequate: Yes Nausea and vomiting: No Pain level: 1 Mental status: Baseline
== END 2025-04-05 11:58 | disposition home or self-care (01) ==
PROVIDERS: PCP Nurse Practitioner; Visit Provider Surgery
PROC: 0DJD8ZZ Inspection of Lower Intestinal Tract, Via Natural or Artificial Opening Endoscopic (ICD-10-PCS; CPT 45378; principal; 2025-04-05 10:25)
DX: Z12.11 Encounter for screening for malignant neoplasm of colon (principal); K64.8 Other hemorrhoids; D12.2 Benign neoplasm of ascending colon; D12.3 Benign neoplasm of transverse colon; D12.5 Benign neoplasm of sigmoid colon; Z79.82 Long term (current) use of aspirin; K21.9 Gastro-esophageal reflux disease without esophagitis; F12.90 Cannabis use, unspecified, uncomplicated; I48.91 Unspecified atrial fibrillation; I10 Essential (primary) hypertension; E78.5 Hyperlipidemia, unspecified; Z87.891 Personal history of nicotine dependence
CPT/HCPCS: 45380; 88305; J2704; J7030

== ENCOUNTER → 2025-05-02 10:41 | Outpatient (BNVA) | payer OTHER, SELFPAY | PROVIDERS: PCP Nurse Practitioner; Visit Provider Surgery | DX: Z09 Encounter for follow-up examination after completed treatment for conditions other than malignant neoplasm (principal); R03.0 Elevated blood-pressure reading, without diagnosis of hypertension | CPT/HCPCS: 99213 ==

== ENCOUNTER → 2025-05-03 08:39 | Outpatient (BNVA) | payer OTHER, SELFPAY | PROVIDERS: PCP Nurse Practitioner; Visit Provider Nurse Practitioner Family | DX: L73.9 Follicular disorder, unspecified (principal); L57.8 Other skin changes due to chronic exposure to nonionizing radiation; L81.4 Other melanin hyperpigmentation; X32.XXXA Exposure to sunlight, initial encounter; L57.3 Poikiloderma of Civatte; L57.0 Actinic keratosis; D48.5 Neoplasm of uncertain behavior of skin | CPT/HCPCS: 11102; 17000; 99214 ==